=== PATIENT | female | born 1950 | race Caucasian/White ===

== ENCOUNTER 2016-11-18 21:07 | Emergency (ER) | payer MEDICARE, MEDICAID ==
[2016-11-18 22:11] LABS: #Basophils 0.1 thou/uL (0.0-0.2); #Eosinphils 0.1 thou/uL (0.0-0.7); #Lymphocytes 2.6 thou/uL (1.20-3.40); #Monocytes 0.8 thou/uL (0.11-0.59); #Neutrophils 9.8 thou/uL (1.40-6.50); %Basophils 0.9 % (0.0-1.0); %Eosinophils 0.5 % (0.0-10.0); %Lymphocytes 19.2 % (21.0-51.0); %Monocytes 6.1 % (0.0-10.0); Hematocrit 39.1 % (36.0-47.0); Mean Platelet Volume 7.2 fL (7.4-10.4); Red Blood Cell (RBC) Count 4.36 mill/uL (4.20-5.40); White Blood Cell (WBC) Count 13.3 thou/uL (4.8-10.8)
[2016-11-18 22:16] LABS: ALT (SGPT) 25 U/L (8-55); AST (SGOT) 28 U/L (5-34); Alkaline Phosphatase 108 U/L (40-150); Anion Gap 18 mmol/L (10-20); BUN (Urea Nitrogen) 15 mg/dL (9.8-20.1); Bilirubin, Total 0.4 mg/dL (0.2-1.2); Calc. Creatinine Clearance 0 mL/min (70-130); Calcium 10.5 mg/dL (7.8-10.44); Carbon Dioxide 21 mmol/L (23-31); Chloride 105 mmol/L (98-107); Estimated GFR-MDRD 52; Globulin 3.7 g/dL (2.4-3.5)
== END 2016-11-18 22:48 | disposition home or self-care (01) ==
LOC: SCSER 21:07
DX: R19.7 Diarrhea, unspecified (principal); E78.5 Hyperlipidemia, unspecified; E78.00 Pure hypercholesterolemia, unspecified; K21.9 Gastro-esophageal reflux disease without esophagitis; I10 Essential (primary) hypertension; J45.909 Unspecified asthma, uncomplicated; Z87.891 Personal history of nicotine dependence; Z79.899 Other long term (current) drug therapy
CPT/HCPCS: 80053; 85025; 96360

== ENCOUNTER 2017-02-22 12:01 | Emergency (ER) | payer MEDICARE, MEDICAID | END 2017-02-22 12:23 | disposition home or self-care (01) | LOC: SCSER 12:01 | DX: R04.0 Epistaxis (principal); E78.5 Hyperlipidemia, unspecified; K21.9 Gastro-esophageal reflux disease without esophagitis; I10 Essential (primary) hypertension; J44.9 Chronic obstructive pulmonary disease, unspecified; F41.9 Anxiety disorder, unspecified; Z87.891 Personal history of nicotine dependence; Z79.52 Long term (current) use of systemic steroids; Z79.899 Other long term (current) drug therapy | CPT/HCPCS: 99283 ==

== ENCOUNTER 2017-03-11 17:02 | Emergency (ER) | payer MEDICARE, MEDICAID | END 2017-03-11 17:30 | disposition home or self-care (01) | LOC: SCSER 17:02 | DX: R09.81 Nasal congestion (principal); E78.5 Hyperlipidemia, unspecified; K21.9 Gastro-esophageal reflux disease without esophagitis; I10 Essential (primary) hypertension; J44.9 Chronic obstructive pulmonary disease, unspecified; F41.9 Anxiety disorder, unspecified; Z87.891 Personal history of nicotine dependence; Z79.899 Other long term (current) drug therapy | CPT/HCPCS: 30901; 99203; 99283; G0463 ==

== ENCOUNTER 2017-03-12 14:44 | Emergency (ER) | payer MEDICARE, MEDICAID | END 2017-03-12 15:45 | disposition home or self-care (01) | LOC: ERS 14:44 | DX: R09.81 Nasal congestion (principal); E78.5 Hyperlipidemia, unspecified; F41.9 Anxiety disorder, unspecified; J44.9 Chronic obstructive pulmonary disease, unspecified; K21.9 Gastro-esophageal reflux disease without esophagitis; I10 Essential (primary) hypertension; Z87.891 Personal history of nicotine dependence; Z79.899 Other long term (current) drug therapy | CPT/HCPCS: 99283 ==

== ENCOUNTER 2017-03-13 15:16 | Emergency (ER) | payer MEDICARE, MEDICAID | END 2017-03-13 15:26 | disposition home or self-care (01) | LOC: ERS 15:16 | DX: R04.0 Epistaxis (principal); E78.5 Hyperlipidemia, unspecified; K21.9 Gastro-esophageal reflux disease without esophagitis; I10 Essential (primary) hypertension; J44.9 Chronic obstructive pulmonary disease, unspecified; F41.9 Anxiety disorder, unspecified; Z87.891 Personal history of nicotine dependence | CPT/HCPCS: 99283 ==

== ENCOUNTER 2017-03-14 11:59 | Emergency (ER) | payer MEDICARE, MEDICAID | END 2017-03-14 12:48 | disposition home or self-care (01) | LOC: ERS 11:59 | DX: R09.81 Nasal congestion (principal); E78.5 Hyperlipidemia, unspecified; K21.9 Gastro-esophageal reflux disease without esophagitis; I10 Essential (primary) hypertension; J45.909 Unspecified asthma, uncomplicated; Z87.891 Personal history of nicotine dependence | CPT/HCPCS: 99214; 99283; G0463 ==

== ENCOUNTER 2017-03-15 18:00 | Emergency (ER) | payer MEDICARE, MEDICAID | END 2017-03-15 19:02 | disposition home or self-care (01) | LOC: SCSER 18:00 | DX: R09.81 Nasal congestion (principal); E78.5 Hyperlipidemia, unspecified; K21.9 Gastro-esophageal reflux disease without esophagitis; I10 Essential (primary) hypertension; J45.909 Unspecified asthma, uncomplicated; J44.9 Chronic obstructive pulmonary disease, unspecified; F41.9 Anxiety disorder, unspecified; Z87.891 Personal history of nicotine dependence; Z79.899 Other long term (current) drug therapy | CPT/HCPCS: 99283 ==

== ENCOUNTER 2017-04-11 16:16 | Emergency (ER) | payer MEDICARE, MEDICAID | END 2017-04-11 16:35 | disposition home or self-care (01) | LOC: ERS 16:16 | DX: R04.0 Epistaxis (principal); E78.5 Hyperlipidemia, unspecified; K21.9 Gastro-esophageal reflux disease without esophagitis; I10 Essential (primary) hypertension; J44.9 Chronic obstructive pulmonary disease, unspecified; F41.9 Anxiety disorder, unspecified; Z87.891 Personal history of nicotine dependence | CPT/HCPCS: 99283 ==

== ENCOUNTER 2017-04-12 09:12 | Outpatient (CLI) | payer MEDICARE, MEDICAID ==
--- NOTE | 2017-04-12 09:41 | RAD ---
PA AND LATERAL VIEWS CHEST: HISTORY: Dyspnea. FINDINGS: Comparison is made with the exam of 09/16/16. The heart size is normal. The lungs are well expanded with confluent areas of consolidation, pneumot horaces, or pleural effusions. There are mild degenerative changes in the spine. IMPRESSION: No acute process. POS: [facility]
== END 2017-04-12 09:13 | disposition home or self-care (01) ==
LOC: RAD 09:12
PROVIDERS: ATTEND Internal Medicine Critical Care Medicine
DX: R06.00 Dyspnea, unspecified (principal)
CPT/HCPCS: 71046

== ENCOUNTER 2017-05-30 14:34 | Emergency (ER) | payer MEDICARE, OTHER ==
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
[2017-05-30] MEDS ORDERED: Adacel (T-DAP) 0.5 ML VIAL ONE (15:31)
== END 2017-05-30 15:52 | disposition home or self-care (01) ==
LOC: ERS 14:34
DX: S80.02XA Contusion of left knee, initial encounter (principal); E78.5 Hyperlipidemia, unspecified; K21.9 Gastro-esophageal reflux disease without esophagitis; I10 Essential (primary) hypertension; J44.9 Chronic obstructive pulmonary disease, unspecified; F41.9 Anxiety disorder, unspecified; Z87.891 Personal history of nicotine dependence; W22.8XXA Striking against or struck by other objects, initial encounter
CPT/HCPCS: 90471; 90715

== ENCOUNTER 2017-07-25 17:08 | Emergency (ER) | payer MEDICARE, OTHER | END 2017-07-25 17:46 | disposition home or self-care (01) | LOC: ERS 17:08 | DX: R04.0 Epistaxis (principal); E78.5 Hyperlipidemia, unspecified; K21.9 Gastro-esophageal reflux disease without esophagitis; I10 Essential (primary) hypertension; J44.9 Chronic obstructive pulmonary disease, unspecified; F41.9 Anxiety disorder, unspecified; Z87.891 Personal history of nicotine dependence | CPT/HCPCS: 99283 ==

== ENCOUNTER 2017-09-25 09:32 | Emergency (ER) | payer MEDICARE, MEDICAID | END 2017-09-25 11:46 | disposition home or self-care (01) | LOC: ERS 09:32 | DX: R04.0 Epistaxis (principal); J06.9 Acute upper respiratory infection, unspecified; E78.5 Hyperlipidemia, unspecified; K21.9 Gastro-esophageal reflux disease without esophagitis; I10 Essential (primary) hypertension; J44.9 Chronic obstructive pulmonary disease, unspecified; Z87.891 Personal history of nicotine dependence; F41.9 Anxiety disorder, unspecified; Z79.899 Other long term (current) drug therapy | CPT/HCPCS: 99283 ==

== ENCOUNTER 2017-11-06 14:01 | Emergency (ER) | payer MEDICARE, MEDICAID ==
[2017-11-06 15:23] LABS: Base Excess-Venous 3.3 mmol/L (0 (+/- 2.5)); CO2 Tension (PvCO2) 47.3 mmHg (41.0-51.0); Calcium, Ionized 1.18 mmol/L (1.12-1.32); Hemoglobin - Calc 13.8 g/dL (12.0-18.0); O2 Tension (PvO2) 35.9 mmHg (35.0-45.0); Potassium 4.2 mmol/L (3.4-4.7); T. Carbon Dioxide 30.4 mmol/L (1.0-85.0); pH (Venous) 7.395 (7.35-7.45); vO2 Saturation-calc 67.8 % (94-98)
== END 2017-11-06 16:07 | disposition home or self-care (01) ==
LOC: ERS 14:01
DX: R20.2 Paresthesia of skin (principal); E78.5 Hyperlipidemia, unspecified; K21.9 Gastro-esophageal reflux disease without esophagitis; I10 Essential (primary) hypertension; J44.9 Chronic obstructive pulmonary disease, unspecified; F41.9 Anxiety disorder, unspecified; Z87.891 Personal history of nicotine dependence; Z79.899 Other long term (current) drug therapy
CPT/HCPCS: 82330; 82435; 82803; 84132; 84295; 85014; 99283

== ENCOUNTER 2017-11-15 09:19 | Outpatient (CLI) | payer MEDICARE, MEDICAID | END 2017-11-15 09:20 | disposition home or self-care (01) | LOC: BICMAMMO 09:19 | PROVIDERS: ATTEND Family Medicine | DX: Z12.31 Encounter for screening mammogram for malignant neoplasm of breast (principal); M81.0 Age-related osteoporosis without current pathological fracture; J44.9 Chronic obstructive pulmonary disease, unspecified; R92.1 Mammographic calcification found on diagnostic imaging of breast; Z80.3 Family history of malignant neoplasm of breast | CPT/HCPCS: 77063; 77067; 77080 ==

== ENCOUNTER 2017-12-23 21:00 | Emergency (ER) | payer MEDICARE, MEDICAID ==
--- NOTE | 2017-12-23 21:57 | RAD ---
CHEST ONE VIEW: HISTORY: Pain. COMPARISON: 09/16/2016 and 04/12/2017 FINDINGS: Normal cardiac silhouette. Pulmonary vessels and hilum are normal. Costophrenic angles are clear. Emphysema with chronic changes. No consolidation or mass. No pneumothorax or osseous abnormalities. IMPRESSION: 1. Emphysematous changes. 2. No acute process. POS: [facility]
[2017-12-23 22:04] LABS: #Eosinphils 0.1 thou/uL (0.0-0.7); #Lymphocytes 2.5 thou/uL (1.20-3.40); #Monocytes 0.9 thou/uL (0.11-0.59); #Neutrophils 7.1 thou/uL (1.40-6.50); %Basophils 0.5 % (0.0-1.0); %Eosinophils 1.2 % (0.0-10.0); %Lymphocytes 23.5 % (21.0-51.0); %Monocytes 8.5 % (0.0-10.0); %Neutrophils 66.4 % (42.0-75.0); Hemoglobin 12.6 g/dL (12.0-16.0); Mean Corpuscular HGB CONC 32.5 g/dL (32.0-36.0); Mean Corpuscular Hemoglobin 30.3 pg (27.0-31.0); Mean Corpuscular Volume 93.1 fL (78.0-98.0); Mean Platelet Volume 7.1 fL (7.4-10.4); Platelet Count 259 thou/uL (130-400); RBC Distribution Width 14.2 % (11.5-14.5); Red Blood Cell (RBC) Count 4.16 mill/uL (4.20-5.40); White Blood Cell (WBC) Count 10.7 thou/uL (4.8-10.8)
[2017-12-23 22:21] LABS: ALT (SGPT) 19 U/L (8-55); AST (SGOT) 22 U/L (5-34); Albumin 4.2 g/dL (3.4-4.8); Alkaline Phosphatase 95 U/L (40-150); Anion Gap 14 mmol/L (10-20); BUN (Urea Nitrogen) 13 mg/dL (9.8-20.1); Bilirubin, Total 0.4 mg/dL (0.2-1.2); Calc. Creatinine Clearance 0 mL/min (70-130); Calcium 10.1 mg/dL (7.8-10.44); Carbon Dioxide 23 mmol/L (23-31); Chloride 105 mmol/L (98-107); Estimated GFR-MDRD 47; Globulin 3.1 g/dL (2.4-3.5); Glucose 96 mg/dL (80-115); Potassium 4.1 mmol/L (3.5-5.1); Protein, Total 7.3 g/dL (6.0-8.3); Sodium 138 mmol/L (136-145)
[2017-12-23 22:26] LABS: CKMB 3.2 ng/mL (0-6.6); Troponin I Less than 0.010 ng/mL (< 0.028)
[2017-12-23] MEDS ORDERED: predniSONE 20 MG TAB ONE ×2 (22:49→22:51)
== END 2017-12-23 22:56 | disposition home or self-care (01) ==
LOC: ERS 21:00
DX: J44.1 Chronic obstructive pulmonary disease with (acute) exacerbation (principal); E78.5 Hyperlipidemia, unspecified; K21.9 Gastro-esophageal reflux disease without esophagitis; F41.9 Anxiety disorder, unspecified; Z87.891 Personal history of nicotine dependence; Z79.899 Other long term (current) drug therapy; I10 Essential (primary) hypertension
CPT/HCPCS: 36415; 71045; 80053; 82553; 84484; 85025; 93005; 94760; J7506

== ENCOUNTER 2017-12-25 16:58 | Inpatient (IN) | payer MEDICARE, MEDICAID ==
[~2017-12-25 16:58] MED LIST: Iopamidol 370 76% 100 ML VIAL ONE
[2017-12-25] MEDS ORDERED: Albuterol Sulfate 2.5 mg/0.5 ml Neb ONE ×2 (17:17)
[2017-12-25] MEDS ORDERED: Dexamethasone 10 MG/ML VIAL ONE (17:22)
[2017-12-25] MEDS ORDERED: Magnesium 2 GM/50 ML BAG (IN WATER) ONE (17:22)
[2017-12-25 17:28] LABS: Actual Bicarbonate (HCO3a) 20.9 mEq/L (22-28); Analyzer IN Cardio ER; Base Excess (BEa) -4.4 mEq/L (-2.0 to +3.0); CO2 Tension 39.4 mmHg (35.0-45.0); Calcium, Ionized 1.23 mmol/L (1.12-1.30); Carboxyhemoglobin (COHb) 0.6 gm% (0.0-3.0); Hemoglobin (Hb) 14.1 g/dL (12.0-16.0); O2 Tension (PaO2) 203.2 mmHg (> 80.0); Potassium - ABG Lab 4.77 mmol/L (3.70-5.30); pH, Arterial 7.34 (7.35-7.45)
[2017-12-25 17:29] LABS: Puncture Site RRA
[2017-12-25 17:36] LABS: #Eosinphils 0.1 thou/uL (0.0-0.7); #Lymphocytes 1.6 thou/uL (1.20-3.40); #Monocytes 0.6 thou/uL (0.11-0.59); #Neutrophils 13.5 thou/uL (1.40-6.50); %Basophils 0.1 % (0.0-1.0); %Eosinophils 0.8 % (0.0-10.0); %Lymphocytes 10.2 % (21.0-51.0); %Monocytes 3.5 % (0.0-10.0); %Neutrophils 85.4 % (42.0-75.0); Hemoglobin 13.9 g/dL (12.0-16.0); Mean Corpuscular HGB CONC 32.4 g/dL (32.0-36.0); Mean Corpuscular Hemoglobin 30.5 pg (27.0-31.0); Mean Corpuscular Volume 94.1 fL (78.0-98.0); Mean Platelet Volume 8.5 fL (7.4-10.4); Platelet Count 296 thou/uL (130-400); Red Blood Cell (RBC) Count 4.55 mill/uL (4.20-5.40); White Blood Cell (WBC) Count 15.8 thou/uL (4.8-10.8)
[2017-12-25 17:57] LABS: CKMB 3.2 ng/mL (0-6.6); Troponin I Less than 0.010 ng/mL (< 0.028)
[2017-12-25] MEDS ORDERED: levETIRAcetam In NaCl (Iso-Os) 1,000 MG in Premix Bag 1 BAG IVPB SCH (18:15)
[2017-12-25] MEDS ORDERED: fentaNYL Citrate/PF 2,000 MCG in Sodium Chloride 0.9% 60 ML IV SCH ×3 (18:21→23:11)
--- NOTE | 2017-12-25 18:21 | RAD ---
CHEST ONE VIEW: 12/25/17 COMPARISON: 12/23/17 HISTORY: Dyspnea FINDINGS: Normal cardiac silhouette. Atherosclerosis of the aortic knob. Pulmonary vessels and hilum are normal . Costophrenic angles are clear. Costophrenic angles are clear. Lungs are hyperinflated with chronic changes. Stable emphysematous change involving the right upper lobe. No significant pleural effusion. No pneumothorax or osseous abnormalities. IMPRESSION: 1. COPD. Hyperinflation. 2. Emphysema. POS: [facility]
[2017-12-25 18:22] LABS: Actual Bicarbonate (HCO3a) 19.6 mEq/L (22-28); Analyzer IN Cardio ER; CO2 Tension 43.4 mmHg (35.0-45.0); Calcium, Ionized 1.19 mmol/L (1.12-1.30); Hemoglobin (Hb) 12.6 g/dL (12.0-16.0); O2 Tension (PaO2) 315.2 mmHg (> 80.0); Potassium - ABG Lab 3.87 mmol/L (3.70-5.30); pH, Arterial 7.27 (7.35-7.45)
--- NOTE | 2017-12-25 18:54 | RAD ---
RIGHT HIP TWO VIEWS: 12/25/17 HISTORY: Trauma. Pain. FINDINGS: There is a right femoral neck fracture with associated foreshortening and deformity. The visualized b sebastian pelvis is unremarkable. IMPRESSION: Right femoral neck fracture. POS: [facility]
--- NOTE | 2017-12-25 19:00 | CT ---
NONCONTRAST HEAD CT: HISTORY: Altered mental status. COMPARISON: None. FINDINGS: No parenchymal hemorrhage. No extra-axial hematoma. No midline shift. Basilar cisterns are patent. Br ain volume, age appropriate. There is malacic change involving the left frontal and parietal lobe joseluis r the vertex. Remainder of the cerebrum demonstrates preservation of cortical brice-white matter diff erentiation, with the exception of a small focus of the sulci of the right parietal lobe also near th e vertex. No evidence of hydrocephalus. Hypoattenuation in the inferior right lentiform nucleus likel y due to a perivascular space versus remote lacunar infarction. Small area of atrophy in the left cerebellar hemisphere. Calvarium is intact. Adequate aeration of the sinuses. Minimal opacification of the left mastoid air cells. Cavernous carotid atherosclerosis is noted. IMPRESSION: 1. No acute intracranial process. 2. Chronic changes of the brain parenchyma as described above. 3. If there is concern, further evaluation with brain MRI. POS: [facility]
--- NOTE | 2017-12-25 19:04 | RAD ---
CHEST ONE VIEW: 12/25/17 COMPARISON: 12/25/17 HISTORY: Dyspnea. Status post tube placement. FINDINGS: Nasogastric tube extends beyond the diaphragm. Distal tip is not seen. Endotracheal tube extends beyo nd the clavicles. Stable opacification and changes of the lung parenchyma. Stable hyperinflation. Stable atherosclerosi s of the aorta. IMPRESSION: Interval placement of endotracheal and nasogastric tube. POS: [facility]
[2017-12-25 19:06] LABS: Bilirubin Negative (Negative); Blood, Urine Trace (Negative); Clarity CLEAR (Clear); Glucose, Urine (Dipstick) Negative (Negative); Leukocyte Negative (Negative); Nitrite Negative (Negative); Protein, Urine (Dipstick) 30 mg/dL (Neg-Trace); Specific Gravity, Urine 1.035 (1.002-1.036); Urobilinogen 0.2 mg/dL (0.2-1.0); pH, Urine 5.5 (5.0-9.0)
[2017-12-25 19:08] LABS: Bacteria/HPF None Seen HPF (None Seen); WBC/HPF 0-3 HPF (0-3)
--- NOTE | 2017-12-25 19:09 | RAD ---
PELVIS ONE VIEW: 12/25/17 HISTORY: Pain and trauma. FINDINGS: There appears to be an acute fracture involving the left superior pubic ramus. An inferior pubic erika s fracture on the left is not appreciated. Sacral ala are preserved. Sacroiliac joints are patent and symmetric. There is a right femoral neck fracture with foreshortening and patient rotation. Based on this single projection, no evidence of a left hip fracture. IMPRESSION: 1. Left superior pubic ramus fracture. Inferior pubic ramus fracture is not appreciated. 2. Right femoral neck fracture. POS: [facility]
[2017-12-25 19:10] LABS: Puncture Site RRA
[2017-12-25] MEDS ORDERED: Aspirin 300 MG Suppository ONE (19:15)
[2017-12-25 19:29] LABS: Hyaline Casts/LPF 0-3 HYALINE CAST LPF (0-3 Hyaline); Other Casts/LPF 0-3 COARSE GRAN LPF (0-3 Hyaline); Renal Epithelial 0-3 HPF (0-3); Transitional Epithelial 0-3 HPF (0-3)
[2017-12-25 19:43] LABS: ALT (SGPT) 23 U/L (8-55); AST (SGOT) 26 U/L (5-34); Albumin 3.7 g/dL (3.4-4.8); Alkaline Phosphatase 92 U/L (40-150); Anion Gap 15 mmol/L (10-20); BUN (Urea Nitrogen) 18 mg/dL (9.8-20.1); Bilirubin, Total 0.4 mg/dL (0.2-1.2); CK (CPK) 147 U/L (29-168); Calc. Creatinine Clearance 0 mL/min (70-130); Calcium 8.9 mg/dL (7.8-10.44); Carbon Dioxide 20 mmol/L (23-31); Chloride 108 mmol/L (98-107); Estimated GFR-MDRD 42; Globulin 2.9 g/dL (2.4-3.5); Glucose 158 mg/dL (80-115); Lipase 13 U/L (8-78); Protein, Total 6.6 g/dL (6.0-8.3); Sodium 139 mmol/L (136-145)
--- NOTE | 2017-12-25 19:46 | CT ---
CT ANGIOGRAM OF THE CHEST 12/25/17 HISTORY: Evaluate for pulmonary artery embolism. Recent fall. Difficulty breathing. COMPARISON: None. TECHNIQUE: CT angiogram of the chest is performed in the axial plane. Three dimensional reformatted images are s ubmitted for interpretation. FINDINGS: No mediastinal mass, lymphadenopathy or hematoma. Heart size is within normal limits. No pericardial effusion. There are coronary artery calcifications. The visualized aorta has a normal caliber. No per iaortic fat stranding. Endotracheal tube and nasogastric tube are in noted. Central bronchi are paten t. Dependent atelectatic changes. There are patchy opacities involving both lower lobes with ground g lass opacification and more focal consolidation in both lower lobes which may also represent pneumoni a or atelectasis. Patchy ground glass opacities are noted to a lesser extent in the upper lobes. Dillan elate for areas of edema. There are no suspicious masses in the upper lobes. No pneumothorax. Emphys ematous changes are noted. No lytic or blastic lesions in the osseous structures. Adequate contrast opacification in the pulmona ry arterial system to the level of the segmental arteries. No filling defect to suggest thromboemboli sm. The visualized upper solid organs are grossly unremarkable. There does appear to be some mild mucosal enhancement of the gallbladder, incompletely evaluated. IMPRESSION: 1. No evidence of pulmonary artery embolism to the level of the segmental arteries. 2. Stable emphysematous changes with areas of probable lung parenchymal edema. There are small b ilateral effusions. 3. Consolidation in both lower lobes likely due to atelectasis or bibasilar pneumonia. 4. Incomplete evaluated gallbladder. There is mild mucosal enhancement of the gallbladder wall. Nonemergent gallbladder ultrasound can be performed. POS: [facility]
[2017-12-25] MEDS ORDERED: Sodium Chloride 0.9% 1,000 ML IV SCH (20:21)
[2017-12-25] MEDS ORDERED: Propofol BOLUS 1,000 MG/100 ML VIAL IV PRN ×2 (20:22→23:11)
[2017-12-25] MEDS ORDERED: Propofol 1,000 MG/100 ML VIAL IV PRN ×2 (20:22→23:11)
[2017-12-25] MEDS ORDERED: Fentanyl BOLUS 250 ML IVPB PRN ×2 (20:22→23:11)
[2017-12-25] MEDS ORDERED: DISCONTINUE PREVIOUS NARCOTIC PAIN MEDICATIONS AND BENZODIAZEPINES FS SCH ×2 (20:22→23:11)
[2017-12-25] MEDS ORDERED: Lorazepam 2 MG/ML VIAL SLOW IVP PRN (20:22)
[2017-12-25 21:25] LABS: Lactic Acid 2.5 mmol/L (0.5-2.2)
[2017-12-25 22:49] LABS: Actual Bicarbonate (HCO3a) 22.2 mEq/L (22-28); Base Excess (BEa) -6.8 mEq/L (-2.0 to +3.0); CO2 Tension 59.7 mmHg (35.0-45.0); Calcium, Ionized 1.21 mmol/L (1.12-1.30); Carboxyhemoglobin (COHb) 0.9 gm% (0.0-3.0); Hemoglobin (Hb) 13.8 g/dL (12.0-16.0); O2 Tension (PaO2) 65.3 mmHg (> 80.0); Potassium - ABG Lab 4.53 mmol/L (3.70-5.30)
[2017-12-25] MEDS ORDERED: Bisacodyl 5 MG TAB PO PRN (22:51)
[2017-12-25] MEDS ORDERED: Lacri-Lube Opth Oint 3.5 GM TUBE EA EYE PRN (22:51)
[2017-12-25] MEDS ORDERED: Acetaminophen 325 MG Suppository PR PRN (22:51)
[2017-12-25] MEDS ORDERED: Insulin Regular 300 UNITS/3 ML VIAL SC PRN ×2 (22:51)
[2017-12-25] MEDS ORDERED: Norepinephrine 8 MG/0.9% NS 250 ML IVPB PRN (22:51)
[2017-12-25] MEDS ORDERED: CCU Electrolyte Replacement 1 EACH IVPB ONE (22:51)
[2017-12-25] MEDS: Sodium Chloride 0.9% 500 ML IVPB PRN (23:00)
[2017-12-25] MEDS ORDERED: Ventilator Sedation Protocol 1 EACH FS SCH (23:00)
[2017-12-25 23:46] LABS: Actual Bicarbonate (HCO3a) 19.9 mEq/L (22-28); Base Excess (BEa) -8.3 mEq/L (-2.0 to +3.0); CO2 Tension 52.1 mmHg (35.0-45.0); Calcium, Ionized 1.17 mmol/L (1.12-1.30); Carboxyhemoglobin (COHb) 0.9 gm% (0.0-3.0); Hemoglobin (Hb) 12.8 g/dL (12.0-16.0); Potassium - ABG Lab 4.38 mmol/L (3.70-5.30)
[2017-12-25 23:55] LABS: Puncture Site RBA; pH, Arterial 7.19 (7.35-7.45)
[2017-12-25 23:56] LABS: ALV-art Gradient 216.575 (0-20)
[2017-12-25 23:59] LABS: ALV-art Gradient 285.675 (0-20); Puncture Site RBA
[2017-12-26] MEDS: Sodium Chloride 0.9% 500 ML IVPB PRN ×2 (00:15→01:31)
[2017-12-26] MEDS ORDERED: Sodium Bicarb 50 MEQ/50 ML Abboject 8.4% SYRINGE IVP SCH (00:15)
[2017-12-26] MEDS: Sodium Chloride 0.9% 1,000 ML IV SCH ×3 (00:15→19:18)
[2017-12-26] MEDS: Cefepime 1 GM in Sodium Chloride 0.9% 100 ML IVPB SCH ×3 (00:16→23:43)
[2017-12-26] MEDS ORDERED: Dextrose 50% Abboject 50 ML SYRINGE SLOW IVP PRN (01:19)
[2017-12-26] MEDS ORDERED: HumaLOG 300 UNITS/3 ML VIAL SC PRN (01:19)
[2017-12-26] MEDS ORDERED: Dextrose 5% in Water 1,000 ML IV PRN (01:19)
[2017-12-26] MEDS ORDERED: Sodium Chloride 0.9% 500 ML IV SCH (01:30)
[2017-12-26] MEDS: Lorazepam 2 MG/ML VIAL SLOW IVP PRN ×2 (01:31→02:39)
[2017-12-26] MEDS ORDERED: Sodium Chloride 0.9% 500 ML IVPB SCH (01:45)
[2017-12-26] MEDS ORDERED: Potassium Phosphate 9 MMOL in Sodium Chloride 0.9% 100 ML IVPB PRN (04:44)
[2017-12-26] MEDS ORDERED: Potassium Chloride 20 MEQ TAB PO PRN (04:44)
[2017-12-26] MEDS ORDERED: Potassium Chloride 40 MEQ in Sodium Chloride 0.9% 250 ML 250 ML IVPB PRN (04:44)
[2017-12-26] MEDS ORDERED: Potassium Phosphate 15 MMOL in Sodium Chloride 0.9% 250 ML 250 ML IV PRN (04:44)
[2017-12-26] MEDS ORDERED: Potassium Chloride 40 MEQ in Premix Bag 1 BAG IVPB PRN (04:44)
[2017-12-26] MEDS ORDERED: Potassium Phosphate 12 MMOL in Sodium Chloride 0.9% 250 ML 250 ML IV PRN (04:44)
[2017-12-26] MEDS ORDERED: Magnesium Oxide 400 MG TAB PO PRN ×2 (04:44)
[2017-12-26] MEDS ORDERED: Magnesium 2 GM/NS 0.9% 100 ML 2 GM in Premix Bag 1 BAG IVPB PRN (04:44)
[2017-12-26] MEDS ORDERED: CCU ELECTROLYTE REPLACEMENT PROTOCOL FS PRN (04:44)
[2017-12-26 04:57] LABS: ALT (SGPT) 22 U/L (8-55); AST (SGOT) 24 U/L (5-34); Albumin 3.4 g/dL (3.4-4.8); Alkaline Phosphatase 87 U/L (40-150); Anion Gap 18 mmol/L (10-20); BUN (Urea Nitrogen) 20 mg/dL (9.8-20.1); Bilirubin, Total 0.5 mg/dL (0.2-1.2); Calc. Creatinine Clearance 59 mL/min (70-130); Calcium 8.2 mg/dL (7.8-10.44); Carbon Dioxide 16 mmol/L (23-31); Chloride 112 mmol/L (98-107); Estimated GFR-MDRD 47; Globulin 2.6 g/dL (2.4-3.5); Glucose 193 mg/dL (80-115); Potassium 4.9 mmol/L (3.5-5.1); Sodium 141 mmol/L (136-145)
[2017-12-26] MEDS ORDERED: DOPamine 400 MG/D5W 250 ML 250 ML ONE (05:02)
[2017-12-26 05:07] LABS: Band 16 % (5-11); Hemoglobin 12.4 g/dL (12.0-16.0); Lymphocytes 3 % (21-51); MDiff Complete? YES; Mean Corpuscular Hemoglobin 30.4 pg (27.0-31.0); Mean Corpuscular Volume 94.9 fL (78.0-98.0); Mean Platelet Volume 7.7 fL (7.4-10.4); Monocytes 3 % (0-10); Neutrophil 78 % (42-75); PLT Morphology Comment Appears Adequate; Platelet Count 193 thou/uL (130-400); RBC Distribution Width 14.6 % (11.5-14.5); White Blood Cell (WBC) Count 29.3 thou/uL (4.8-10.8)
[2017-12-26] MEDS ORDERED: Norepinephrine 8 MG/250 ML BAG IVPB PRN (05:13)
[2017-12-26] MEDS ORDERED: DOPamine 400 MG/D5W 250 ML 250 ML IVPB PRN (05:14)
[2017-12-26] MEDS: HumaLOG 300 UNITS/3 ML VIAL SC PRN ×2 (05:43→13:00)
[2017-12-26] MEDS ORDERED: Dexamethasone 4 mg/ml Vial SLOW IVP SCH (06:00)
--- NOTE | 2017-12-26 06:40 | HP ---
CHIEF COMPLAINT: Evaluation for status post fall. HISTORY OF PRESENT ILLNESS: This is a 67-year-old female with past medical history of hyperlipidemia, GERD, hypertension, asthma, COPD, who is presenting with fall at home, mechanism of fall is unknown per electronic medical records and EMS. It was stated that the patient stumbled and fell while patient was sitting at home. Per the records, was noted that the patient stated that she was having difficulty with her breathing and during that time span the patient fell and patient was complaining of right hip pain and left and right hand injuries. The patient's pain severity was 8/10 and nothing seemed to relieve the pain. REVIEW OF SYSTEMS: Review of systems unable to be obtained since the patient is intubated. PAST MEDICAL HISTORY: Hyperlipidemia, GERD, hypertension, COPD, asthma. FAMILY HISTORY: Reviewed and noncontributory. PAST SURGICAL HISTORY: The patient had rods and screws to the left leg. The patient had tissue removed around her uterus in the past. PSYCHIATRIC HISTORY: The patient has history of anxiety. SOCIAL HISTORY: Former tobacco smoker. The patient used to smoke cigarettes. The patient quit less than 10 years ago. The patient is currently intubated and we are unable to ask if the patient use illicit drugs or alcohol, but per previous history, the patient does not appear to use illicit drugs or alcohol. ALLERGIES: The patient is allergic to CODEINE SULFATE, ESOMEPRAZOLE SODIUM, NEOSPORIN, NITROFURANTOIN, PENICILLIN and SULFONAMIDE. CURRENT MEDICATIONS: The patient is on cetirizine 10 mg, Crestor 10 mg, pantoprazole 40 mg, prednisone 5 mg orally, Singulair 10 mg, spironolactone 25 mg, Symbicort 2 puffs b.i.d., , Bystolic 10 mg, Daliresp 500 mcg, Ventolin 90 mcg per inhalation, Mucinex 1200 mg oral b.i.d. PHYSICAL EXAMINATION: VITAL SIGNS: Blood pressure is 156/81, pulse 150, respiratory rate of 32, O2 sat of 80. GENERAL: The patient is currently lying in bed, intubated and sedated. HEENT: Normocephalic, atraumatic. The patient pupils are reactive to light, patient has ET tube patient has an ET tube and OG tube going through her mouth. NECK: Supple. Trachea is midline. LUNGS: There are some wheezes present at the anterior lung nguyen and ventilated lung sounds. CARDIOVASCULAR: Positive S1, S2. The patient is tachycardic. ABDOMEN: Soft, nontender, nondistended, obese abdomen, positive bowel sounds in all quadrants. No peritoneal signs. EXTREMITIES: Upper extremities: A 5/5 upper extremity strength. Good pulses bilaterally at the radial pulse. Lower extremities: There is externally rotated right hip. No cyanosis noted. The patient has good pulses at the lower extremities bilaterally. NEUROLOGIC: The patient is currently intubated and sedated. SKIN: Warm, dry, and intact. There are some lacerations at the right and left hands. IMAGING: EKG shows sinus tachycardia, rate of about 115. CT of the head showed no acute intracranial process, chronic changes of the brain parenchyma. Pelvis x-ray showed left superior pubic ramus fracture, inferior pubic ramus fracture is not appreciated, right femoral neck fracture. Hip x-ray showed right femoral neck fracture. CTA of the thorax showed no evidence of pulmonary artery embolism to the level of the segmental arteries, stable emphysematous changes with areas of probable lung parenchymal edema. There are small bilateral effusions, consolidation in both lower lobes likely due to atelectasis or bibasilar pneumonia. Chest x-ray shows interval placement of endotracheal and nasogastric tube. LABORATORY DATA: WBC is 15.8, hemoglobin of 13.9, hematocrit is 42.8, platelet count is 296. D-dimer is greater than 20.00. ABGs: pH of 7.20, pCO2 was 52.1 , pO2 is 77.0. Electrolytes: Sodium is 139, potassium is 4.0, chloride is 108 , carbon dioxide of 20, anion gap of 15, BUN is 18, creatinine is 1.25, GFR of 42, glucose is 158. Lactic acid of 5.1, repeat is 2.5, AST 26, ALT 23, alkaline phosphatase is 92. Creatine kinase is 147, CK-MB is 3.2. Troponin is less than 0.010. Lipase is 13, prolactin is 43.69. ASSESSMENT AND PLAN: This is a 67-year-old female being admitted for: 1. Respiratory failure, likely due to combination of hypoxemic and hypercapnic respiratory failure. At this point, the patient has been intubated due to respiratory failure. We will continue patient on the vent and we will monitor the patient closely. We used Ativan and fentanyl to sedate the patient and we will hold off propofol since the patient's blood pressure is currently low. 2. Septic shock likely due to pneumonia. At this point, the patient's blood pressure has been in the 70s after boluses of fluids. We are going to start the patient on dopamine and we will get a central line and transition the patient to Levophed and we will titrate the Levophed to bring the patient's map above 60. Chest x-ray showed that there are some consolidations in the lungs. We will continue patient on antibiotics and we will continue current management. The patient has been admitted to the ICU. We will continue to monitor the patient closely. 3. Hypertension. We will continue to monitor the patient's blood pressure. We will continue to adjust patient's medications to treat patient if blood pressure becomes elevated. 4. History of chronic obstructive pulmonary disease. Currently, patient is in chronic obstructive pulmonary disease exacerbation. We will continue antibiotics. We will monitor the patient closely. 5. History of asthma. Currently, patient is intubated. We will continue patient on current management. 6. Hyperlipidemia. Continue patient on current management. 7. Deep venous thrombosis and gastrointestinal prophylaxis. We will do Lovenox and Pepcid. MTDD
[2017-12-26 07:22] LABS: Actual Bicarbonate (HCO3a) 19.8 mEq/L (22-28); Base Excess (BEa) -6.3 mEq/L (-2.0 to +3.0); CO2 Tension 41.7 mmHg (35.0-45.0); Calcium, Ionized 1.15 mmol/L (1.12-1.30); Carboxyhemoglobin (COHb) 0.9 gm% (0.0-3.0); Hemoglobin (Hb) 12.7 g/dL (12.0-16.0); O2 Tension (PaO2) 63.1 mmHg (> 80.0); Potassium - ABG Lab 4.38 mmol/L (3.70-5.30)
[2017-12-26 07:24] LABS: Puncture Site RRA
[2017-12-26 07:25] LABS: ALV-art Gradient 312.575 (0-20)
[2017-12-26] MEDS ORDERED: Sodium Chloride 0.9% 1,000 ML IV SCH (08:30)
--- NOTE | 2017-12-26 08:37 | CON ---
DATE OF CONSULTATION: 12/26/2017 CHIEF COMPLAINT: Hip injury. HISTORY OF PRESENT ILLNESS: Ms. Askew is a 67-year-old female who was found down yesterday after a fall at her home. She has been admitted to the CCU overnight. She was in respiratory distress. S he has been intubated and is currently intubated and sedated. The exact mechanism of her fall is unk nown, although it is thought she simply stumbled and lost her balance. The patient has severe COPD a nd struggles with this on a daily basis. She is also thought to have pneumonia, currently exacerbati ng her symptoms. She has been somewhat hypotensive overnight and is on pressors currently. Orthoped ics was consulted for the patient's right hip. X-rays were obtained, which demonstrated a right femo ral neck fracture. PAST MEDICAL HISTORY: Hyperlipidemia, GERD, hypertension, severe COPD and asthma. PAST SURGICAL HISTORY: Previous left leg surgery for femoral fracture, previous uterine surgery. PSYCHIATRIC: History of anxiety. REVIEW OF SYSTEMS: Cannot be obtained. FAMILY MEDICAL HISTORY: Cannot be obtained. SOCIAL HISTORY: The patient has a history of cigarette smoking for many years. She does not activel y smoke. There is no history of alcohol or drug use. ALLERGIES: CODEINE, OMEPRAZOLE, NEOSPORIN, NITROFURANTOIN, PENICILLIN, SULFONAMIDE. IMAGES: X-rays of the right hip and pelvis are reviewed. These demonstrate an acute displaced right femoral neck fracture. The patient also has left inferior and superior pubic ramus fractures. Thes e appear to be chronic in nature and in the stage of healing. PHYSICAL EXAMINATION: VITAL SIGNS: Temperature of 99.5, blood pressure is 95/57, pulse is 90. GENERAL: The patient is lying supine, sedated. HEENT: Normocephalic, atraumatic. RESPIRATORY: Intubated on a ventilator. CARDIOVASCULAR: Peripheral pulses are palpable. ABDOMEN: Soft and nondistended. MUSCULOSKELETAL: The patient's right leg is slightly shortened compared to the left. There is no ob vious ecchymosis or significant swelling. She is sitting in an externally rotated position. IMPRESSION: Elderly female status post mechanical fall with a right femoral neck fracture. The ashlee ent is suffering multiple medical problems, primarily with her lungs. She has likely pneumonia, poss ible sepsis and respiratory failure. She is in the Critical Care Unit for ventilatory support and pr essor support. PLAN: At this point, the patient is undergoing Critical Care for her pulmonary concerns and hypotens ion. These efforts will be ongoing. She does have a femoral neck fracture, which would best be eran nael with hemiarthroplasty. She is not a candidate for surgical intervention at this point, but we wi ll closely follow her. When she improves from a pulmonary standpoint and hypotension resolves, we co uld consider proceeding with hemiarthroplasty of the hip. We will need to discuss this further with her family. She will be at high risk for complications given her severe respiratory disease and poor physical condition. Alternative to surgery would be nonoperative treatment; however, this would lik e to leave the patient with very limited mobility and inability to ambulate. Goal of surgery would b e to allow early mobilization. We will continue to follow.
--- NOTE | 2017-12-26 08:45 | CON ---
DATE OF CONSULTATION: 12/26/2017 CONSULTING PHYSICIAN: Dr. Markham REASON FOR CONSULTATION: Acute respiratory failure. HISTORY OF PRESENT ILLNESS: The patient is a 67-year-old female who came into the emergency room las t night after falling at home. She broke her right femoral neck. She was in distress from a respira tory standpoint, had to be intubated. She has been on dopamine all night long. She has not had a ce ntral line in place. Pulmonary was not notified about this patient last night. PAST MEDICAL HISTORY: 1. Hypertension. 2. Hyperlipidemia. 3. Chronic obstructive pulmonary disease - previously seen by Dr. Rodrigues in the past. 4. Asthma. 5. Gastroesophageal reflux. PAST SURGICAL HISTORY: She has had operative repair of left leg fracture. She has had tissue r emoved from her uterus in the past. SOCIAL HISTORY: Former smoker, quit less than 10 years ago. Does not consume alcohol. ALLERGIES: CODEINE, NEXIUM, NEOSPORIN, NITROFURANTOIN, PENICILLIN, SULFONAMIDE. MEDICATIONS PRIOR TO ADMISSION: Cetirizine, Crestor, pantoprazole, prednisone, Singulair, spironolac tone, Symbicort, Bystolic, Daliresp, Ventolin and Mucinex. REVIEW OF SYSTEMS: Cannot be obtained. She is on mechanical ventilation. PHYSICAL EXAMINATION: VITAL SIGNS: Pulse 106, blood pressure 114/73, sat 91%, respiratory rate 22, temperature 99.5. Inta ke since admission 2053, output 125. GENERAL: She is sedated on mechanical ventilation on a fentanyl drip. HEENT: Unremarkable. NECK: No JVD. LUNGS: She has bilateral harsh expiratory wheezing. CARDIOVASCULAR: S1, S2, tachycardic without audible murmur. ABDOMEN: Soft and nontender. EXTREMITIES: No clubbing, cyanosis, or edema. LAB AND X-RAY FINDINGS: White blood cell count 29.3, hematocrit 38.9, platelet count 193. D-dimer g reater than 20. PH 7.30, pCO2 42, pO2 63, SIMV rate 22 with an inspiratory pressure of 25, FiO2 60%. Sodium 141, potassium 4.9, chloride 112, CO2 16, BUN 20, creatinine 1.2, glucose 193. ASSESSMENT: 1. Chronic obstructive pulmonary disease with exacerbation. 2. Fall with right femoral neck fracture. 3. Possible seizure - no evidence of head trauma on brain CT. 4. Sepsis syndrome with elevated white blood cell count, hypotension and atelectatic changes on CT o f the chest. PLAN: 1. She needs a central line so that we can more aggressively treat her hypotension. 2. Consider continuous cardiac output device. 3. Change dopamine to Levophed. 4. Orthopedic consultation. 5. Steroids, antibiotics, and aggressive nebulization treatments. 6. Once she is sedated she will probably require intermittent paralysis for her bronchospasm.
--- NOTE | 2017-12-26 08:48 | CON ---
DATE OF CONSULTATION: 12/25/2017 REASON FOR CONSULTATION: Fall. HISTORY OF PRESENT ILLNESS: Ms. Askew is a 67-year-old woman, who had a witnessed fall at home. Her friend who is with her states that she has been complaining of her hip hurting all day and it gav e out from underneath her and she fell to the ground. While she was on the ground, she became more s hort of breath. She has been having problems with shortness of breath for some time and had been int o the emergency room 2 days earlier for this problem. At this point, she was having enough trouble b reathing that she asked them to call 911. She was brought to the emergency room and was found to hav e room air sats in the 80s. She was still having respiratory issues on oxygen, so she was placed on BiPAP, but shortly thereafter she became increasingly confused and her O2 sats were dropping again, s o the ER physician elected to intubate her. She underwent workup in the emergency room including cristian st x-ray, CT of the head which did not show any bleeding or any acute changes, but did show evidence of previous stroke. She had an elevated D-dimer, so CT angio was also done, but this was negative fo r PE. Her friend states that the patient had been having problems forming words for the past few day s, but had not been confused before arriving in the emergency room and she just slowly became more co nfused as the evening wore on. PAST MEDICAL HISTORY AND REVIEW OF SYSTEMS: Obtained through conversation with the patient's friend who is at the bedside as well as through chart review since the patient is currently unable to give a ny history. By report, she has a past medical history of asthma and chronic obstructive pulmonary di sease with a past medical history of tobacco abuse. The friend does not know of any past history of stroke, nor is there any record of this in the chart. Hyperlipidemia, hypertension, GERD. PAST SURGICAL HISTORY: She has had an ORIF of the left knee, uterine procedure. SOCIAL HISTORY: The patient is a former smoker, but does not drink or use illicit drugs. FAMILY HISTORY: Not documented. ALLERGIES: She has multiple allergies according to the electronic medical record including ESOMEPRAZ OLE, BACITRACIN, CODEINE, NEOSPORIN, NITROFURANTOIN, PENICILLIN and SULFONAMIDE. MEDICATIONS: Outpatient medications according to the chart include cetirizine, Crestor, pantoprazole , prednisone, Singulair, spironolactone, Symbicort, azelastine, Bystolic, Daliresp, Ventolin and Muci nex. PHYSICAL EXAMINATION: VITAL SIGNS: The patient is afebrile, heart rate in the 80s to 90s, blood pressure has been down int o the 90 systolic but came back up to the 120s, saturating 91%-94% on 50% FiO2 on the ventilator, clark athing 16-18 times a minute and urine output has been 35-75 mL per hour over the past few hours. GENERAL: Reveals an elderly woman who appears older than her stated age. She opens her eyes to voic e, does not follow commands. She mostly withdrawals to painful stimuli, although the nurse states th at she did localize once. She does , but does not respond to any questions. HEENT: Pupils are equal and reactive. Midface is stable. No skull injury to palpable. NECK: Supple. She does not exhibit any pain with palpation. HEART: Regular in its rate and rhythm without murmurs, rubs or gallops. LUNGS: Clear to auscultation, although breath sounds are distant. ABDOMEN: Soft and nondistended. Does not exhibit any pain, tenderness to palpation. EXTREMITIES: Cool and she has mild edema of both ankles, I do not appreciate pedal or popliteal puls es. She has skin tears of both upper extremities which by report were present on arrival and occurr ed during the fall. Her right leg is slightly externally rotated. LABORATORY DATA: White count of 15.8 on admission, hematocrit 42.8 and platelets 296. D-dimer was g reater than 20. Blood gas showed a pH of 7.27 with a CO2 of 43 and a pO2 of 215 and a base deficit w as 7. Her initial lactate was elevated at 5.1, but came down to 2.5 on recheck in the emergency room . Creatinine was elevated at 1.25, but electrolytes were otherwise unremarkable. UA showed trace pr otein and blood. CT images are reviewed and I agree with the written report. On post-intubation, est x-ray of the endotracheal tube looks to be in good position. There is a possible left superior r amus fracture on pelvic film and a definite right intertrochanteric fracture. ASSESSMENT: Ground level fall attributed to the right hip going out on her and there is possibility of a preexisting weakness that led to her fall. Orthopedics has been consulted and for right n ow the patient is still having some respiratory issues. In addition, her blood pressure has been rosalinda ewhat labile, urine output , although with additional IV fluids for the patient, actually had no further issues with her blood pressure or urine output. On her last ABG, her her pH was 7.27 , ABG, her pH was 7.18, . Neurology has been consulted and she may require an MRI to evaluate fo r possible new stroke. Her current history of difficulty forming words are certainly suggestive of a n underlying neurologic event preceding her fall.
--- NOTE | 2017-12-26 09:22 | RAD ---
AP VIEW CHEST: HISTORY: Ventilator-dependent patient. FINDINGS: AP view chest was obtained on 12/26/2017. Comparison is made to previous exam from 12/25/2017. AP view chest demonstrates nasogastric and endotracheal tubes to be in place. Both tubes in good pos ition. EKG leads are seen over the chest. Mild to moderate pulmonary vascular congestion is seen. Some prominent interstitial markings are seen throughout the lungs. No significant evidence of acute intrathoracic abnormality is seen. IMPRESSION: Pulmonary vascular congestion and prominent interstitial markings; otherwise unremarkable AP view [facility]. POS: [facility]
[2017-12-26] MEDS: Enoxaparin Sodium 40 MG/0.4 ML SYRINGE SC SCH (09:58)
[2017-12-26] MEDS: Famotidine/PF 20 mg/2ml Vial SLOW IVP SCH ×2 (09:58→21:47)
--- NOTE | 2017-12-26 10:27 | OP ---
DATE OF PROCEDURE: 12/26/2017 PROCEDURE: Right IJ central line placement. PREOPERATIVE DIAGNOSIS: Hypotension with poor IV access. POSTOPERATIVE DIAGNOSIS: Hypotension with poor IV access. ANESTHESIA: A 1% lidocaine without epinephrine. DESCRIPTION OF PROCEDURE: Informed consent was obtained from the patient's daughter. The patient wa s placed in a Trendelenburg position. Her right neck area was cleansed with chlorhexidine and draped sterilely. Ultrasound was used to identify the right IJ vessel. Using modified Seldinger technique , a triple-lumen catheter was placed in the right IJ vessel. Three ports flushed venous blood. Post operative x-ray is pending.
--- NOTE | 2017-12-26 11:30 | CON ---
DATE OF CONSULTATION: 12/26/2017 CONSULTING PHYSICIAN: Hospitalist Service. IMPRESSION: 1. 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 2. Chronic obstructive pulmonary disease. 3. Right femoral neck fracture. 4. No evidence of seizure activity on EEG or by the description of witnesses. 5. Questionable signs of a new stroke on the right. PLAN: 1. Repeat a CT scan of the brain tomorrow and see if there is any evidence of an acute ischemic inju ry. 2. Routine antiplatelet and statin therapy for stroke prevention. 3. Monitor for any seizure activity. HISTORY OF PRESENT ILLNESS: Ms. Askew is a 67-year-old female, who has a history of COPD. She wa s at home walking down the hallway when her friend noticed that she fell. She landed on her right hi p and cried out for help. She asked that the family call 911 right away. No witnessed seizure activ ity was noted by the family members. She was brought into the emergency room and had some degree of respiratory distress and was subsequently intubated. Her CT of the brain shows some encephalomalacia in the left MCA territory and frontal lobe. No acute changes were noted. She is on pressors during the night. No seizure activity has been seen by nursing staff. PAST MEDICAL HISTORY: Hypertension, COPD, stroke. FAMILY HISTORY: Not obtainable. ALLERGIES: BACITRACIN, CODEINE, ESOMEPRAZOLE among others. SOCIAL HISTORY: No alcohol use. REVIEW OF SYSTEMS: Not obtainable. PHYSICAL EXAMINATION: GENERAL: She is a somewhat overweight, elderly lady, on ventilatory support. VITAL SIGNS: Blood pressure 94/58, pulse 100, respirations 20, saturations 95%. HEENT: Pupils were equal. Conjunctivae were clear. Eyes were in midposition. Doll's head maneuver produced appropriate deviation. She is restrained. She withdrew from painful stimulation distally. Her plantar responses were upgoing bilaterally. No abnormal movements were seen. LABORATORY STUDIES: White blood cell count of 15.8, hemoglobin 13.9, platelet count 296. Chemistry panel showed unremarkable findings other than elevated blood glucoses in the mid 100s to 200s range. Prolactin was 43. SUMMARY: This is an elderly lady, who fell and broke her hip. There is some questionable evidence o f a seizure, but it was not witnessed by the family members. I have reviewed her EEG, which shows so me left-sided suppression and slowing consistent with the old stroke, damage, but no evidence of epil eptiform features. I would not start anticonvulsants unless there are some documented recurrences. I would recheck a CT scan for completeness to make sure she did not suffer any new ischemic event.
--- NOTE | 2017-12-26 11:46 | RAD ---
CHEST ONE VIEW: INDICATIONS: History of line placement. COMPARISON: Prior study, dated 12/26/2017. FINDINGS: There is an ET tube and a gastric catheter that remain unchanged. There is a new right IJ central ve nous catheter projecting in the region of the SVC. Chronic lung changes are similar. No pneumothora x is evident. Heart size is normal. IMPRESSION: New right internal jugular central venous catheter without evidence of pneumothorax. The remainder o f the examination appears stable to the comparison study performed earlier, on 12/26/2017. POS: [facility]
--- NOTE | 2017-12-26 16:54 | PDOC.PN ---
- Subjective Encounter Start Date: 12/26/17 Encounter Start Time: 09:40 Pt seen for followup re: acute respiratory failure. denies chest pain, - Objective Resuscitation Status: Resuscitation Status FULL:Full Resuscitation Vital Signs & Weight: Vital Signs (12 hours) Temp Pulse Resp Pulse Ox 12/26/17 15:36 97 12/26/17 14:00 22 H 12/26/17 13:23 97 12/26/17 12:00 99.5 F 34 H 12/26/17 11:01 101 H 12/26/17 10:00 29 H 12/26/17 08:16 103 H 12/26/17 08:00 99.5 F 22 H 94 L 12/26/17 07:25 100 12/26/17 05:50 22 H Weight Admit Weight 179 lb 14.355 oz Weight 183 lb 10.24 oz Most Recent Monitor Data Heart Rate from ECG 101 NIBP 105/63 NIBP BP-Mean 77 Respiration from ECG 24 SpO2 100 I&O: 12/25/17 12/26/17 12/27/17 06:59 06:59 06:59 Intake Total 2854.2 1229 Output Total 810 250 Balance 2044.2 979 Result Diagrams: 12/28/17 04:41 12/28/17 04:41 Additional Labs: Accuchecks 12/26/17 12/26/17 12/25/17 11:08 05:38 23:44 POC Glucose 197 H 211 H 185 H Dx/Plan - Plan * . Review of Systems - Medications/Allergies Allergies/Adverse Reactions: Allergies Allergy/AdvReac Type Severity Reaction Status Date / Time esomeprazole magnesium Allergy Mild Verified 09/05/12 07:16 [From Nexium] bacitracin Allergy Verified 11/02/12 01:41 [From Neosporin ([id number])] bacitracin zinc Allergy Verified 11/02/12 01:41 [From Neosporin ([id number])] codeine Allergy Verified 09/05/12 06:35 metronidazole [From Flagyl] Allergy Verified 12/11/12 09:58 Metronidazole HCl Allergy Verified 12/11/12 09:58 [From Flagyl] neomycin sulfate Allergy Verified 11/02/12 01:41 [From Neosporin ([id number])] nitrofurantoin Allergy Verified 12/11/12 09:58 [Nitrofurantoin] Penicillins Allergy Verified 09/05/12 06:35 polymyxin B Allergy Verified 11/02/12 01:41 [From Neosporin ([id number]-qho-pctby)] sulfacetamide sodium Allergy Verified 12/11/12 09:58 [From Sulfamide] Medications: Current Medications Acetaminophen (Tylenol) 650 mg ID Q6H PRN PRN Reason: Fever > 101 or Mild Pain Albuterol/Ipratropium (Duoneb) 3 ml NEB [id number] [facility] Last Admin: 12/28/17 09:07 Dose: 3 ml Bisacodyl (Dulcolax) 10 mg PO DAILYPRN PRN PRN Reason: Constipation Dextrose/Water (Dextrose 50%) 25 gm SLOW IVP PRN PRN PRN Reason: Hypoglycemia Enoxaparin Sodium (Lovenox) 40 mg SC 0900 [facility] Last Admin: 12/28/17 08:24 Dose: Not Given Famotidine (Pepcid) 20 mg SLOW IVP Q12HR [facility] Last Admin: 12/28/17 08:25 Dose: Not Given Glucagon (Glucagon) 1 mg IM PRN PRN PRN Reason: Hypoglycemia Sodium Chloride (Normal Saline 0.9%) 1,000 mls @ 75 mls/hr IV .[id number] [facility] Last Admin: 12/28/17 04:31 Dose: 1,000 mls Fentanyl Citrate 2,000 mcg/ (Sodium Chloride) 100 mls @ 0 mls/hr IV INF [facility]; Protocol Stop: 01/24/18 23:11 Last Admin: 12/27/17 18:38 Dose: 100 mls Fentanyl Citrate (Fentanyl Bolus) 250 mls @ 0 mls/hr IVPB PRN PRN PRN Reason: Breakthrough pain/agitation Stop: 01/24/18 23:11 Cefepime HCl 1 gm/ Sodium (Chloride) 100 mls @ 200 mls/hr IVPB 1200,2359 [facility] Last Admin: 12/27/17 22:54 Dose: 100 mls Dextrose/Water (D5w) 1,000 mls @ 0 mls/hr IV .Q0M PRN PRN Reason: Hypoglycemia Potassium Chloride 40 meq/ (Sodium Chloride) 270 mls @ 135 mls/hr IVPB ASDIR PRN PRN Reason: FOR SERUM K+ 2.5 - 3.5 Potassium Chloride 40 meq/ (Device) 100 mls @ 50 mls/hr IVPB ASDIR PRN PRN Reason: FOR SERUM K+ 2.5 - 3.5 Magnesium Sulfate 1 gm/ Sodium (Chloride) 102 mls @ 102 mls/hr IV PRN PRN PRN Reason: MAG LEVEL 1.4 - 2.0 Magnesium Sulfate 2 gm/ Device 100 mls @ 100 mls/hr IVPB ASDIR PRN PRN Reason: MAGNESIUM < 1.4 Potassium Phosphate 9 mmol/ (Sodium Chloride) 103 mls @ 25.75 mls/hr IVPB ASDIR PRN PRN Reason: Phosphate 1.0-1.8 Potassium Phosphate 12 mmol/ (Sodium Chloride) 254 mls @ 63.5 mls/hr IV ASDIR PRN PRN Reason: Serum phosphate 0.5-0.9 Potassium Phosphate 15 mmol/ (Sodium Chloride) 255 mls @ 63.75 mls/hr IV ASDIR PRN PRN Reason: Serum Phos < 0.5 Norepinephrine Bitartrate (Levophed) 250 mls @ 0 mls/hr IVPB INF PRN; Protocol PRN Reason: KEEP MAP > 65 Last Admin: 12/27/17 05:34 Dose: 250 mls Levofloxacin 500 mg/ Device 100 mls @ 100 mls/hr IVPB 1200 [facility] Last Admin: 12/27/17 12:00 Dose: 100 mls Fentanyl Citrate (Fentanyl Bolus) 250 mls @ 0 mls/hr IVPB PRN PRN PRN Reason: Breakthrough pain/agitation Stop: 01/25/18 17:15 Insulin Human Lispro (Humalog) 0 units SC .MILD SLIDING SCALE PRN PRN Reason: Mild Correctional Scale Last Admin: 12/27/17 05:57 Dose: 2 unit Insulin Human Lispro (Humalog) 0 units SC .BEDTIME SLIDING SC PRN PRN Reason: Bedtime Correctional Scale Lorazepam (Ativan) 2 mg SLOW IVP Q1H PRN PRN Reason: Breakthrough agitation Stop: 01/24/18 23:11 Last Admin: 12/28/17 02:44 Dose: 2 mg Lorazepam (Ativan) 2 mg SLOW IVP Q1H PRN PRN Reason: Breakthrough agitation Stop: 01/25/18 17:15 Magnesium Oxide (Magnesium Oxide) 400 mg PO BIDPRN PRN PRN Reason: FOR SERUM MAG 1.4 - 2.0 Magnesium Oxide (Magnesium Oxide) 800 mg PO PRN PRN PRN Reason: FOR SERUM MAG < 1.4 Methylprednisolone Sodium Succinate (Solu-Medrol) 40 mg IVP Q6HR [facility] Last Admin: 12/28/17 04:31 Dose: 40 mg Mineral Oil/White Petrolatum (Lacri-Lube Ointment) 0 gm EA EYE PRN PRN PRN Reason: Dry Eyes Miscellaneous Medication (Phos-Nak) 1 pkt PO TIDPRN PRN PRN Reason: FOR PHOS LEVEL 1.0 - 1.8 Miscellaneous Medication (Phos-Nak) 2 pkt PO TIDPRN PRN PRN Reason: FOR PHOS LEVEL 0.5 - 1.0 Morphine Sulfate (Morphine) 2 mg SLOW IVP Q1H PRN PRN Reason: BREAKTHROUGH PAIN/AGITATION Stop: 01/24/18 23:13 Morphine Sulfate (Morphine) 2 mg SLOW IVP Q1H PRN PRN Reason: Breakthrough Pain Discontinue Previous Narcotic Pain Medications And Benzodiazepines 1 each FS .ONE [facility] Stop: 01/24/18 23:11 Ccu Electrolyte (Replacement Protocol) 0 each FS PRN PRN PRN Reason: FOR ELECTROLYTE REPLACEMENT Discontinue Previous Narcotic Pain Medications And Benzodiazepines 1 each FS .ONE [facility] Stop: 01/25/18 17:15 Potassium Chloride (K-Dur) 40 meq PO ASDIR PRN PRN Reason: FOR SERUM K+ 2.5 - 3.5 Potassium Chloride (Klor-Con) 40 meq PER TUBE ASDIR PRN PRN Reason: FOR SERUM K+ 2.5-3.5 Propofol (Diprivan) 1,000 mg IV INF PRN; Protocol PRN Reason: TO ACHIEVE GOAL RASS Stop: 01/25/18 17:15 Last Admin: 12/27/17 09:16 Dose: 1,000 mg Propofol (Diprivan Bolus) 20 mg IV Q5MIN PRN PRN Reason: BREAKTHROUGH AGITATION Stop: 01/25/18 17:15 Sodium Chloride (Flush - Normal Saline) 10 ml IVF Q12HR [facility] Last Admin: 12/28/17 08:25 Dose: Not Given Sodium Chloride (Flush - Normal Saline) 10 ml IVF PRN PRN PRN Reason: Saline Flush
--- NOTE | 2017-12-26 17:02 | PDOC.PN ---
- Subjective Encounter Start Date: 12/26/17 Encounter Start Time: 10:00 Pt seen for followup re: acute hypercapnic respiratory failure. Intubated, unable to obtain ROS. - Objective Resuscitation Status: Resuscitation Status FULL:Full Resuscitation MAR Reviewed: Yes Vital Signs & Weight: Vital Signs (12 hours) Temp Pulse Resp Pulse Ox 12/26/17 15:36 97 12/26/17 14:00 22 H 12/26/17 13:23 97 12/26/17 12:00 99.5 F 34 H 12/26/17 11:01 101 H 12/26/17 10:00 29 H 12/26/17 08:16 103 H 12/26/17 08:00 99.5 F 22 H 94 L 12/26/17 07:25 100 12/26/17 05:50 22 H Weight Admit Weight 179 lb 14.355 oz Weight 183 lb 10.24 oz Most Recent Monitor Data Heart Rate from ECG 101 NIBP 105/63 NIBP BP-Mean 77 Respiration from ECG 24 SpO2 100 I&O: 12/25/17 12/26/17 12/27/17 06:59 06:59 06:59 Intake Total 2854.2 1229 Output Total 810 250 Balance 2044.2 979 Result Diagrams: 12/28/17 04:41 12/28/17 04:41 Additional Labs: Accuchecks 12/26/17 12/26/17 12/25/17 11:08 05:38 23:44 POC Glucose 197 H 211 H 185 H EKG Reviewed by me: Yes (Tele: NSR) Phys Exam - Physical Examination Obese, intubated HEENT: moist MMs, sclera anicteric ETT Respiratory: clear to auscultation bilateral Cardiovascular: RRR, no rub Gastrointestinal: soft No spontaneous limb movements Deviation from normal: Unable to assess Dx/Plan (1) Acute on chronic respiratory failure with hypercapnia Code(s): J96.22 - ACUTE AND CHRONIC RESPIRATORY FAILURE WITH HYPERCAPNIA Status: Acute Comment: Pt is intubated, in CCU (2) Shock Code(s): R57.9 - SHOCK, UNSPECIFIED Status: Acute Comment: Likely septic, from pneumonia. Continue IV dopamine (3) Pneumonia Code(s): J18.9 - PNEUMONIA, UNSPECIFIED ORGANISM Status: Acute Comment: continue IV antibiotics as below (4) Fall Code(s): W19.XXXA - UNSPECIFIED FALL, INITIAL ENCOUNTER Status: Acute Comment: resultant femoral neck fracture (5) Fracture of femoral neck, right Code(s): S72.001A - FRACTURE OF UNSP PART OF NECK OF RIGHT FEMUR, INIT Status : Acute Comment: appreciate orthopedics input. Not a surgical candidate until stable. (6) Gastro-esophageal reflux Code(s): K21.9 - GASTRO-ESOPHAGEAL REFLUX DISEASE WITHOUT ESOPHAGITIS Status: Chronic Comment: stable (7) Hypertension Code(s): I10 - ESSENTIAL (PRIMARY) HYPERTENSION Status: Chronic Comment: pt currently in shock - Plan * . Review of Systems - Medications/Allergies Allergies/Adverse Reactions: Allergies Allergy/AdvReac Type Severity Reaction Status Date / Time esomeprazole magnesium Allergy Mild Verified 09/05/12 07:16 [From Nexium] bacitracin Allergy Verified 11/02/12 01:41 [From Neosporin ([id number]-hkv-[id number])] bacitracin zinc Allergy Verified 11/02/12 01:41 [From Neosporin (zvs-xsr-gimlq)] codeine Allergy Verified 09/05/12 06:35 metronidazole [From Flagyl] Allergy Verified 12/11/12 09:58 Metronidazole HCl Allergy Verified 12/11/12 09:58 [From Flagyl] neomycin sulfate Allergy Verified 11/02/12 01:41 [From Neosporin (htc-jpi-hvprx)] nitrofurantoin Allergy Verified 12/11/12 09:58 [Nitrofurantoin] Penicillins Allergy Verified 09/05/12 06:35 polymyxin B Allergy Verified 11/02/12 01:41 [From Neosporin ([id number]-pvt-[id number])] sulfacetamide sodium Allergy Verified 12/11/12 09:58 [From Sulfamide] Medications: Current Medications Acetaminophen (Tylenol) 650 mg [place] Q6H PRN PRN Reason: Fever > 101 or Mild Pain Albuterol/Ipratropium (Duoneb) 3 ml NEB [id number] [facility] Last Admin: 12/26/17 15:35 Dose: 3 ml Bisacodyl (Dulcolax) 10 mg PO DAILYPRN PRN PRN Reason: Constipation Dextrose/Water (Dextrose 50%) 25 gm SLOW IVP PRN PRN PRN Reason: Hypoglycemia Enoxaparin Sodium (Lovenox) 40 mg SC 0900 [facility] Last Admin: 12/26/17 09:58 Dose: 40 mg Famotidine (Pepcid) 20 mg SLOW IVP Q12HR [facility] Last Admin: 12/26/17 09:58 Dose: 20 mg Glucagon (Glucagon) 1 mg IM PRN PRN PRN Reason: Hypoglycemia Sodium Chloride (Normal Saline 0.9%) 1,000 mls @ 75 mls/hr IV .[id number] [facility] Last Admin: 12/26/17 00:15 Dose: 1,000 mls Fentanyl Citrate 2,000 mcg/ (Sodium Chloride) 100 mls @ 0 mls/hr IV INF [facility]; Protocol Stop: 01/24/18 23:11 Fentanyl Citrate (Fentanyl Bolus) 250 mls @ 0 mls/hr IVPB PRN PRN PRN Reason: Breakthrough pain/agitation Stop: 01/24/18 23:11 Cefepime HCl 1 gm/ Sodium (Chloride) 100 mls @ 200 mls/hr IVPB 1200,2359 [facility] Last Admin: 12/26/17 11:50 Dose: 100 mls Dextrose/Water (D5w) 1,000 mls @ 0 mls/hr IV .Q0M PRN PRN Reason: Hypoglycemia Potassium Chloride 40 meq/ (Sodium Chloride) 270 mls @ 135 mls/hr IVPB ASDIR PRN PRN Reason: FOR SERUM K+ 2.5 - 3.5 Potassium Chloride 40 meq/ (Device) 100 mls @ 50 mls/hr IVPB ASDIR PRN PRN Reason: FOR SERUM K+ 2.5 - 3.5 Magnesium Sulfate 1 gm/ Sodium (Chloride) 102 mls @ 102 mls/hr IV PRN PRN PRN Reason: MAG LEVEL 1.4 - 2.0 Magnesium Sulfate 2 gm/ Device 100 mls @ 100 mls/hr IVPB ASDIR PRN PRN Reason: MAGNESIUM < 1.4 Potassium Phosphate 9 mmol/ (Sodium Chloride) 103 mls @ 25.75 mls/hr IVPB ASDIR PRN PRN Reason: Phosphate 1.0-1.8 Potassium Phosphate 12 mmol/ (Sodium Chloride) 254 mls @ 63.5 mls/hr IV ASDIR PRN PRN Reason: Serum phosphate 0.5-0.9 Potassium Phosphate 15 mmol/ (Sodium Chloride) 255 mls @ 63.75 mls/hr IV ASDIR PRN PRN Reason: Serum Phos < 0.5 Norepinephrine Bitartrate (Levophed) 250 mls @ 0 mls/hr IVPB INF PRN; Protocol PRN Reason: KEEP MAP > 65 Levofloxacin 500 mg/ Device 100 mls @ 100 mls/hr IVPB 1200 [facility] Last Admin: 12/26/17 12:16 Dose: 100 mls Insulin Human Lispro (Humalog) 0 units SC .MILD SLIDING SCALE PRN PRN Reason: Mild Correctional Scale Last Admin: 12/26/17 13:00 Dose: 2 unit Insulin Human Lispro (Humalog) 0 units SC .BEDTIME SLIDING SC PRN PRN Reason: Bedtime Correctional Scale Lorazepam (Ativan) 2 mg SLOW IVP Q1H PRN PRN Reason: Breakthrough agitation Stop: 01/24/18 23:11 Last Admin: 12/26/17 02:39 Dose: 2 mg Magnesium Oxide (Magnesium Oxide) 400 mg PO BIDPRN PRN PRN Reason: FOR SERUM MAG 1.4 - 2.0 Magnesium Oxide (Magnesium Oxide) 800 mg PO PRN PRN PRN Reason: FOR SERUM MAG < 1.4 Methylprednisolone Sodium Succinate (Solu-Medrol) 40 mg IVP Q6HR [facility] Last Admin: 12/26/17 11:50 Dose: 40 mg Mineral Oil/White Petrolatum (Lacri-Lube Ointment) 0 gm EA EYE PRN PRN PRN Reason: Dry Eyes Miscellaneous Medication (Phos-Nak) 1 pkt PO TIDPRN PRN PRN Reason: FOR PHOS LEVEL 1.0 - 1.8 Miscellaneous Medication (Phos-Nak) 2 pkt PO TIDPRN PRN PRN Reason: FOR PHOS LEVEL 0.5 - 1.0 Morphine Sulfate (Morphine) 2 mg SLOW IVP Q1H PRN PRN Reason: BREAKTHROUGH PAIN/AGITATION Stop: 01/24/18 23:13 Discontinue Previous Narcotic Pain Medications And Benzodiazepines 1 each FS .ONE [facility] Stop: 01/24/18 23:11 Ccu Electrolyte (Replacement Protocol) 0 each FS PRN PRN PRN Reason: FOR ELECTROLYTE REPLACEMENT Potassium Chloride (K-Dur) 40 meq PO ASDIR PRN PRN Reason: FOR SERUM K+ 2.5 - 3.5 Potassium Chloride (Klor-Con) 40 meq PER TUBE ASDIR PRN PRN Reason: FOR SERUM K+ 2.5-3.5 Sodium Chloride (Flush - Normal Saline) 10 ml IVF Q12HR [facility] Last Admin: 12/26/17 09:58 Dose: 10 ml Sodium Chloride (Flush - Normal Saline) 10 ml IVF PRN PRN PRN Reason: Saline Flush
[2017-12-26] MEDS ORDERED: DISCONTINUE PREVIOUS NARCOTIC PAIN MEDICATIONS AND BENZODIAZEPINES FS SCH (17:15)
[2017-12-26] MEDS ORDERED: Propofol BOLUS 1,000 MG/100 ML VIAL IV PRN (17:15)
[2017-12-26] MEDS ORDERED: Lorazepam 2 MG/ML VIAL SLOW IVP PRN (17:15)
[2017-12-26] MEDS ORDERED: Fentanyl BOLUS 250 ML IVPB PRN (17:15)
[2017-12-26] MEDS: Propofol 1,000 MG/100 ML VIAL IV PRN (20:02)
[2017-12-27 05:23] LABS: ALT (SGPT) 16 U/L (8-55); AST (SGOT) 23 U/L (5-34); Albumin 2.9 g/dL (3.4-4.8); Alkaline Phosphatase 70 U/L (40-150); Anion Gap 9 mmol/L (10-20); BUN (Urea Nitrogen) 29 mg/dL (9.8-20.1); Bilirubin, Total 0.3 mg/dL (0.2-1.2); Calc. Creatinine Clearance 0 mL/min (70-130); Calcium 8.3 mg/dL (7.8-10.44); Carbon Dioxide 21 mmol/L (23-31); Chloride 113 mmol/L (98-107); Estimated GFR-MDRD 45; Globulin 2.4 g/dL (2.4-3.5); Glucose 169 mg/dL (80-115); Potassium 4.2 mmol/L (3.5-5.1); Protein, Total 5.3 g/dL (6.0-8.3); Sodium 139 mmol/L (136-145)
[2017-12-27 05:24] LABS: Band 5 % (5-11); Hemoglobin 10.8 g/dL (12.0-16.0); Hypochromia SLIGHT = 6-15 cells (100X) (0-5/hpf); Lymphocytes 1 % (21-51); MDiff Complete? YES; Mean Corpuscular HGB CONC 32.7 g/dL (32.0-36.0); Mean Corpuscular Hemoglobin 30.7 pg (27.0-31.0); Mean Corpuscular Volume 93.9 fL (78.0-98.0); Mean Platelet Volume 7.4 fL (7.4-10.4); Monocytes 1 % (0-10); Neutrophil 93 % (42-75); PLT Morphology Comment Appears Adequate; Platelet Count 190 thou/uL (130-400); RBC Distribution Width 14.3 % (11.5-14.5); White Blood Cell (WBC) Count 21.4 thou/uL (4.8-10.8)
[2017-12-27] MEDS: HumaLOG 300 UNITS/3 ML VIAL SC PRN (05:57)
[2017-12-27 06:19] LABS: Actual Bicarbonate (HCO3a) 18.5 mEq/L (22-28); CO2 Tension 32.1 mmHg (35.0-45.0); O2 Tension (PaO2) 89.4 mmHg (> 80.0); pH, Arterial 7.38 (7.35-7.45)
[2017-12-27 06:20] LABS: Base Excess (BEa) -5.8 mEq/L (-2.0 to +3.0); Calcium, Ionized 1.23 mmol/L (1.12-1.30); Carboxyhemoglobin (COHb) 0.6 gm% (0.0-3.0); Hemoglobin (Hb) 11.4 g/dL (12.0-16.0); Potassium - ABG Lab 4.24 mmol/L (3.70-5.30); Puncture Site RR
[2017-12-27 06:26] LABS: ALV-art Gradient 226.975 (0-20)
--- NOTE | 2017-12-27 08:15 | RAD ---
PORTABLE SEMIUPRIGHT FRONTAL CHEST RADIOGRAPH: 12/27/2017 HISTORY: CCU patient. COMPARISON: 12/26/2017 FINDINGS: Detailed assessment is technically limited secondary to positioning of the patient and rotation. Sta ble nasogastric tube, endotracheal tube, and right-sided vascular catheter. Hazy increased density o verlies the left hemithorax, suggesting a layering left-sided pleural effusion. There is increased l inear interstitial density noted, suggesting a combination of interstitial edema and chronic change. Increased density in the medial left lung base suggests partial consolidation/collapse. Persistent nonspecific streaky opacity in the medial right base is noted. IMPRESSION: No significant interval change. POS: [facility]
[2017-12-27] MEDS: Famotidine/PF 20 mg/2ml Vial SLOW IVP SCH ×2 (09:15→22:53)
[2017-12-27] MEDS: Enoxaparin Sodium 40 MG/0.4 ML SYRINGE SC SCH (09:15)
[2017-12-27] MEDS: Propofol 1,000 MG/100 ML VIAL IV PRN (09:16)
[2017-12-27] MEDS: Cefepime 1 GM in Sodium Chloride 0.9% 100 ML IVPB SCH ×2 (13:00→22:54)
--- NOTE | 2017-12-27 15:51 | PDOC.PN ---
- Subjective Encounter Start Date: 12/27/17 Encounter Start Time: 09:35 Intubated, sedated. - Objective Resuscitation Status: Resuscitation Status FULL:Full Resuscitation Vital Signs & Weight: Vital Signs (12 hours) Temp Pulse Resp BP Pulse Ox 12/27/17 12:32 94 12/27/17 12:00 99.3 F 96 12/27/17 10:03 104 H 131/54 L 12/27/17 10:00 22 H 12/27/17 09:00 100.0 F H 12/27/17 08:00 22 H 99 12/27/17 07:00 99.9 F H 12/27/17 06:27 102 H 111/74 12/27/17 06:00 29 H 12/27/17 04:00 25 H Weight Admit Weight 179 lb 14.355 oz Weight 2.945 oz Most Recent Monitor Data Heart Rate from ECG 95 NIBP 99/62 NIBP BP-Mean 74 Respiration from ECG 15 SpO2 97 I&O: 12/26/17 12/27/17 12/28/17 06:59 06:59 06:59 Intake Total 2854.2 2545.1 Output Total 810 620 190 Balance 2044.2 1925.1 -190 Result Diagrams: 12/27/17 04:53 12/27/17 04:53 Additional Labs: Accuchecks 12/27/17 12/27/17 12/26/17 12:10 00:50 18:17 POC Glucose 140 H 153 H 142 H Phys Exam - Physical Examination Constitutional: NAD Respiratory: no wheezing, no rales, no rhonchi Cardiovascular: RRR, no significant murmur, no rub Gastrointestinal: soft, non-tender, no distention, positive bowel sounds Musculoskeletal: no edema Dx/Plan (1) Acute on chronic respiratory failure with hypercapnia Code(s): J96.22 - ACUTE AND CHRONIC RESPIRATORY FAILURE WITH HYPERCAPNIA Status: Acute Comment: Pt is intubated, in CCU (2) Fall Code(s): W19.XXXA - UNSPECIFIED FALL, INITIAL ENCOUNTER Status: Acute Comment: resultant femoral neck fracture (3) Fracture of femoral neck, right Code(s): S72.001A - FRACTURE OF UNSP PART OF NECK OF RIGHT FEMUR, INIT Status : Acute Comment: appreciate orthopedics input. Not a surgical candidate until stable. (4) Pneumonia Code(s): J18.9 - PNEUMONIA, UNSPECIFIED ORGANISM Status: Acute Comment: continue IV antibiotics as below (5) Shock Code(s): R57.9 - SHOCK, UNSPECIFIED Status: Acute Comment: Likely septic, from pneumonia. Continue IV dopamine (6) COPD with exacerbation Code(s): J44.1 - CHRONIC OBSTRUCTIVE PULMONARY DISEASE W (ACUTE) EXACERBATION Status: Acute (7) Hypertension Code(s): I10 - ESSENTIAL (PRIMARY) HYPERTENSION Status: Chronic Comment: pt currently in shock - Plan * Continue supportive management with vent, pressors. Continue IV abx and follow up cultures. * Patient's just and is today. Will not pursue family discussions until later time.
--- NOTE | 2017-12-27 15:55 | PDOC.GSPN ---
Surgery Progress Note: Subj - Subjective Narrative: Respiratory status still too poor to hold sedation. Not answering questions or following commands. Abdomen soft and nondistended. Bowel sounds present. Breath sounds improved. Urine output marginal but 4 L positive over the past few days. Still on some Levophed for pressure. Foot with normal capillary refill. Assessment/plan: Status post ground-level fall with right intertrochanteric femur fracture and possible superior ramus fracture. No other injuries identified. Primary problem is respiratory failure and possible stroke. Neurology had recommended repeat head CT, which the hospitalist told me they were going to order. Signing off for now. Surgery Progress Note: Obj - Vital signs Vital signs: Vital Signs - Most Recent Temp Pulse Resp BP Pulse Ox 99.3 F 94 22 H 131/54 L 96 12/27/17 12:00 12/27/17 12:32 12/27/17 10:00 12/27/17 10:03 12/27/17 12:00 Surgery Progress Note: Results - Labs Result Diagrams: 12/27/17 04:53 12/27/17 04:53 Lab results: Laboratory Results - last 24 hr 12/27/17 12/27/17 12/27/17 04:53 04:53 06:10 WBC 21.4 H RBC 3.50 L Hgb 10.8 L Hct 32.9 L MCV 93.9 MCH 30.7 MCHC 32.7 RDW 14.3 Plt Count 190 MPV 7.4 Neutrophils % (Manual) 93 H Band Neuts % (Manual) 5 Lymphocytes % (Manual) 1 L Monocytes % (Manual) 1 Hypochromia SLIGHT = 6-15 cells Plt Morphology Comment Appears Adequate Specimen Type ARTERIAL Puncture Site RR Bicarbonate Actual 18.5 L ABG pH 7.38 ABG pCO2 32.1 L ABG pO2 89.4 H ABG O2 Sat Calc/Joseph 96.8 ABG O2 Content 15.5 L ABG Base Excess -5.8 L ABG Hematocrit 34.0 L ABG Hemoglobin 11.4 L ABG Oxyhemoglobin 95.9 ABG Carboxyhemoglobin 0.6 ABG Methemoglobin 0.30 Chris Test POSITIVE A-a O2 Gradient 226.975 H Ionized Calcium 1.23 Mode of Support SIMV % Minute Volume 10.6 Mechanical Rate 22 Inspired O2 50 Tidal Volume 400 Pressure Support 10 PEEP or CPAP 5.0 Sodium 139 139 Potassium 4.2 4.24 Chloride 113 H 112 H Carbon Dioxide 21 L Anion Gap 9 L BUN 29 H Creatinine 1.18 H Estimated GFR (MDRD) 45 Glucose 169 H POC Glucose Calcium 8.3 Total Bilirubin 0.3 AST 23 ALT 16 Alkaline Phosphatase 70 Serum Total Protein 5.3 L Albumin 2.9 L Globulin 2.4 Albumin/Globulin Ratio 1.2 12/27/17 12:10 WBC RBC Hgb Hct MCV MCH MCHC RDW Plt Count MPV Neutrophils % (Manual) Band Neuts % (Manual) Lymphocytes % (Manual) Monocytes % (Manual) Hypochromia Plt Morphology Comment Specimen Type Puncture Site Bicarbonate Actual ABG pH ABG pCO2 ABG pO2 ABG O2 Sat Calc/Joseph ABG O2 Content ABG Base Excess ABG Hematocrit ABG Hemoglobin ABG Oxyhemoglobin ABG Carboxyhemoglobin ABG Methemoglobin Chris Test A-a O2 Gradient Ionized Calcium Mode of Support % Minute Volume Mechanical Rate Inspired O2 Tidal Volume Pressure Support PEEP or CPAP Sodium Potassium Chloride Carbon Dioxide Anion Gap BUN Creatinine Estimated GFR (MDRD) Glucose POC Glucose 140 H Calcium Total Bilirubin AST ALT Alkaline Phosphatase Serum Total Protein Albumin Globulin Albumin/Globulin Ratio
[2017-12-27] MEDS: Sodium Chloride 0.9% 1,000 ML IV SCH (16:13)
--- NOTE | 2017-12-27 17:29 | PRG ---
DATE OF SERVICE: 12/27/2017 SUBJECTIVE: Evelyn Askew's events have been reviewed. I took the history again from her family . Apparently, she was trying to exercise in the house by ambulating up and down the stuart. Her family says that she panicked after she fell. She fractured her hip at that time. She started b reathing rapidly and called EMS. She subsequently was intubated in the emergency department. She actually is one of my COPD patients that is very meticulous about taking medications as ordered a nd very compliant. There is some history of a possible seizure, but I cannot get any history out of family suggestive of a seizure. PAST MEDICAL HISTORY: Remarkable for COPD and hypertension. FAMILY HISTORY: Negative for lung disease in early age. SOCIAL HISTORY: She is not smoking. She is not a daily drinker. ALLERGIES: She reports allergies to NEXIUM, BACITRACIN, FLAGYL, MACRODANTIN, NEOSPORIN, PENICILLIN, SULFA. REVIEW OF SYSTEMS: Not obtainable since she is intubated. We held sedation this morning. She was a wakened and moving all of her extremities to command, would nod appropriately to questions. Her expi ratory phase is not overly prolonged. OBJECTIVE: VITAL SIGNS: Blood pressure 99/62, heart rate 95, respiratory rates in the teens, oximetry 97. HEENT: Pupils react. Sclerae is anicteric. NECK: Supple. LUNGS: Clear. HEART: Regular rhythm. ABDOMEN: Soft and nontender. EXTREMITIES: No clubbing, cyanosis, or edema. LABORATORY DATA: White count 21.4, hemoglobin 10.8, platelets 190. Sodium 139, potassium is 4.2, ch loride 113, bicarbonate 21, BUN 29, creatinine 1.18, pH 7.38, CO2 32, pO2 89. Chest radiograph today showed nothing to suggest pneumonia. She may have an increase in interstitial markings. IMPRESSION: 1. Hip fracture 2. Chronic obstructive pulmonary disease exacerbation, ? panic attack which led to intubation. 3. ? seizures. PLAN: Repair her hip fracture prior to weaning from mechanical ventilation. I have discussed with [facility] rthopedic Surgery and she is on schedule.
[2017-12-28] MEDS: Lorazepam 2 MG/ML VIAL SLOW IVP PRN (02:44)
[2017-12-28] MEDS: Sodium Chloride 0.9% 1,000 ML IV SCH ×3 (04:31→22:19)
[2017-12-28 05:22] LABS: ALT (SGPT) 14 U/L (8-55); AST (SGOT) 20 U/L (5-34); Alkaline Phosphatase 59 U/L (40-150); Anion Gap 13 mmol/L (10-20); BUN (Urea Nitrogen) 38 mg/dL (9.8-20.1); Bilirubin, Total 0.2 mg/dL (0.2-1.2); Calc. Creatinine Clearance 0 mL/min (70-130); Calcium 8.4 mg/dL (7.8-10.44); Carbon Dioxide 18 mmol/L (23-31); Chloride 114 mmol/L (98-107); Estimated GFR-MDRD 43; Globulin 2.3 g/dL (2.4-3.5); Glucose 162 mg/dL (80-115); Potassium 4.4 mmol/L (3.5-5.1); Protein, Total 5.3 g/dL (6.0-8.3); Sodium 141 mmol/L (136-145)
[2017-12-28 05:30] LABS: Band 7 % (5-11); Hemoglobin 9.7 g/dL (12.0-16.0); Lymphocytes 9 % (21-51); MDiff Complete? YES; Mean Corpuscular HGB CONC 31.5 g/dL (32.0-36.0); Mean Corpuscular Hemoglobin 30.2 pg (27.0-31.0); Mean Corpuscular Volume 95.8 fL (78.0-98.0); Mean Platelet Volume 8.1 fL (7.4-10.4); Monocytes 6 % (0-10); Neutrophil 78 % (42-75); PLT Morphology Comment Appears Adequate; Platelet Count 153 thou/uL (130-400); RBC Distribution Width 14.6 % (11.5-14.5); RBC Morphology Normal; Red Blood Cell (RBC) Count 3.22 mill/uL (4.20-5.40); White Blood Cell (WBC) Count 15.7 thou/uL (4.8-10.8)
[2017-12-28 06:24] LABS: Actual Bicarbonate (HCO3a) 19.3 mEq/L (22-28); Base Excess (BEa) -6.6 mEq/L (-2.0 to +3.0); Calcium, Ionized 1.26 mmol/L (1.12-1.30); Carboxyhemoglobin (COHb) 0.5 gm% (0.0-3.0); Hemoglobin (Hb) 10.2 g/dL (12.0-16.0); O2 Tension (PaO2) 130.5 mmHg (> 80.0); Potassium - ABG Lab 4.54 mmol/L (3.70-5.30)
[2017-12-28 06:27] LABS: Puncture Site RRA
[2017-12-28] MEDS: Enoxaparin Sodium 40 MG/0.4 ML SYRINGE SC SCH (08:24)
[2017-12-28] MEDS: Famotidine/PF 20 mg/2ml Vial SLOW IVP SCH ×2 (08:25→21:01)
[2017-12-28] MEDS ORDERED: Fentanyl 100 MCG/2 ML VIAL ONE (10:11)
--- NOTE | 2017-12-28 11:46 | RAD ---
PORTABLE CHEST: HISTORY: Respiratory distress. COMPARISON: Prior day's exam. FINDINGS: Endotracheal tube is in satisfactory position. Right jugular line is unchanged in position. Severe chronic lung changes are seen. Parenchymal density in the left base is stable. IMPRESSION: Stable exam. POS: [facility]
[2017-12-28] MEDS: Cefepime 1 GM in Sodium Chloride 0.9% 100 ML IVPB SCH (11:52)
[2017-12-28 12:28] LABS: Actual Bicarbonate (HCO3a) 18.9 mEq/L (22-28); Base Excess (BEa) -7.7 mEq/L (-2.0 to +3.0); Calcium, Ionized 1.25 mmol/L (1.12-1.30); Carboxyhemoglobin (COHb) 1.7 gm% (0.0-3.0); Hemoglobin (Hb) 9.7 g/dL (12.0-16.0); Potassium - ABG Lab 4.42 mmol/L (3.70-5.30); pH, Arterial 7.26 (7.35-7.45)
[2017-12-28 12:42] LABS: Puncture Site RRA
--- NOTE | 2017-12-28 12:49 | PDOC.PN ---
- Subjective Encounter Start Date: 12/28/17 Encounter Start Time: 09:30 -: non-verbal - Objective Resuscitation Status: Resuscitation Status FULL:Full Resuscitation Vital Signs & Weight: Vital Signs (12 hours) Pulse Resp BP Pulse Ox 12/28/17 11:15 96 156/70 H 12/28/17 09:07 94 29 H 95 12/28/17 08:00 22 H 97 12/28/17 06:12 96 106/51 L 12/28/17 06:08 96 22 H 99 12/28/17 02:58 100 Weight Admit Weight 179 lb 14.355 oz Weight 185 lb 3.013 oz Most Recent Monitor Data Heart Rate from ECG 99 NIBP 111/61 NIBP BP-Mean 77 Respiration from ECG 22 SpO2 97 I&O: 12/27/17 12/28/17 12/29/17 06:59 06:59 05:59 Intake Total 2545.1 1913.9 0 Output Total 620 435 110 Balance 1925.1 1478.9 -110 Result Diagrams: 12/28/17 04:41 12/28/17 04:41 Additional Labs: Accuchecks 12/28/17 12/28/17 12/27/17 11:59 04:40 18:46 POC Glucose 152 H 153 H 124 H Phys Exam - Physical Examination Constitutional: NAD Intubated Prolonged exp phase with tight airway and wheezes. Cardiovascular: RRR, no significant murmur Gastrointestinal: soft, no distention, positive bowel sounds Musculoskeletal: no edema Dx/Plan (1) Septic shock Code(s): A41.9 - SEPSIS, UNSPECIFIED ORGANISM; R65.21 - SEVERE SEPSIS WITH SEPTIC SHOCK Status: Acute Comment: Jailey pneumonia source. On pressors, broad abx. (2) Acute on chronic respiratory failure with hypercapnia Code(s): J96.22 - ACUTE AND CHRONIC RESPIRATORY FAILURE WITH HYPERCAPNIA Status: Acute Comment: Pt is intubated, in CCU. Hx of COPD with extensive chronic changes and LLL infiltrate on x-ray. Dr. Rodrigues believes there was a component of panic attack leading to the intubation. (3) Pneumonia Code(s): J18.9 - PNEUMONIA, UNSPECIFIED ORGANISM Status: Acute Comment: Cefepime, Levaquin (4) Fall Code(s): W19.XXXA - UNSPECIFIED FALL, INITIAL ENCOUNTER Status: Acute Comment: resultant femoral neck fracture (5) Fracture of femoral neck, right Code(s): S72.001A - FRACTURE OF UNSP PART OF NECK OF RIGHT FEMUR, INIT Status : Acute Comment: appreciate orthopedics input. Went to surg this morning. Pulm recommended surg prior to attempts at weaning. (6) Shock Code(s): R57.9 - SHOCK, UNSPECIFIED Status: Acute Comment: Likely septic, from pneumonia. Continue IV dopamine (7) COPD with exacerbation Code(s): J44.1 - CHRONIC OBSTRUCTIVE PULMONARY DISEASE W (ACUTE) EXACERBATION Status: Acute Comment: Steroids, nebs. (8) Hypertension Code(s): I10 - ESSENTIAL (PRIMARY) HYPERTENSION Status: Chronic Comment: Meds held. On pressors. - Plan * ORIF hip fx. * Continue abx. * Continue supportive vent, pressor care. Wean a possible per Pulm.
--- NOTE | 2017-12-28 16:34 | RAD ---
TWO VIEWS RIGHT HIP: 12/28/17 HISTORY: Status post surgery. AP and lateral views right hip obtained. Comparison made to previous exam from 12/25/17. Two views right hip demonstrates a right hip arthroplasty. This is a porous type unipolar arthroplast y. Femoral and acetabular components are in good position. No evidence of fractures or loosening seen . IMPRESSION: Status post right hip arthroplasty. POS: [facility]
--- NOTE | 2017-12-28 16:36 | RAD ---
AP VIEW PELVIS: 12/28/17 HISTORY: Trauma. Hip fracture. AP view pelvis is obtained on 12/28/17. Comparison made to previous exam from 12/25/17. AP view pelvis again demonstrates a right hip arthroplasty. There is a radiopaque catheter seen over the pelvis. The pelvis is unremarkable. No evidence of pelvic fractures or bony lesions seen. IMPRESSION: Right hip arthroplasty changes. No acute pelvic pathology seen. POS: [facility]
--- NOTE | 2017-12-28 19:21 | PRG ---
DATE OF SERVICE: 12/28/2017 SUBJECTIVE: Evelyn Askew had her hip repaired this morning. She was transferred back up to the ICU. PHYSICAL EXAMINATION: VITAL SIGNS: Blood pressure this afternoon is 108/52, heart rate 71, respiratory rate is 15. She transiently required pressors overnight, but this morning was hydrated and is off pressors. LUNGS: Clear. HEART: Regular rhythm. ABDOMEN: Soft. LABORATORY DATA: White count 15.7, hemoglobin 9.7, platelets 153. Sodium 141, potassium 4.4, chloride 114, bicarbonate 18, BUN 38, creatinine 1.24. PH of 7.36, CO2 of 43, pO2 59. Ventilator has been adjusted. IMPRESSION: 1. Status post surgical repair of hip fracture. 2. Chronic obstructive pulmonary disease exacerbation combined with a panic attack. I do not believe that she has pneumonia at this time, so we will simplify antibioticsand discontinue cefepime. We will decrease her steroid dosing. Hopefully, we can gradually let her wake up and wean her in 24-48 hours. Critical care time was 30 minutes. MTDD
--- NOTE | 2017-12-28 19:30 | OP ---
DATE OF PROCEDURE: 12/28/2017 PREOPERATIVE DIAGNOSIS: Right femoral neck fracture. POSTOPERATIVE DIAGNOSIS: Right femoral neck fracture. SURGICAL PROCEDURE: Right hip hemiarthroplasty. ANESTHESIA: General. SURGEON: Isaak Castellanos M.D. WAITER/WAITRESS BAR: Shady Berry PA-C. IMPLANTS: DePuy [place] size 4 stem with a 28 mm x 47 mm bipolar cup and a 28 plus 5 Articul/Lalit femo ral head. BLOOD LOSS: 200 mL COMPLICATIONS: None. DRAINS: None. SPECIMEN: Femoral head discarded. OUTCOME: Stable hip hemiarthroplasty. INDICATIONS: The patient is a 67-year-old lady who has a past medical history of hypertension, asthm a and COPD. She sustained a fall at home on 12/25/2017 with an unknown mechanism. The patient by re port was having some difficulty breathing prior to her fall. She was complaining of some right hip p ain by report. Upon presentation to the emergency room, she was found to be in respiratory failure a nd was subsequently intubated and has been cared for in the Intensive Care Unit. Workup did show a r ight femoral neck fracture. The patient has now stabilized and is no longer requiring pressors and enrique ramos would like to begin weaning from the ventilator. As such, we are now going to proceed with right hip hemiarthroplasty in hopes of getting her off the ventilator and not having to reintubate for jayce gical procedure. Informed consent has been obtained from her daughter. PROCEDURE IN DETAIL: The patient was brought to the operating room and a timeout performed followed by induction of general anesthesia. The patient was placed in a left lateral decubitus position and then a sterile prep and drape was performed of the right lower extremity. Next, a curvilinear incisi on was made centered over the greater trochanter. After skin was sharply incised, dissection was car ried down to the underlying tensor fascia and fascia carlyn. This structure was incised in line with t he skin incision, reflected anteriorly and posteriorly and held in place with a Charnley retractor. The trochanteric bursa was swept off the short external rotators and then an elevator was passed unde r the abductors. At this point, the tendon of the piriformis, superior and inferior gemelli and obtu rator internus could clearly be visualized. These were released from the posterior aspect of the fem ur and reflected posteriorly to protect the sciatic nerve. Next, a T capsulotomy was performed and t he fracture clearly visualized. A T handle corkscrew device was used to remove the femoral head and then an oscillating saw was used to make a femoral neck cut. This cut was quite distal given a dista l fracture extension. Once performed, the proximal femur was further prepared first using a box chis el and then a T handle awl to gain access to the intramedullary canal. A lateralizing reamer was the n used followed by sinus sequential T handle awls up to a size 4 to 5 giving excellent cortical fit. Broaching was started at size 2 and continued up to size 4 that gave good proximal fit. The size 4 broach was left in place and an open reduction was performed with a trial bipolar head with a +5 neck component. This resulted in a very stable hemiarthroplasty with what appeared to be muslim of normal leg lengths. As such, the trial components were all removed from the hip and then the hip irr igated with 3 liters of normal saline using Pulsavac. Next, the femoral stem was inserted in standar d fashion followed by application of a bipolar head to the stem. The hip again reduced and again fou nd to have excellent stability. Further irrigation was performed and then wound closure performed. Number 2 Vicryl was used to close the joint capsule followed by number 2 Vicryl to reattach the short external rotators to the posterior femur. Number 2 Vicryl was also used for the tensor fascia and f ascia carlyn closure, 0 Vicryl was used for Diego's fascia followed by 2-0 Vicryl and then chuck for the skin. A Xeroform gauze and tape dressing was applied to the thigh and then the patient was brou ght back to the Intensive Care Unit still ventilated. There were no complications. She tolerated th e procedure well.
[2017-12-28] MEDS: HumaLOG 300 UNITS/3 ML VIAL SC PRN (22:26)
[2017-12-29 05:06] LABS: Hemoglobin 7.7 g/dL (12.0-16.0); Hypochromia SLIGHT = 6-15 cells (100X) (0-5/hpf); Lymphocytes 2 % (21-51); MDiff Complete? YES; Mean Corpuscular HGB CONC 32.4 g/dL (32.0-36.0); Mean Corpuscular Hemoglobin 30.9 pg (27.0-31.0); Mean Corpuscular Volume 95.1 fL (78.0-98.0); Mean Platelet Volume 8.6 fL (7.4-10.4); Monocytes 1 % (0-10); Neutrophil 97 % (42-75); PLT Morphology Comment Appears Decreased; Platelet Count 111 thou/uL (130-400); RBC Distribution Width 14.6 % (11.5-14.5); Red Blood Cell (RBC) Count 2.49 mill/uL (4.20-5.40); White Blood Cell (WBC) Count 9.5 thou/uL (4.8-10.8)
[2017-12-29 05:12] LABS: ALT (SGPT) 17 U/L (8-55); AST (SGOT) 26 U/L (5-34); Albumin 2.6 g/dL (3.4-4.8); Alkaline Phosphatase 58 U/L (40-150); Anion Gap 10 mmol/L (10-20); BUN (Urea Nitrogen) 39 mg/dL (9.8-20.1); Bilirubin, Total Less than 0.2 mg/dL (0.2-1.2); Calc. Creatinine Clearance 82 mL/min (70-130); Calcium 8.2 mg/dL (7.8-10.44); Carbon Dioxide 20 mmol/L (23-31); Chloride 119 mmol/L (98-107); Estimated GFR-MDRD 65; Globulin 2.1 g/dL (2.4-3.5); Glucose 148 mg/dL (80-115); Potassium 4.5 mmol/L (3.5-5.1); Protein, Total 4.7 g/dL (6.0-8.3); Sodium 144 mmol/L (136-145)
[2017-12-29 09:10] LABS: Actual Bicarbonate (HCO3a) 20.5 mEq/L (22-28); Base Excess (BEa) -4.6 mEq/L (-2.0 to +3.0); CO2 Tension 37.9 mmHg (35.0-45.0); Calcium, Ionized 1.24 mmol/L (1.12-1.30); Carboxyhemoglobin (COHb) 1.5 gm% (0.0-3.0); Hemoglobin (Hb) 8.5 g/dL (12.0-16.0); O2 Tension (PaO2) 101.7 mmHg (> 80.0); Potassium - ABG Lab 4.51 mmol/L (3.70-5.30); pH, Arterial 7.35 (7.35-7.45)
[2017-12-29] MEDS: Morphine 4 MG/ML VIAL SLOW IVP PRN (09:22)
[2017-12-29] MEDS: Lorazepam 2 MG/ML VIAL SLOW IVP PRN (09:23)
[2017-12-29] MEDS: Famotidine/PF 20 mg/2ml Vial SLOW IVP SCH ×2 (09:23→19:28)
[2017-12-29] MEDS: Enoxaparin Sodium 40 MG/0.4 ML SYRINGE SC SCH (09:28)
[2017-12-29] MEDS: Propofol 1,000 MG/100 ML VIAL IV PRN (09:31)
[2017-12-29 09:41] LABS: ALV-art Gradient 207.425 (0-20); Puncture Site RRA
--- NOTE | 2017-12-29 10:35 | RAD ---
PORTABLE CHEST: HISTORY: Respiratory distress. COMPARISON: Prior day's exam. FINDINGS: Endotracheal tube and right-sided central line are unchanged in position. Chronic-appearing lung juan nges are again noted. NG tube is seen below the hemidiaphragm. No definite interval change since th e previous study. IMPRESSION: Essentially stable exam. POS: [facility]
--- NOTE | 2017-12-29 12:50 | PDOC.PN ---
- Subjective Encounter Start Date: 12/29/17 Encounter Start Time: 11:25 -: non-verbal - Objective Resuscitation Status: Resuscitation Status FULL:Full Resuscitation Vital Signs & Weight: Vital Signs (12 hours) Temp Pulse Pulse Pulse Pulse Resp BP 12/29/17 12:00 26 H 12/29/17 11:11 101 H 111/50 L 12/29/17 11:10 103 H 26 H 12/29/17 10:00 26 H 12/29/17 09:17 99.7 F H 105 H 26 H 12/29/17 09:03 104 H 105 H 12/29/17 07:53 12/29/17 07:52 26 H 12/29/17 07:40 95 124/58 L 12/29/17 07:38 94 26 H 12/29/17 06:00 26 H 12/29/17 04:00 26 H 12/29/17 02:50 102 H 12/29/17 02:49 102 H 24 H 12/29/17 02:00 28 H BP BP BP Pulse Ox Pulse Ox Pulse Ox 12/29/17 12:00 12/29/17 11:11 12/29/17 11:10 95 12/29/17 10:00 12/29/17 09:17 135/62 99 12/29/17 09:03 135/62 117/50 L 96 95 12/29/17 07:53 100 12/29/17 07:52 12/29/17 07:40 12/29/17 07:38 100 12/29/17 06:00 12/29/17 04:00 12/29/17 02:50 12/29/17 02:49 97 12/29/17 02:00 Weight Admit Weight 179 lb 14.355 oz Weight 192 lb 0.362 oz Most Recent Monitor Data Heart Rate from ECG 100 NIBP 108/56 NIBP BP-Mean 73 Respiration from ECG 30 SpO2 99 I&O: 12/28/17 12/29/17 12/30/17 07:59 06:59 06:59 Intake Total 600 Output Total 390 Balance 210 Result Diagrams: 12/29/17 04:15 12/29/17 04:15 Additional Labs: Accuchecks 12/29/17 12/28/17 12/28/17 11:41 22:25 18:13 POC Glucose 146 H 161 H 130 H Radiology Reviewed by me: Yes Phys Exam - Physical Examination Constitutional: NAD Intubated Respiratory: no rales, no rhonchi Still has some prolonged exp phase and sounds tight. Cardiovascular: RRR, no significant murmur Gastrointestinal: soft, non-tender, no distention, positive bowel sounds Bilateral UE Edema and some ecchymosis. Dx/Plan (1) Septic shock Code(s): A41.9 - SEPSIS, UNSPECIFIED ORGANISM; R65.21 - SEVERE SEPSIS WITH SEPTIC SHOCK Status: Acute Comment: Likley pneumonia source. BP improved. (2) Acute on chronic respiratory failure with hypercapnia Code(s): J96.22 - ACUTE AND CHRONIC RESPIRATORY FAILURE WITH HYPERCAPNIA Status: Acute Comment: Pt is intubated, in CCU. Hx of COPD with extensive chronic changes and LLL infiltrate on x-ray. Continue vent support, bronchodilators and wean as possible. (3) Pneumonia Code(s): J18.9 - PNEUMONIA, UNSPECIFIED ORGANISM Status: Acute Comment: Miloaquin (4) Fall Code(s): W19.XXXA - UNSPECIFIED FALL, INITIAL ENCOUNTER Status: Acute Comment: resultant femoral neck fracture (5) Fracture of femoral neck, right Code(s): S72.001A - FRACTURE OF UNSP PART OF NECK OF RIGHT FEMUR, INIT Status : Acute Comment: Post-op hemiarthoplasty. (6) COPD with exacerbation Code(s): J44.1 - CHRONIC OBSTRUCTIVE PULMONARY DISEASE W (ACUTE) EXACERBATION Status: Acute Comment: Steroids, nebs. (7) Hypertension Code(s): I10 - ESSENTIAL (PRIMARY) HYPERTENSION Status: Chronic Comment: Meds held. - Plan * Blood today. * Wean vent as possible. * Continue Abx for pneumonia.
[2017-12-29] MEDS: HumaLOG 300 UNITS/3 ML VIAL SC PRN (17:57)
--- NOTE | 2017-12-29 18:04 | PRG ---
DATE OF SERVICE: 12/29/2017 SUBJECTIVE: Evelyn Askew's ventilator mechanics are not as good today. She has a longer expiratory phase. OBJECTIVE: VITAL SIGNS: Heart rate is 90, respiratory rate is in the mid 20s, oximetry is 100%, blood pressure 107/54. Intake and output was positive 3. LUNGS: Remarkable for faint wheezes. HEART: Regular rhythm. ABDOMEN: Soft. LABORATORY DATA: White count 9.5, hemoglobin 7.7, platelets 111,000. She will receive a unit of packed cells today. Sodium 144, potassium 4.5, chloride 119, bicarb 20, BUN 39, creatinine 0.86. Chest radiograph is essentially unchanged. IMPRESSION: Chronic obstructive pulmonary disease with bronchospasm postoperatively after repair of a hip fracture. PLAN: Continue mechanical ventilation, nebulizer treatments. Added steroids today. Hopefully, we will see gradual improvement and we can get her extubated in 24 to 48 hours. Critical care time, 30 minutes. MTDD
[2017-12-29] MEDS: Sodium Chloride 0.9% 1,000 ML IV SCH (21:22)
[2017-12-30] MEDS: Propofol 1,000 MG/100 ML VIAL IV PRN ×3 (00:33→22:20)
[2017-12-30] MEDS: Sodium Chloride 0.9% 1,000 ML IV SCH (00:33)
[2017-12-30 04:42] LABS: Band 8 % (5-11); Hemoglobin 9.6 g/dL (12.0-16.0); Lymphocytes 6 % (21-51); MDiff Complete? YES; Mean Corpuscular HGB CONC 32.5 g/dL (32.0-36.0); Mean Corpuscular Hemoglobin 30.9 pg (27.0-31.0); Mean Corpuscular Volume 95.3 fL (78.0-98.0); Mean Platelet Volume 8.6 fL (7.4-10.4); Monocytes 7 % (0-10); Neutrophil 79 % (42-75); PLT Morphology Comment Appears Decreased; Platelet Count 121 thou/uL (130-400); RBC Distribution Width 14.3 % (11.5-14.5); Red Blood Cell (RBC) Count 3.09 mill/uL (4.20-5.40); White Blood Cell (WBC) Count 12.4 thou/uL (4.8-10.8)
[2017-12-30 05:27] LABS: ALT (SGPT) 20 U/L (8-55); AST (SGOT) 26 U/L (5-34); Albumin 2.8 g/dL (3.4-4.8); Alkaline Phosphatase 66 U/L (40-150); Anion Gap 9 mmol/L (10-20); BUN (Urea Nitrogen) 38 mg/dL (9.8-20.1); Bilirubin, Total 0.4 mg/dL (0.2-1.2); Calc. Creatinine Clearance 92 mL/min (70-130); Calcium 8.4 mg/dL (7.8-10.44); Carbon Dioxide 23 mmol/L (23-31); Chloride 118 mmol/L (98-107); Estimated GFR-MDRD 72; Globulin 2.4 g/dL (2.4-3.5); Glucose 193 mg/dL (80-115); Potassium 4.7 mmol/L (3.5-5.1); Protein, Total 5.2 g/dL (6.0-8.3); Sodium 145 mmol/L (136-145)
[2017-12-30 06:35] LABS: Actual Bicarbonate (HCO3a) 21.6 mEq/L (22-28); Base Excess (BEa) -3.2 mEq/L (-2.0 to +3.0); CO2 Tension 37.6 mmHg (35.0-45.0); Calcium, Ionized 1.24 mmol/L (1.12-1.30); Carboxyhemoglobin (COHb) 0.2 gm% (0.0-3.0); Hemoglobin (Hb) 9.4 g/dL (12.0-16.0); O2 Tension (PaO2) 82.1 mmHg (> 80.0); Potassium - ABG Lab 4.61 mmol/L (3.70-5.30); pH, Arterial 7.38 (7.35-7.45)
[2017-12-30 06:39] LABS: Puncture Site RR
--- NOTE | 2017-12-30 07:39 | PRG ---
DATE OF SERVICE: 12/30/2017 OBJECTIVE: VITAL SIGNS: Ms. Patiños heart rate is 111, blood pressure 132/56, respiratory rate was per mecha nical ventilation which was set at 26. LUNGS: This morning, her lungs were distant and clear. Expiratory phase is shorter today. HEART: Regular rhythm. ABDOMEN: Soft. LABORATORY DATA: White count 12.4, hemoglobin 9.6, platelets 121. Sodium 145, potassium is 4.7, chloride 118, bicarb 23, BUN 38, creatinine 0.79. IMAGING: Chest radiograph shows no infiltrates. IMPRESSION: 1. Chronic obstructive pulmonary disease. 2. Panic attack with COPD leading to intubation. 3. Status post repair of a hip fracture. 4. Hyperchloremia. PLAN: We will adjust her fluids. We will decrease her ventilatory rate. I do not think she is a ca ndidate for extubation, but we will continue to try to progress fairly aggressively every day towards a spontaneous breathing trial within the next 24-48 hours. Critical care time was 30 minutes.
[2017-12-30] MEDS: Famotidine/PF 20 mg/2ml Vial SLOW IVP SCH ×2 (08:08→21:31)
--- NOTE | 2017-12-30 09:25 | RAD ---
CHEST ONE VIEW: History: Dyspnea. Intubated. Follow up. Comparison: 12-29-17 FINDINGS: Cardiac silhouette is magnified by projection. Pulmonary vasculature remains slightly engorged. Media stinum is midline. Lines and tubes appear unchanged in position. Bibasilar infiltrates appear stable. No evidence of pneumothorax. IMPRESSION: Mild bibasilar infiltrates and other findings are stable. POS: [facility]
[2017-12-30] MEDS: HumaLOG 300 UNITS/3 ML VIAL SC PRN ×2 (12:20→16:14)
[2017-12-30] MEDS: Lorazepam 2 MG/ML VIAL SLOW IVP PRN (14:07)
[2017-12-30] MEDS: Enoxaparin Sodium 40 MG/0.4 ML SYRINGE SC SCH (14:08)
[2017-12-30] MEDS: Morphine 4 MG/ML VIAL SLOW IVP PRN ×2 (16:10→22:28)
[2017-12-30] MEDS: Sodium Chloride 0.45% 1,000 ML IV SCH (18:28)
--- NOTE | 2017-12-30 18:57 | RAD ---
RIGHT HAND TWO VIEWS: INDICATIONS: History of fall with edema. COMPARISON: None. FINDINGS: There is prominently soft tissue swelling of the dorsal aspect of the hand, as well as the wrist. Th ere is chondrocalcinosis present within the radial carpal joint. No definite displaced fracture is e vident. There is scattered osteoarthrosis of the right hand. IMPRESSION: 1. No definite acute osseous abnormality. 2. Extensive soft tissue edema of the right wrist and hand. POS: [facility]
--- NOTE | 2017-12-30 21:23 | PDOC.PN ---
- Subjective Encounter Start Date: 12/30/17 Encounter Start Time: 10:15 Intubated. - Objective Resuscitation Status: Resuscitation Status FULL:Full Resuscitation Vital Signs & Weight: Vital Signs (12 hours) Temp Pulse Pulse Pulse Resp BP BP 12/30/17 20:00 98.6 F 12/30/17 18:49 90 99/64 12/30/17 18:47 90 30 H 12/30/17 18:00 28 H 12/30/17 16:00 30 H 12/30/17 14:38 115 H 104 H 162/70 H 12/30/17 14:30 106 H 12/30/17 14:00 27 H 12/30/17 12:48 110 H 124/59 L 12/30/17 12:00 27 H 12/30/17 10:52 109 H 111 H 155/73 H 12/30/17 10:41 103 H 137/64 12/30/17 10:39 103 H 28 H 12/30/17 10:00 29 H BP Pulse Ox Pulse Ox Pulse Ox 12/30/17 20:00 12/30/17 18:49 12/30/17 18:47 97 12/30/17 18:00 12/30/17 16:00 12/30/17 14:38 103/58 L 94 L 95 12/30/17 14:30 12/30/17 14:00 12/30/17 12:48 12/30/17 12:00 12/30/17 10:52 181/80 H 93 L 93 L 12/30/17 10:41 12/30/17 10:39 98 12/30/17 10:00 Weight Admit Weight 179 lb 14.355 oz Weight 196 lb 7.615 oz Most Recent Monitor Data Heart Rate from ECG 87 NIBP 89/44 NIBP BP-Mean 59 Respiration from ECG 26 SpO2 97 I&O: 12/29/17 12/30/17 12/31/17 06:59 06:59 06:59 Intake Total 2728.3 1318.5 Output Total 1600 1200 Balance 1128.3 118.5 Result Diagrams: 12/30/17 04:20 12/30/17 04:20 Additional Labs: Accuchecks 12/30/17 12/30/17 12/30/17 16:14 12:20 06:22 POC Glucose 161 H 189 H 147 H 12/30/17 00:11 POC Glucose 130 H Phys Exam - Physical Examination Constitutional: NAD Intubated, sedated. Still has some bronchospastic breath sounds. Cardiovascular: RRR, no significant murmur Gastrointestinal: soft, non-tender, no distention Edema of UE's. Ecchymosis and skin tear of right forearm. Neurological: non-focal Dx/Plan (1) Septic shock Code(s): A41.9 - SEPSIS, UNSPECIFIED ORGANISM; R65.21 - SEVERE SEPSIS WITH SEPTIC SHOCK Status: Resolved (2) Acute on chronic respiratory failure with hypercapnia Code(s): J96.22 - ACUTE AND CHRONIC RESPIRATORY FAILURE WITH HYPERCAPNIA Status: Acute Comment: Pt is intubated, in CCU. Hx of COPD with extensive chronic changes. Continue vent support, bronchodilators, steroids and wean as possible. (3) Pneumonia Code(s): J18.9 - PNEUMONIA, UNSPECIFIED ORGANISM Status: Resolved Comment: Hemantuin (4) Fall Code(s): W19.XXXA - UNSPECIFIED FALL, INITIAL ENCOUNTER Status: Acute Comment: resultant femoral neck fracture (5) Fracture of femoral neck, right Code(s): S72.001A - FRACTURE OF UNSP PART OF NECK OF RIGHT FEMUR, INIT Status : Acute Comment: Post-op hemiarthoplasty. (6) COPD with exacerbation Code(s): J44.1 - CHRONIC OBSTRUCTIVE PULMONARY DISEASE W (ACUTE) EXACERBATION Status: Acute Comment: Steroids, nebs. (7) Hypertension Code(s): I10 - ESSENTIAL (PRIMARY) HYPERTENSION Status: Chronic Comment: Meds held. - Plan * Pulmonary following. Weaning as tolerated. * Long conversation with patient daughter Lucy. She is very concerned about the edema of the UE's. Worried that they will rupture. I explained that the fluid is from trauma related to the fall she had, fluid resuscitation, immobility and possibly the steroids. It doesn't look good, but it is not dangerous. She did have a number of x-rays when she presented, but the RUE was not imaged. I will get that done now. * She is also concerned because she was told that her mother had a seizure causing the fall. She is convinced that is not the case. I explained that we don't know what happened a the time of the fall, but we have not been in the mindset that she had a seizure. * She is concerned that the hip surgery wound be checked for "infection that we can't see." I explained that she is still on antibiotics and the wound is being routinely checked. * I also reviewed all of the medications that we have on. * All of her questions were answered.
[2017-12-31 04:51] LABS: ALT (SGPT) 23 U/L (8-55); AST (SGOT) 23 U/L (5-34); Albumin 2.6 g/dL (3.4-4.8); Alkaline Phosphatase 64 U/L (40-150); Anion Gap 5 mmol/L (10-20); BUN (Urea Nitrogen) 38 mg/dL (9.8-20.1); Bilirubin, Total 0.3 mg/dL (0.2-1.2); Calc. Creatinine Clearance 115 mL/min (70-130); Calcium 8.5 mg/dL (7.8-10.44); Carbon Dioxide 27 mmol/L (23-31); Chloride 115 mmol/L (98-107); Estimated GFR-MDRD 90; Globulin 2.2 g/dL (2.4-3.5); Glucose 171 mg/dL (80-115); Potassium 4.4 mmol/L (3.5-5.1); Protein, Total 4.8 g/dL (6.0-8.3); Sodium 143 mmol/L (136-145)
[2017-12-31 05:02] LABS: Band 1 % (5-11); Hemoglobin 8.5 g/dL (12.0-16.0); Hypochromia SLIGHT = 6-15 cells (100X) (0-5/hpf); Lymphocytes 6 % (21-51); MDiff Complete? YES; Mean Corpuscular HGB CONC 31.9 g/dL (32.0-36.0); Mean Corpuscular Hemoglobin 30.5 pg (27.0-31.0); Mean Corpuscular Volume 95.6 fL (78.0-98.0); Mean Platelet Volume 8.5 fL (7.4-10.4); Monocytes 7 % (0-10); Neutrophil 86 % (42-75); PLT Morphology Comment Appears Decreased; Platelet Count 108 thou/uL (130-400); RBC Distribution Width 14.1 % (11.5-14.5); Red Blood Cell (RBC) Count 2.77 mill/uL (4.20-5.40); White Blood Cell (WBC) Count 10.1 thou/uL (4.8-10.8)
[2017-12-31 07:09] LABS: Actual Bicarbonate (HCO3a) 24.2 mEq/L (22-28); Base Excess (BEa) -0.4 mEq/L (-2.0 to +3.0); CO2 Tension 38.9 mmHg (35.0-45.0); Calcium, Ionized 1.24 mmol/L (1.12-1.30); Carboxyhemoglobin (COHb) 1.7 gm% (0.0-3.0); Hemoglobin (Hb) 8.6 g/dL (12.0-16.0); O2 Tension (PaO2) 80.5 mmHg (> 80.0); Potassium - ABG Lab 4.42 mmol/L (3.70-5.30); pH, Arterial 7.41 (7.35-7.45)
[2017-12-31 07:14] LABS: ALV-art Gradient 156.075 (0-20); Puncture Site LR
[2017-12-31] MEDS: Propofol 1,000 MG/100 ML VIAL IV PRN ×2 (07:43→16:41)
[2017-12-31] MEDS: Famotidine/PF 20 mg/2ml Vial SLOW IVP SCH ×2 (07:45→21:19)
[2017-12-31] MEDS: Enoxaparin Sodium 40 MG/0.4 ML SYRINGE SC SCH (07:46)
[2017-12-31] MEDS: Sodium Chloride 0.45% 1,000 ML IV SCH ×3 (07:46→13:30)
--- NOTE | 2017-12-31 09:07 | RAD ---
RIGHT WRIST 2 VIEWS: Date: 12/31/17 PROVIDED CLINICAL HISTORY: Right wrist pain status post injury. FINDINGS: There is no evidence for fracture or other acute osseous abnormality. If there is persistent clinical concern, conservative management and follow-up imaging are advised. IMPRESSION: As above. POS: OFF
--- NOTE | 2017-12-31 09:25 | RAD ---
RIGHT HAND 3 VIEWS: Date: 12/31/17 PROVIDED CLINICAL HISTORY: Fall with edema. FINDINGS: Comparison made with the study dated 12/30/17. There is conspicuity of the soft tissues of the dorsum of the hand, similar to the prior study. There is no evidence for fracture or other acute osseous abnormality. Alignment appears anatomic. Joint sp aces appear preserved. IMPRESSION: Prominent dorsal soft tissue swelling without evidence for fracture. If there is persistent clinical concern, conservative management and follow-up imaging are advised. POS: OFF
--- NOTE | 2017-12-31 09:44 | RAD ---
CHEST 1 VIEW: Date: 12/31/17 HISTORY: Dyspnea. Follow-up. COMPARISON: 12/30/17. FINDINGS: Cardiac silhouette is magnified by projection. Pulmonary vasculature remains slightly engorged. Patie nt is slightly rotated rightward. Lines and tubes appear unchanged in position. Bibasilar infiltrates and left pleural fluid appear stable. Right lateral costophrenic angle is excluded from the image. N o evidence of pneumothorax. IMPRESSION: Bibasilar infiltrates and other findings are stable. POS: C
[2017-12-31] MEDS: Morphine 4 MG/ML VIAL SLOW IVP PRN ×2 (14:38→21:19)
[2017-12-31] MEDS ORDERED: Furosemide 40 MG/4 ML VIAL IVP SCH (15:28)
--- NOTE | 2017-12-31 16:20 | PDOC.PN ---
- Subjective Encounter Start Date: 12/31/17 Encounter Start Time: 13:20 Intubated. - Objective Resuscitation Status: Resuscitation Status FULL:Full Resuscitation Vital Signs & Weight: Vital Signs (12 hours) Pulse Resp BP Pulse Ox 12/31/17 16:00 20 12/31/17 15:06 93 124/58 L 12/31/17 14:00 20 12/31/17 12:37 95 127/65 12/31/17 12:00 22 H 12/31/17 10:00 94 22 H 113/58 L 12/31/17 08:00 23 H 98 12/31/17 07:37 94 115/50 L 12/31/17 06:00 26 H Weight Admit Weight 179 lb 14.355 oz Weight 196 lb 3.382 oz Most Recent Monitor Data Heart Rate from ECG 98 NIBP 148/68 NIBP BP-Mean 94 Respiration from ECG 21 SpO2 98 I&O: 12/30/17 12/31/17 01/01/18 06:59 06:59 06:59 Intake Total 2728.3 2594.5 Output Total 1600 1705 540 Balance 1128.3 889.5 -540 Result Diagrams: 12/31/17 04:20 12/31/17 04:20 Additional Labs: Accuchecks 12/31/17 12/31/17 12/31/17 12:40 04:21 00:09 POC Glucose 181 H 162 H 144 H 12/30/17 16:14 POC Glucose 161 H Phys Exam - Physical Examination Constitutional: NAD Intubated. Respiratory: no wheezing, no rales, no rhonchi, clear to auscultation bilateral Cardiovascular: RRR, no significant murmur Occ. ectopy. Gastrointestinal: soft, no distention, positive bowel sounds Edema of UE's appears to be slightly better today. Dx/Plan (1) Septic shock Code(s): A41.9 - SEPSIS, UNSPECIFIED ORGANISM; R65.21 - SEVERE SEPSIS WITH SEPTIC SHOCK Status: Resolved (2) Acute on chronic respiratory failure with hypercapnia Code(s): J96.22 - ACUTE AND CHRONIC RESPIRATORY FAILURE WITH HYPERCAPNIA Status: Acute Comment: Pt is intubated, in CCU. Hx of COPD with extensive chronic changes. Continue vent support, bronchodilators, steroids and wean as possible. Discussed with Dr. Rodrigues. She chronically debilitated from her lung disease. (3) Pneumonia Code(s): J18.9 - PNEUMONIA, UNSPECIFIED ORGANISM Status: Resolved Comment: Gerson (4) Fall Code(s): W19.XXXA - UNSPECIFIED FALL, INITIAL ENCOUNTER Status: Acute Comment: resultant femoral neck fracture (5) Fracture of femoral neck, right Code(s): S72.001A - FRACTURE OF UNSP PART OF NECK OF RIGHT FEMUR, INIT Status : Acute Comment: Post-op hemiarthoplasty. (6) COPD with exacerbation Code(s): J44.1 - CHRONIC OBSTRUCTIVE PULMONARY DISEASE W (ACUTE) EXACERBATION Status: Acute Comment: Steroids, nebs. (7) Hypertension Code(s): I10 - ESSENTIAL (PRIMARY) HYPERTENSION Status: Chronic Comment: Meds held. - Plan cont current plan of care, plan discussed w/ family, diana catheter, continue antibiotics, PT/OT, respiratory therapy, DVT proph w/lovenox .
[2017-12-31] MEDS: HumaLOG 300 UNITS/3 ML VIAL SC PRN (17:43)
--- NOTE | 2017-12-31 17:54 | PRG ---
DATE OF SERVICE: 12/31/2017 SUBJECTIVE: Ms. Askew was stable overnight. OBJECTIVE: VITAL SIGNS: Blood pressure 124/58 this afternoon, respiratory rate 15, heart rate is 93. Intake an d output is positive 889. LUNGS: Remarkable for slightly prolonged expiratory phase, but she is probably near her baseline. HEART: Regular rhythm. S1 and S2 are normal. ABDOMEN: Soft and nontender. IMAGING: Chest radiograph is hazy at both lung bases. Reviewed intake and output, she is positive over 7 liters of fluid. LABORATORY DATA: White count 12.4, hemoglobin 9.6, platelets 121,000. Sodium 143, potassium 4.4, ch loride 115, bicarbonate 27, BUN 38, creatinine 0.65. PH 7.41, CO2 38, pO2 80. I met with family and answered questions. With decreased ventilatory support, it would not be unreasonable to try to diurese some volume off he r at this point. Hopefully, this will not make her secretions thicker, which would lead to increasin g bronchospasm. We will continue with her nebulizer treatments and mechanical ventilation. Her ventilatory rate has been decreased today. She will continue with IV sedation. She is still on IV Levaquin. She is on 40 mg a day of Medrol, which should be enough I would think given her clinical improvement. I would hope that we could get her weaned and extubated before the weekend. I have explained to neo queen family that this is not surprising given the severity of her obstructive lung disease prior to this admission. Apparently, the daughter was talking to one of the hospitalist last night and appeared t o be upset because her mother was not off the ventilator. [facility]. There is a friend who is like family to Ms. Askew who is always in the room wi neo her.
[2018-01-01 05:12] LABS: Hemoglobin 8.9 g/dL (12.0-16.0); Mean Corpuscular HGB CONC 31.8 g/dL (32.0-36.0); Mean Corpuscular Hemoglobin 30.3 pg (27.0-31.0); Mean Corpuscular Volume 95.2 fL (78.0-98.0); Mean Platelet Volume 8.8 fL (7.4-10.4); Platelet Count 158 thou/uL (130-400); RBC Distribution Width 14.4 % (11.5-14.5); Red Blood Cell (RBC) Count 2.94 mill/uL (4.20-5.40); White Blood Cell (WBC) Count 14.7 thou/uL (4.8-10.8)
[2018-01-01 05:13] LABS: Band 8 % (5-11); Lymphocytes 5 % (21-51); MDiff Complete? YES; Monocytes 10 % (0-10); Neutrophil 77 % (42-75); PLT Morphology Comment Appears Adequate
[2018-01-01 05:19] LABS: ALT (SGPT) 25 U/L (8-55); AST (SGOT) 30 U/L (5-34); Albumin 2.8 g/dL (3.4-4.8); Alkaline Phosphatase 72 U/L (40-150); Anion Gap 10 mmol/L (10-20); BUN (Urea Nitrogen) 39 mg/dL (9.8-20.1); Bilirubin, Total 0.6 mg/dL (0.2-1.2); Calc. Creatinine Clearance 104 mL/min (70-130); Calcium 8.9 mg/dL (7.8-10.44); Carbon Dioxide 28 mmol/L (23-31); Chloride 107 mmol/L (98-107); Estimated GFR-MDRD 80; Globulin 2.4 g/dL (2.4-3.5); Glucose 158 mg/dL (80-115); Potassium 4.4 mmol/L (3.5-5.1); Protein, Total 5.2 g/dL (6.0-8.3); Sodium 141 mmol/L (136-145)
[2018-01-01] MEDS: Morphine 4 MG/ML VIAL SLOW IVP PRN ×2 (05:34→21:22)
[2018-01-01] MEDS: Propofol 1,000 MG/100 ML VIAL IV PRN (06:17)
[2018-01-01 07:10] LABS: Actual Bicarbonate (HCO3a) 27.9 mEq/L (22-28); Base Excess (BEa) 3.9 mEq/L (-2.0 to +3.0); CO2 Tension 39.9 mmHg (35.0-45.0); Calcium, Ionized 1.21 mmol/L (1.12-1.30); Carboxyhemoglobin (COHb) 1.5 gm% (0.0-3.0); Hemoglobin (Hb) 9.1 g/dL (12.0-16.0); O2 Tension (PaO2) 81.2 mmHg (> 80.0); Potassium - ABG Lab 4.23 mmol/L (3.70-5.30); pH, Arterial 7.46 (7.35-7.45)
[2018-01-01 07:34] LABS: ALV-art Gradient 154.125 (0-20); Puncture Site RR
--- NOTE | 2018-01-01 09:05 | RAD ---
PORTABLE AP CHEST X-RAY: 01/01/2018 HISTORY: On ventilator. Follow-up evaluation. COMPARISON: 12/31/2017 FINDINGS: Endotracheal tube, nasogastric tube, and right internal jugular vein central venous catheter remain i n place and unchanged in position. The pulmonary vasculature is at the upper limits of normal. There is mild bibasilar atelectasis. Th e lungs otherwise appear clear. The hazy density at the left lung base on the prior study is less pr ominent and may have been related to overlying soft tissue density and patient rotation on prior stud y. IMPRESSION: Overall stable chest with lines and tubes unchanged in position. POS: [facility]
[2018-01-01] MEDS: Enoxaparin Sodium 40 MG/0.4 ML SYRINGE SC SCH (09:30)
[2018-01-01] MEDS: Famotidine/PF 20 mg/2ml Vial SLOW IVP SCH ×2 (09:30→21:22)
[2018-01-01] MEDS: HumaLOG 300 UNITS/3 ML VIAL SC PRN ×2 (12:51→17:28)
[2018-01-01] MEDS: Sodium Chloride 0.45% 1,000 ML IV SCH (14:38)
--- NOTE | 2018-01-01 17:25 | PRG ---
DATE OF SERVICE: 01/01/2018 SUBJECTIVE: She was slow to awaken when sedation was turned off this morning, we will switch her to a Precedex drip. OBJECTIVE: VITAL SIGNS: Blood pressure 104/49, heart rate 102, respiratory rates in the 20s. Intake and output was negative 1303. LUNGS: Remarkable for distant breath sounds, but her expiratory phase is crab backer to her baseline. HEART: Regular rhythm. S1 and S2 are normal. ABDOMEN: Soft and nontender. EXTREMITIES: Without clubbing, cyanosis, or edema. LABORATORY DATA: White count 14.7, hemoglobin 8.9, platelets 158,000. Sodium 141, potassium 4.4, chloride 107, bicarbonate 28, BUN 39, creatinine 0.72, glucose 158. Blood gas 7.46, CO2 of 39, pO2 of 81. Mechanical rate was turned down more this morning. Hopefully, we are going to continue to progress towards weaning and extubation. Her COPD appears to be stable. Status post repair of her hip fracture. Critical care time was 30 minutes. [facility]
--- NOTE | 2018-01-01 22:19 | PDOC.PN ---
- Subjective Encounter Start Date: 01/01/18 Encounter Start Time: 14:40 Non-verbal. - Objective Resuscitation Status: Resuscitation Status FULL:Full Resuscitation Vital Signs & Weight: Vital Signs (12 hours) Pulse Resp BP Pulse Ox 01/01/18 22:00 31 H 01/01/18 20:00 29 H 01/01/18 19:39 91 L 01/01/18 18:45 105 H 139/62 01/01/18 18:00 32 H 01/01/18 16:00 25 H 01/01/18 15:15 102 H 104/49 L 01/01/18 14:00 26 H 01/01/18 13:01 102 H 149/68 H 01/01/18 12:00 25 H 01/01/18 11:55 95 Weight Admit Weight 179 lb 14.355 oz Weight 192 lb 0.362 oz Most Recent Monitor Data Heart Rate from ECG 90 NIBP 104/49 NIBP BP-Mean 67 Respiration from ECG 32 SpO2 96 I&O: 12/31/17 01/01/18 01/02/18 06:59 06:59 06:59 Intake Total 2594.5 2251.1 1470 Output Total 1705 3555 1260 Balance 889.5 -1303.9 210 Result Diagrams: 01/01/18 04:40 01/01/18 04:40 Additional Labs: Accuchecks 01/01/18 01/01/18 01/01/18 17:28 12:51 06:13 POC Glucose 196 H 192 H 145 H 01/01/18 00:58 POC Glucose 147 H Phys Exam - Physical Examination Constitutional: NAD Intubated Respiratory: no wheezing, no rales, no rhonchi, clear to auscultation bilateral Cardiovascular: RRR, no significant murmur Gastrointestinal: soft, non-tender, no distention, positive bowel sounds Musculoskeletal: no edema Dx/Plan (1) Septic shock Code(s): A41.9 - SEPSIS, UNSPECIFIED ORGANISM; R65.21 - SEVERE SEPSIS WITH SEPTIC SHOCK Status: Resolved (2) Acute on chronic respiratory failure with hypercapnia Code(s): J96.22 - ACUTE AND CHRONIC RESPIRATORY FAILURE WITH HYPERCAPNIA Status: Acute Comment: Pt is intubated, in CCU. Hx of COPD with extensive chronic changes. Continue vent support, bronchodilators, steroids and wean as possible. Discussed with Dr. Rodrigues. She chronically debilitated from her lung disease. (3) Pneumonia Code(s): J18.9 - PNEUMONIA, UNSPECIFIED ORGANISM Status: Resolved Comment: Gerson (4) Fall Code(s): W19.XXXA - UNSPECIFIED FALL, INITIAL ENCOUNTER Status: Acute Comment: resultant femoral neck fracture (5) Fracture of femoral neck, right Code(s): S72.001A - FRACTURE OF UNSP PART OF NECK OF RIGHT FEMUR, INIT Status : Acute Comment: Post-op hemiarthoplasty. (6) COPD with exacerbation Code(s): J44.1 - CHRONIC OBSTRUCTIVE PULMONARY DISEASE W (ACUTE) EXACERBATION Status: Acute Comment: Steroids, nebs. (7) Hypertension Code(s): I10 - ESSENTIAL (PRIMARY) HYPERTENSION Status: Chronic Comment: Meds held. - Plan * The sedation was changed to Precedex. Still does not appear to be waking up much. * Continue to try to wean as possible.
[2018-01-02] MEDS: HumaLOG 300 UNITS/3 ML VIAL SC PRN ×4 (00:30→17:53)
[2018-01-02 04:41] LABS: Hemoglobin 8.5 g/dL (12.0-16.0); Mean Corpuscular HGB CONC 31.8 g/dL (32.0-36.0); Mean Corpuscular Hemoglobin 30.4 pg (27.0-31.0); Mean Corpuscular Volume 95.7 fL (78.0-98.0); Mean Platelet Volume 8.5 fL (7.4-10.4); Platelet Count 152 thou/uL (130-400); RBC Distribution Width 14.2 % (11.5-14.5); Red Blood Cell (RBC) Count 2.79 mill/uL (4.20-5.40); White Blood Cell (WBC) Count 11.9 thou/uL (4.8-10.8)
[2018-01-02 04:56] LABS: ALT (SGPT) 28 U/L (8-55); AST (SGOT) 41 U/L (5-34); Albumin 2.7 g/dL (3.4-4.8); Alkaline Phosphatase 72 U/L (40-150); Anion Gap 10 mmol/L (10-20); BUN (Urea Nitrogen) 41 mg/dL (9.8-20.1); Bilirubin, Total 0.7 mg/dL (0.2-1.2); Calc. Creatinine Clearance 109 mL/min (70-130); Calcium 8.7 mg/dL (7.8-10.44); Carbon Dioxide 29 mmol/L (23-31); Chloride 105 mmol/L (98-107); Estimated GFR-MDRD 83; Globulin 2.4 g/dL (2.4-3.5); Glucose 134 mg/dL (80-115); Potassium 4.5 mmol/L (3.5-5.1); Protein, Total 5.1 g/dL (6.0-8.3); Sodium 139 mmol/L (136-145)
[2018-01-02 05:02] LABS: Band 3 % (5-11); Lymphocytes 14 % (21-51); MDiff Complete? YES; Monocytes 3 % (0-10); Neutrophil 80 % (42-75)
[2018-01-02] MEDS: Enoxaparin Sodium 40 MG/0.4 ML SYRINGE SC SCH (08:12)
[2018-01-02] MEDS: Famotidine/PF 20 mg/2ml Vial SLOW IVP SCH ×2 (08:12→20:22)
--- NOTE | 2018-01-02 10:00 | PDOC.PN ---
- Subjective Encounter Start Date: 01/02/18 Encounter Start Time: 09:58 -: non-verbal Subjective: nsg notes rev, rene ovn, pt is intubated, sedated - Objective Resuscitation Status: Resuscitation Status FULL:Full Resuscitation Vital Signs & Weight: Vital Signs (12 hours) Pulse Resp BP 01/02/18 08:00 24 H 01/02/18 07:50 85 01/02/18 06:00 21 H 01/02/18 04:07 81 128/56 L 01/02/18 04:00 25 H 01/02/18 02:00 28 H 01/02/18 00:46 90 101/50 L 01/02/18 00:00 21 H 01/01/18 22:16 79 104/49 L 01/01/18 22:00 30 H Weight Admit Weight 179 lb 14.355 oz Weight 200 lb 13.458 oz Most Recent Monitor Data Heart Rate from ECG 92 NIBP 101/44 NIBP BP-Mean 63 Respiration from ECG 23 SpO2 97 I&O: 01/01/18 01/02/18 01/03/18 06:59 06:59 06:59 Intake Total 2251.1 2855 60 Output Total 3555 1735 310 Balance -1303.9 1120 -250 Result Diagrams: 01/02/18 04:00 01/02/18 04:00 Additional Labs: Accuchecks 01/02/18 01/02/18 01/02/18 08:10 06:00 00:29 POC Glucose 129 H 160 H 180 H 01/01/18 01/01/18 17:28 12:51 POC Glucose 196 H 192 H Dx/Plan - Plan Constitutional: NAD Intubated Respiratory: no wheezing, no rales, no rhonchi, clear to auscultation bilateral , corase ventilator sounds b/l, limited anterior exam, ETT in place Cardiovascular: RRR, no significant murmur b/l UE edema Gastrointestinal: soft, non-tender, no distention, positive bowel sounds, Rosales draining clear yellow urine Dx/Plan (1) Septic shock Code(s): A41.9 - SEPSIS, UNSPECIFIED ORGANISM; R65.21 - SEVERE SEPSIS WITH SEPTIC SHOCK Status: Resolved (2) Acute on chronic respiratory failure with hypercapnia Code(s): J96.22 - ACUTE AND CHRONIC RESPIRATORY FAILURE WITH HYPERCAPNIA Status: Acute Comment: Pt is intubated, in CCU. Hx of COPD with extensive chronic changes. Continue vent support, bronchodilators, steroids and wean as possible. Discussed with Dr. Rodrigues. She chronically debilitated from her lung disease. Weaning as tolerated (3) Pneumonia Code(s): J18.9 - PNEUMONIA, UNSPECIFIED ORGANISM Status: Resolved Comment: Levaquin See discussion above (4) Fall Code(s): W19.XXXA - UNSPECIFIED FALL, INITIAL ENCOUNTER Status: Acute Comment: resultant femoral neck fracture (5) Fracture of femoral neck, right Code(s): S72.001A - FRACTURE OF UNSP PART OF NECK OF RIGHT FEMUR, INIT Status : Acute Comment: Post-op hemiarthoplasty. (6) COPD with exacerbation Code(s): J44.1 - CHRONIC OBSTRUCTIVE PULMONARY DISEASE W (ACUTE) EXACERBATION Status: Acute Comment: Steroids, nebs. (7) Hypertension Code(s): I10 - ESSENTIAL (PRIMARY) HYPERTENSION Status: Chronic Comment: Meds held. - Plan Overall limited prognosis. Complicated family dynamics. C/S Palliative care to help provide family support. D/W bedside nsg Review of Systems - Medications/Allergies Allergies/Adverse Reactions: Allergies Allergy/AdvReac Type Severity Reaction Status Date / Time esomeprazole magnesium Allergy Mild Verified 09/05/12 07:16 [From Nexium] bacitracin Allergy Verified 11/02/12 01:41 [From Neosporin ([id number])] bacitracin zinc Allergy Verified 11/02/12 01:41 [From Neosporin ([id number])] codeine Allergy Verified 09/05/12 06:35 metronidazole [From Flagyl] Allergy Verified 12/11/12 09:58 Metronidazole HCl Allergy Verified 12/11/12 09:58 [From Flagyl] neomycin sulfate Allergy Verified 11/02/12 01:41 [From Neosporin ([id number])] nitrofurantoin Allergy Verified 12/11/12 09:58 [Nitrofurantoin] Penicillins Allergy Verified 09/05/12 06:35 polymyxin B Allergy Verified 11/02/12 01:41 [From Neosporin ([id number])] sulfacetamide sodium Allergy Verified 12/11/12 09:58 [From Sulfamide] Medications: Current Medications Acetaminophen (Tylenol) 650 mg AR Q6H PRN PRN Reason: Fever > 101 or Mild Pain Albuterol/Ipratropium (Duoneb) 3 ml NEB [id number] [facility] Last Admin: 01/02/18 07:49 Dose: 3 ml Bisacodyl (Dulcolax) 10 mg PO DAILYPRN PRN PRN Reason: Constipation Dextrose/Water (Dextrose 50%) 25 gm SLOW IVP PRN PRN PRN Reason: Hypoglycemia Enoxaparin Sodium (Lovenox) 40 mg SC 0900 [facility] Last Admin: 01/02/18 08:12 Dose: 40 mg Famotidine (Pepcid) 20 mg SLOW IVP Q12HR [facility] Last Admin: 01/02/18 08:12 Dose: 20 mg Glucagon (Glucagon) 1 mg IM PRN PRN PRN Reason: Hypoglycemia Fentanyl Citrate 2,000 mcg/ (Sodium Chloride) 100 mls @ 0 mls/hr IV INF [facility]; Protocol Stop: 01/24/18 23:11 Last Admin: 12/27/17 18:38 Dose: 100 mls Dextrose/Water (D5w) 1,000 mls @ 0 mls/hr IV .Q0M PRN PRN Reason: Hypoglycemia Potassium Chloride 40 meq/ (Sodium Chloride) 270 mls @ 135 mls/hr IVPB ASDIR PRN PRN Reason: FOR SERUM K+ 2.5 - 3.5 Potassium Chloride 40 meq/ (Device) 100 mls @ 50 mls/hr IVPB ASDIR PRN PRN Reason: FOR SERUM K+ 2.5 - 3.5 Magnesium Sulfate 1 gm/ Sodium (Chloride) 102 mls @ 102 mls/hr IV PRN PRN PRN Reason: MAG LEVEL 1.4 - 2.0 Magnesium Sulfate 2 gm/ Device 100 mls @ 100 mls/hr IVPB ASDIR PRN PRN Reason: MAGNESIUM < 1.4 Potassium Phosphate 9 mmol/ (Sodium Chloride) 103 mls @ 25.75 mls/hr IVPB ASDIR PRN PRN Reason: Phosphate 1.0-1.8 Potassium Phosphate 12 mmol/ (Sodium Chloride) 254 mls @ 63.5 mls/hr IV ASDIR PRN PRN Reason: Serum phosphate 0.5-0.9 Potassium Phosphate 15 mmol/ (Sodium Chloride) 255 mls @ 63.75 mls/hr IV ASDIR PRN PRN Reason: Serum Phos < 0.5 Levofloxacin 500 mg/ Device 100 mls @ 100 mls/hr IVPB 1200 [facility] Last Admin: 01/01/18 12:30 Dose: 100 mls Fentanyl Citrate (Fentanyl Bolus) 250 mls @ 0 mls/hr IVPB PRN PRN PRN Reason: Breakthrough pain/agitation Stop: 01/25/18 17:15 Sodium Chloride (1/2 Normal Saline) 1,000 mls @ 50 mls/hr IV .Q20H [facility] Last Admin: 01/01/18 14:38 Dose: 1,000 mls Dexmedetomidine HCl 200 mcg/ (Sodium Chloride) 50 mls @ 0 mls/hr IVPB INF [facility]; Protocol Last Admin: 01/02/18 06:46 Dose: 50 mls Insulin Human Lispro (Humalog) 0 units SC .MILD SLIDING SCALE PRN PRN Reason: Mild Correctional Scale Last Admin: 01/02/18 06:03 Dose: 2 unit Insulin Human Lispro (Humalog) 0 units SC .BEDTIME SLIDING SC PRN PRN Reason: Bedtime Correctional Scale Magnesium Oxide (Magnesium Oxide) 400 mg PO BIDPRN PRN PRN Reason: FOR SERUM MAG 1.4 - 2.0 Magnesium Oxide (Magnesium Oxide) 800 mg PO PRN PRN PRN Reason: FOR SERUM MAG < 1.4 Methylprednisolone Sodium Succinate (Solu-Medrol) 40 mg IVP DAILY [facility] Last Admin: 01/02/18 08:12 Dose: 40 mg Mineral Oil/White Petrolatum (Lacri-Lube Ointment) 0 gm EA EYE PRN PRN PRN Reason: Dry Eyes Miscellaneous Medication (Phos-Nak) 1 pkt PO TIDPRN PRN PRN Reason: FOR PHOS LEVEL 1.0 - 1.8 Miscellaneous Medication (Phos-Nak) 2 pkt PO TIDPRN PRN PRN Reason: FOR PHOS LEVEL 0.5 - 1.0 Morphine Sulfate (Morphine) 2 mg SLOW IVP Q1H PRN PRN Reason: BREAKTHROUGH PAIN/AGITATION Stop: 01/24/18 23:13 Last Admin: 01/01/18 21:22 Dose: 2 mg Potassium Chloride (K-Dur) 40 meq PO ASDIR PRN PRN Reason: FOR SERUM K+ 2.5 - 3.5 Potassium Chloride (Klor-Con) 40 meq PER TUBE ASDIR PRN PRN Reason: FOR SERUM K+ 2.5-3.5 Sodium Chloride (Flush - Normal Saline) 10 ml IVF Q12HR [facility] Last Admin: 01/02/18 08:12 Dose: 10 ml Sodium Chloride (Flush - Normal Saline) 10 ml IVF PRN PRN PRN Reason: Saline Flush
[2018-01-02] MEDS: Sodium Chloride 0.45% 1,000 ML IV SCH (11:40)
--- NOTE | 2018-01-02 17:03 | PRG ---
DATE OF SERVICE: 01/02/2018 SUBJECTIVE: Ms. Askew awakened after sedation has been held. She is not awake enough to extubate. She is on basically pressure of 12 and PEEP of 5 ventilation. Her minute volume was 8-9 liters a minute. OBJECTIVE: VITAL SIGNS: Heart rate is 106, blood pressure 120/63, respiratory rate is in the 20s. LUNGS: Clear. HEART: Regular rhythm. ABDOMEN: Soft. EXTREMITIES: Without asymmetry. LABORATORY DATA: White count 11.9, hemoglobin 8.5, platelets 152,000. Sodium 139, potassium 4.5, ch loride 105, bicarb 29, BUN 41, creatinine 0.7. Stopped doing daily blood gases. IMPRESSION: 1. Respiratory failure after surgical repair of a hip fracture. 2. Underlying severe chronic obstructive pulmonary disease. PLAN: Weaning and extubation once she is more alert. All sedation has been held.
[2018-01-03] MEDS: HumaLOG 300 UNITS/3 ML VIAL SC PRN ×3 (00:07→17:22)
[2018-01-03] MEDS: Morphine 4 MG/ML VIAL SLOW IVP PRN (00:28)
[2018-01-03 04:53] LABS: ALT (SGPT) 39 U/L (8-55); AST (SGOT) 60 U/L (5-34); Albumin 2.5 g/dL (3.4-4.8); Alkaline Phosphatase 74 U/L (40-150); Anion Gap 11 mmol/L (10-20); BUN (Urea Nitrogen) 37 mg/dL (9.8-20.1); Bilirubin, Total 0.6 mg/dL (0.2-1.2); Calc. Creatinine Clearance 116 mL/min (70-130); Calcium 8.7 mg/dL (7.8-10.44); Carbon Dioxide 29 mmol/L (23-31); Chloride 105 mmol/L (98-107); Estimated GFR-MDRD 89; Globulin 2.4 g/dL (2.4-3.5); Glucose 125 mg/dL (80-115); Potassium 4.3 mmol/L (3.5-5.1); Protein, Total 4.9 g/dL (6.0-8.3); Sodium 141 mmol/L (136-145)
[2018-01-03 04:59] LABS: Band 18 % (5-11); Hemoglobin 8.1 g/dL (12.0-16.0); Lymphocytes 4 % (21-51); MDiff Complete? YES; Mean Corpuscular HGB CONC 31.5 g/dL (32.0-36.0); Mean Corpuscular Volume 95.3 fL (78.0-98.0); Mean Platelet Volume 8.6 fL (7.4-10.4); Monocytes 3 % (0-10); Myelocyte 1 % (0-0); Neutrophil 74 % (42-75); Platelet Count 186 thou/uL (130-400); RBC Distribution Width 14.2 % (11.5-14.5); Red Blood Cell (RBC) Count 2.71 mill/uL (4.20-5.40); White Blood Cell (WBC) Count 14.3 thou/uL (4.8-10.8)
[2018-01-03] MEDS: Sodium Chloride 0.45% 1,000 ML IV SCH ×2 (05:55→21:30)
--- NOTE | 2018-01-03 10:03 | PRG ---
DATE OF SERVICE: 01/03/2018 Evelyn Askew is still slow to awaken. I do not feel comfortable extubating her. She was placed back on volume ventilation last night because she became tachypneic. PHYSICAL EXAMINATION: VITAL SIGNS: Blood pressures have been in the 120s. It is recorded as 89, but her arm was elevated. The cuff had slipped down when this was taken. Heart is 94, respiratory rates 22. LUNGS: Lungs are distant. She still has a slightly prolonged expiratory phase, which is probably cl ose to her baseline. HEART: Regular rhythm. ABDOMEN: Soft. LABORATORY DATA: White count 14.3, hemoglobin 8.1, platelets 186. Sodium 141, potassium 4.3, chloride 105, bicarbonate 29, BUN 37, creatinine 0.66. IMPRESSION: 1. Respiratory failure associated with severe underlying chronic obstructive pulmonary disease and d econditioning 2. Status post fall with a hip fracture. After the hip fracture and fall she was subsequently intub ated. Some of this was a panic attack, but some of it may have been her chronic obstructive pulmonar y disease. It is unclear how hypoxic she was at home. There is no evidence of cardiac or respirator y arrest from what I can tell. We will just continue with withholding sedation and wait for an improvement in her neurological statu s. It is unlikely she has had a central nervous system event around her surgery, but if she fails to improve, we will consider imaging of her brain. She will not be weanable until she is more alert.
[2018-01-03] MEDS: Enoxaparin Sodium 40 MG/0.4 ML SYRINGE SC SCH (10:40)
[2018-01-03] MEDS: Famotidine/PF 20 mg/2ml Vial SLOW IVP SCH ×2 (10:40→21:23)
[2018-01-03] MEDS ORDERED: Sodium Chloride 0.9% 1,000 ML IV SCH (11:00)
--- NOTE | 2018-01-03 14:13 | PDOC.PN ---
- Subjective Encounter Start Date: 01/03/18 Encounter Start Time: 14:11 -: non-verbal Subjective: nsg notes rev, rene ovn, still intub - Objective Resuscitation Status: Resuscitation Status FULL:Full Resuscitation Vital Signs & Weight: Vital Signs (12 hours) Temp Pulse Pulse Pulse Resp BP BP 01/03/18 13:29 93 114/55 L 01/03/18 10:16 72 71 92/63 01/03/18 09:53 101 H 81/36 L 01/03/18 06:54 96 89/49 L 01/03/18 06:42 95 89/49 L 01/03/18 06:00 20 01/03/18 04:00 98.8 F 20 01/03/18 03:26 97 01/03/18 03:25 99 22 H BP Pulse Ox Pulse Ox 01/03/18 13:29 01/03/18 10:16 113/51 L 95 01/03/18 09:53 01/03/18 06:54 01/03/18 06:42 01/03/18 06:00 01/03/18 04:00 01/03/18 03:26 01/03/18 03:25 96 Weight Admit Weight 179 lb 14.355 oz Weight 199 lb 4.766 oz Most Recent Monitor Data Heart Rate from ECG 103 NIBP 96/40 NIBP BP-Mean 58 Respiration from ECG 25 SpO2 100 I&O: 01/02/18 01/03/18 01/04/18 06:59 06:59 06:59 Intake Total 2855 2538 Output Total 1735 2995 Balance 1120 -457 Result Diagrams: 01/03/18 03:55 01/03/18 03:55 Additional Labs: Accuchecks 01/03/18 01/03/18 01/03/18 13:27 05:59 00:07 POC Glucose 197 H 119 H 166 H 01/02/18 01/02/18 17:51 12:02 POC Glucose 176 H 193 H Dx/Plan - Plan Constitutional: NAD Intubated Respiratory: no wheezing, no rales, no rhonchi, clear to auscultation bilateral , corase ventilator sounds b/l, limited anterior exam, ETT in place Cardiovascular: RRR, no significant murmur b/l UE edema Gastrointestinal: soft, non-tender, no distention, positive bowel sounds, Rosalse draining clear yellow urine Dx/Plan (1) Septic shock Code(s): A41.9 - SEPSIS, UNSPECIFIED ORGANISM; R65.21 - SEVERE SEPSIS WITH SEPTIC SHOCK Status: Resolved likely 2/2 pneumonia - currently on levaquin (2) Acute on chronic respiratory failure with hypercapnia Code(s): J96.22 - ACUTE AND CHRONIC RESPIRATORY FAILURE WITH HYPERCAPNIA Status: Acute Comment: Pt is intubated, in CCU. Hx of COPD with extensive chronic changes. Continue vent support, bronchodilators, steroids and wean as possible. She chronically debilitated from her lung disease. Weaning as tolerated (3) Pneumonia Code(s): J18.9 - PNEUMONIA, UNSPECIFIED ORGANISM Status: Resolved Comment: Levaquin See discussion above (4) Fall Code(s): W19.XXXA - UNSPECIFIED FALL, INITIAL ENCOUNTER Status: Acute Comment: resultant femoral neck fracture (5) Fracture of femoral neck, right Code(s): S72.001A - FRACTURE OF UNSP PART OF NECK OF RIGHT FEMUR, INIT Status : Acute Comment: Post-op hemiarthoplasty. (6) COPD with exacerbation Code(s): J44.1 - CHRONIC OBSTRUCTIVE PULMONARY DISEASE W (ACUTE) EXACERBATION Status: Acute Comment: Steroids, nebs. Extensive underlying emphesematous disease (7) Hypertension Code(s): I10 - ESSENTIAL (PRIMARY) HYPERTENSION Status: Chronic Comment: Meds held - re-start as needed/ tolerated d/w pt's family and palliative care in family meeting - please see separate event note Review of Systems - Medications/Allergies Allergies/Adverse Reactions: Allergies Allergy/AdvReac Type Severity Reaction Status Date / Time esomeprazole magnesium Allergy Mild Verified 09/05/12 07:16 [From Nexium] bacitracin Allergy Verified 11/02/12 01:41 [From Neosporin ([id number])] bacitracin zinc Allergy Verified 11/02/12 01:41 [From Neosporin ([id number])] codeine Allergy Verified 09/05/12 06:35 metronidazole [From Flagyl] Allergy Verified 12/11/12 09:58 Metronidazole HCl Allergy Verified 12/11/12 09:58 [From Flagyl] neomycin sulfate Allergy Verified 11/02/12 01:41 [From Neosporin ([id number])] nitrofurantoin Allergy Verified 12/11/12 09:58 [Nitrofurantoin] Penicillins Allergy Verified 09/05/12 06:35 polymyxin B Allergy Verified 11/02/12 01:41 [From Neosporin ([id number])] sulfacetamide sodium Allergy Verified 12/11/12 09:58 [From Sulfamide] Medications: Current Medications Acetaminophen (Tylenol) 650 mg MT Q6H PRN PRN Reason: Fever > 101 or Mild Pain Albuterol/Ipratropium (Duoneb) 3 ml NEB [id number] [facility] Last Admin: 01/03/18 13:27 Dose: 3 ml Bisacodyl (Dulcolax) 10 mg PO DAILYPRN PRN PRN Reason: Constipation Dextrose/Water (Dextrose 50%) 25 gm SLOW IVP PRN PRN PRN Reason: Hypoglycemia Enoxaparin Sodium (Lovenox) 40 mg SC 0900 [facility] Last Admin: 01/03/18 10:40 Dose: 40 mg Famotidine (Pepcid) 20 mg SLOW IVP Q12HR [facility] Last Admin: 01/03/18 10:40 Dose: 20 mg Glucagon (Glucagon) 1 mg IM PRN PRN PRN Reason: Hypoglycemia Dextrose/Water (D5w) 1,000 mls @ 0 mls/hr IV .Q0M PRN PRN Reason: Hypoglycemia Potassium Chloride 40 meq/ (Sodium Chloride) 270 mls @ 135 mls/hr IVPB ASDIR PRN PRN Reason: FOR SERUM K+ 2.5 - 3.5 Potassium Chloride 40 meq/ (Device) 100 mls @ 50 mls/hr IVPB ASDIR PRN PRN Reason: FOR SERUM K+ 2.5 - 3.5 Magnesium Sulfate 1 gm/ Sodium (Chloride) 102 mls @ 102 mls/hr IV PRN PRN PRN Reason: MAG LEVEL 1.4 - 2.0 Magnesium Sulfate 2 gm/ Device 100 mls @ 100 mls/hr IVPB ASDIR PRN PRN Reason: MAGNESIUM < 1.4 Potassium Phosphate 9 mmol/ (Sodium Chloride) 103 mls @ 25.75 mls/hr IVPB ASDIR PRN PRN Reason: Phosphate 1.0-1.8 Potassium Phosphate 12 mmol/ (Sodium Chloride) 254 mls @ 63.5 mls/hr IV ASDIR PRN PRN Reason: Serum phosphate 0.5-0.9 Potassium Phosphate 15 mmol/ (Sodium Chloride) 255 mls @ 63.75 mls/hr IV ASDIR PRN PRN Reason: Serum Phos < 0.5 Levofloxacin 500 mg/ Device 100 mls @ 100 mls/hr IVPB 1200 [facility] Last Admin: 01/03/18 12:05 Dose: 100 mls Sodium Chloride (1/2 Normal Saline) 1,000 mls @ 50 mls/hr IV .Q20H [facility] Last Admin: 01/03/18 05:55 Dose: 1,000 mls Insulin Human Lispro (Humalog) 0 units SC .MILD SLIDING SCALE PRN PRN Reason: Mild Correctional Scale Last Admin: 01/03/18 13:27 Dose: 2 unit Insulin Human Lispro (Humalog) 0 units SC .BEDTIME SLIDING SC PRN PRN Reason: Bedtime Correctional Scale Magnesium Oxide (Magnesium Oxide) 400 mg PO BIDPRN PRN PRN Reason: FOR SERUM MAG 1.4 - 2.0 Magnesium Oxide (Magnesium Oxide) 800 mg PO PRN PRN PRN Reason: FOR SERUM MAG < 1.4 Methylprednisolone Sodium Succinate (Solu-Medrol) 40 mg IVP DAILY [facility] Last Admin: 01/03/18 10:40 Dose: 40 mg Mineral Oil/White Petrolatum (Lacri-Lube Ointment) 0 gm EA EYE PRN PRN PRN Reason: Dry Eyes Miscellaneous Medication (Phos-Nak) 1 pkt PO TIDPRN PRN PRN Reason: FOR PHOS LEVEL 1.0 - 1.8 Miscellaneous Medication (Phos-Nak) 2 pkt PO TIDPRN PRN PRN Reason: FOR PHOS LEVEL 0.5 - 1.0 Morphine Sulfate (Morphine) 2 mg SLOW IVP Q1H PRN PRN Reason: BREAKTHROUGH PAIN/AGITATION Stop: 01/24/18 23:13 Last Admin: 01/03/18 00:28 Dose: 2 mg Potassium Chloride (K-Dur) 40 meq PO ASDIR PRN PRN Reason: FOR SERUM K+ 2.5 - 3.5 Potassium Chloride (Klor-Con) 40 meq PER TUBE ASDIR PRN PRN Reason: FOR SERUM K+ 2.5-3.5 Sodium Chloride (Flush - Normal Saline) 10 ml IVF Q12HR ZOYA Last Admin: 01/03/18 10:40 Dose: 10 ml Sodium Chloride (Flush - Normal Saline) 10 ml IVF PRN PRN PRN Reason: Saline Flush
--- NOTE | 2018-01-03 14:16 | PDOC.EVN ---
Event Note - Event Note Event Note: Advanced Care Planning present: myself, pt's dtr, pts granddtr, pt's close friend, Palliative Care Nsg dx: COPD exac with acute hypoxic resp failure pna sepsis Discussion: Updated family in family meeting regarding the patient's acute issues including significant respiratory disease both chronic underlying and acute exacerbation overlying. Discussed use of respiratory support in the form of mechanical ventilation and the accompanying medications and protocol for her care. Discussed treatment of pneumonia for the patient. Patient's family wanted to know the sequence of events leading her hospitalization - discussed that it is difficult to say for sure, but she certainly had multiple co-morbid underlying AND active issues at the time of admission that all play into her current prognosis. Relayed the family that the patient is acutely and critically ill and we will keep them involved with the patient's progress. Greater than 16 min spent discussing current care plan. Pt remains full code.
[2018-01-04 04:36] LABS: Band 4 % (5-11); Hemoglobin 8.6 g/dL (12.0-16.0); Lymphocytes 4 % (21-51); MDiff Complete? YES; Mean Corpuscular HGB CONC 32.3 g/dL (32.0-36.0); Mean Corpuscular Hemoglobin 30.5 pg (27.0-31.0); Mean Corpuscular Volume 94.4 fL (78.0-98.0); Metamyelocyte 1 % (0-0); Monocytes 3 % (0-10); Neutrophil 88 % (42-75); Platelet Count 225 thou/uL (130-400); RBC Distribution Width 14.4 % (11.5-14.5); Red Blood Cell (RBC) Count 2.82 mill/uL (4.20-5.40); Toxic Granulation SLIGHT; White Blood Cell (WBC) Count 16.3 thou/uL (4.8-10.8)
[2018-01-04 04:42] LABS: ALT (SGPT) 50 U/L (8-55); AST (SGOT) 59 U/L (5-34); Albumin 2.8 g/dL (3.4-4.8); Alkaline Phosphatase 89 U/L (40-150); Anion Gap 9 mmol/L (10-20); BUN (Urea Nitrogen) 32 mg/dL (9.8-20.1); Bilirubin, Total 0.6 mg/dL (0.2-1.2); Calc. Creatinine Clearance 118 mL/min (70-130); Calcium 9.1 mg/dL (7.8-10.44); Carbon Dioxide 30 mmol/L (23-31); Chloride 104 mmol/L (98-107); Estimated GFR-MDRD Greater than 90; Globulin 2.5 g/dL (2.4-3.5); Glucose 146 mg/dL (80-115); Potassium 4.4 mmol/L (3.5-5.1); Protein, Total 5.3 g/dL (6.0-8.3); Sodium 139 mmol/L (136-145)
[2018-01-04] MEDS: Enoxaparin Sodium 40 MG/0.4 ML SYRINGE SC SCH (09:50)
[2018-01-04] MEDS: Famotidine/PF 20 mg/2ml Vial SLOW IVP SCH ×2 (09:50→21:07)
--- NOTE | 2018-01-04 11:15 | PRG ---
DATE OF SERVICE: 01/04/2018 SERVICE: Pulmonary Medicine. INTERVAL HISTORY: The patient is doing okay from a respiratory standpoint. Neurologically, however, she is not doing well. She has been off sedation for over 24 hours. She continues to not follow any commands. PHYSICAL EXAMINATION: VITAL SIGNS: Afebrile, pulse 99, blood pressure is 93/42, respirations 24, saturation 98% on 37% FiO2 and a PEEP of 5. GENERAL: Patient is intubated. She is under the influence of no sedation. HEENT: Normocephalic, atraumatic. Sclerae are white, conjunctivae pink. Oral and nasal mucosa is moist without lesions. LUNGS: Decent air entry. Extensive rhonchi are present. There is a prolonged expiratory phase. Dependent crackles are noted. HEART: Normal rate, regular. ABDOMEN: Soft, nontender, nondistended. Bowel sounds are positive. MUSCULOSKELETAL: No cyanosis or clubbing. There is diffuse edema throughout. NEUROLOGIC: She is overbreathing the ventilator and demonstrates a good cough and gag. Her left pupil is nonreactive to light. Her right pupil is sluggishly reactive. Both of them are dilated. With noxious stimuli to all four extremities, she does nothing more than posturing. She does demonstrate a crossed extensor reflex in the bilateral lower extremities, however. LABORATORY DATA: WBC 16.3, hemoglobin 8.6, platelets 225,000 with a neutrophil predominance. BUN 32, creatinine 0.64. Basic metabolic profile is otherwise unremarkable/stable. Urinalysis is unremarkable. Blood culture x2 is negative , influenza is unremarkable. ASSESSMENT: 1. Acute hypoxic respiratory failure. 2. Chronic obstructive pulmonary disease with acute exacerbation. 3. Hip fracture, status post repair. 4. Abnormal neurologic exam focalizing to the brainstem. DISCUSSION AND PLAN: We will continue our supportive care and keep her off of sedation. IV fluids will be minimized. I will provide her with a single dose of Lasix today. In 24-48 hours, if she does not have significant improvement in neurologic function, repeat imaging of the brain will be considered. I have made some adjustments to the ventilator to minimize dyssynchrony. Critical care time: 30 minutes. MTDD
[2018-01-04] MEDS: HumaLOG 300 UNITS/3 ML VIAL SC PRN ×2 (13:31→18:23)
--- NOTE | 2018-01-04 16:02 | PDOC.PN ---
- Subjective Encounter Start Date: 01/04/18 Encounter Start Time: 14:15 Subjective: on vent, off of sedation, not responding - Objective Resuscitation Status: Resuscitation Status FULL:Full Resuscitation MAR Reviewed: Yes Vital Signs & Weight: Vital Signs (12 hours) Temp Pulse Resp BP Pulse Ox 01/04/18 14:00 26 H 01/04/18 13:49 95 124/58 L 01/04/18 13:48 95 24 H 93 L 01/04/18 12:00 98.6 F 26 H 01/04/18 10:39 99 93/42 L 01/04/18 10:38 100 24 H 94 L 01/04/18 10:00 24 H 01/04/18 08:00 98.0 F 24 H 95 01/04/18 07:41 103 H 87/36 L 01/04/18 07:39 103 H 28 H 93 L 01/04/18 06:00 22 H 01/04/18 05:00 99.4 F Weight Admit Weight 179 lb 14.355 oz Weight 191 lb 2.252 oz Most Recent Monitor Data Heart Rate from ECG 96 NIBP 125/53 NIBP BP-Mean 77 Respiration from ECG 26 SpO2 94 I&O: 01/03/18 01/04/18 01/05/18 06:59 06:59 06:59 Intake Total 2538 3728 60 Output Total 2994 3230 980 Balance -457 422 -145 Result Diagrams: 01/05/18 03:51 01/05/18 03:51 Additional Labs: Accuchecks 01/04/18 01/04/18 01/03/18 13:13 00:44 17:21 POC Glucose 185 H 169 H 214 H Phys Exam - Physical Examination on ventilator Cardiovascular: RRR, no significant murmur, no rub, gallop, irregular Gastrointestinal: soft, non-tender, no distention, positive bowel sounds Musculoskeletal: edema present no response Dx/Plan (1) Acute hypercapnic respiratory failure Code(s): J96.02 - ACUTE RESPIRATORY FAILURE WITH HYPERCAPNIA Status: Acute (2) Acute on chronic respiratory failure with hypercapnia Code(s): J96.22 - ACUTE AND CHRONIC RESPIRATORY FAILURE WITH HYPERCAPNIA Status: Acute Comment: Pt is intubated, in CCU. Hx of COPD with extensive chronic changes. Continue vent support, bronchodilators, steroids and wean as possible. Discussed with Dr. Rodrigues. She chronically debilitated from her lung disease. (3) Fracture of femoral neck, right Code(s): S72.001A - FRACTURE OF UNSP PART OF NECK OF RIGHT FEMUR, INIT Status : Acute Comment: Post-op hemiarthoplasty. (4) Shock Code(s): R57.9 - SHOCK, UNSPECIFIED Status: Acute Comment: Likely septic, from pneumonia. Continue IV dopamine (5) Pneumonia Code(s): J18.9 - PNEUMONIA, UNSPECIFIED ORGANISM Status: Resolved Comment: Gerson (6) Septic shock Code(s): A41.9 - SEPSIS, UNSPECIFIED ORGANISM; R65.21 - SEVERE SEPSIS WITH SEPTIC SHOCK Status: Resolved Comment: Likley pneumonia source. BP improved. (7) Acute and chronic respiratory failure Code(s): J96.20 - ACUTE AND CHR RESP FAILURE, UNSP W HYPOXIA OR HYPERCAPNIA Status: Acute - Plan cont current plan of care, diana catheter, continue antibiotics, DVT proph w/ SCDs * .
[2018-01-05 04:33] LABS: ALT (SGPT) 59 U/L (8-55); AST (SGOT) 50 U/L (5-34); Albumin 2.9 g/dL (3.4-4.8); Alkaline Phosphatase 91 U/L (40-150); Anion Gap 9 mmol/L (10-20); BUN (Urea Nitrogen) 32 mg/dL (9.8-20.1); Bilirubin, Total 0.6 mg/dL (0.2-1.2); Calc. Creatinine Clearance 119 mL/min (70-130); Calcium 9.2 mg/dL (7.8-10.44); Carbon Dioxide 31 mmol/L (23-31); Chloride 102 mmol/L (98-107); Estimated GFR-MDRD Greater than 90; Globulin 2.6 g/dL (2.4-3.5); Glucose 151 mg/dL (80-115); Potassium 4.3 mmol/L (3.5-5.1); Protein, Total 5.5 g/dL (6.0-8.3); Sodium 138 mmol/L (136-145)
[2018-01-05 05:56] LABS: Band 12 % (5-11); Hemoglobin 8.9 g/dL (12.0-16.0); Lymphocytes 6 % (21-51); MDiff Complete? YES; Mean Corpuscular HGB CONC 32.4 g/dL (32.0-36.0); Mean Corpuscular Hemoglobin 30.9 pg (27.0-31.0); Mean Corpuscular Volume 95.1 fL (78.0-98.0); Mean Platelet Volume 8.1 fL (7.4-10.4); Monocytes 4 % (0-10); Neutrophil 78 % (42-75); Platelet Count 273 thou/uL (130-400); RBC Distribution Width 14.6 % (11.5-14.5); Red Blood Cell (RBC) Count 2.89 mill/uL (4.20-5.40); White Blood Cell (WBC) Count 16.9 thou/uL (4.8-10.8)
[2018-01-05] MEDS: Enoxaparin Sodium 40 MG/0.4 ML SYRINGE SC SCH (08:35)
[2018-01-05] MEDS: Famotidine/PF 20 mg/2ml Vial SLOW IVP SCH ×2 (08:35→20:17)
[2018-01-05] MEDS: HumaLOG 300 UNITS/3 ML VIAL SC PRN ×2 (11:50→17:02)
[2018-01-05] MEDS ORDERED: Furosemide 20 MG/2 ML VIAL SLOW IVP SCH (12:15)
--- NOTE | 2018-01-05 12:21 | PRG ---
DATE OF SERVICE: 01/05/2018 SERVICE: Pulmonary Medicine. INTERVAL HISTORY: The patient is doing poorly from a mentation standpoint. Respiratory sweeney, things are fine. She remains on pressure support ventilation. She has not been on sedation in over 3 days. Otherwise, there has been no interval change to her condition. PHYSICAL EXAMINATION: VITAL SIGNS: Afebrile with a T-max 100.0, pulse 92, blood pressure 119/46, respirations 26, saturation 96% on 31% FiO2. GENERAL: The patient is intubated. She is on no influence of sedation. HEENT: Normocephalic, atraumatic. Sclerae are white, conjunctivae pink. Oral and nasal mucosa is moist without lesions. LUNGS: Decent air entry. Rhonchi and crackles are present. No prolonged expiratory phase or wheezing is appreciated. HEART: Normal rate and regular. ABDOMEN: Soft, nontender, nondistended. Bowel sounds are positive. MUSCULOSKELETAL: No cyanosis or clubbing. There is diffuse pitting in the bilateral lower extremities, which is a little better. NEUROLOGIC: Upper extremities posture with noxious stimuli. Lower extremities demonstrate a crossed extensor reflex. Right pupil is very sluggish. Left pupil is not reactive. Dolls-eyes are abnormal. She is comfortably driving the ventilator. LABORATORY DATA: WBC 16.9, hemoglobin 8.9, platelets 273,000. Basic metabolic profile and liver function studies are essentially unremarkable/stable. Blood sugar is 144. Blood culture x2 and influenza are negative. ASSESSMENT: 1. Acute hypoxic respiratory failure. 2. Chronic obstructive pulmonary disease with acute exacerbation. 3. Hip fracture, status post repair. 4. Abnormal neurologic exam focalizing to the brainstem. DISCUSSION AND PLAN: The patient's neurologic exam is exact same as it was yesterday. As such, we are going to proceed with an MRI of the brain. Pulmonary Critical Care will continue to follow along while she remains in this location. Small adjustments have been made to the mechanical ventilator today to maximize comfort. CRITICAL CARE TIME: 30 minutes. [facility]
--- NOTE | 2018-01-05 15:32 | PDOC.PN ---
- Subjective Encounter Start Date: 01/05/18 Encounter Start Time: 15:00 Subjective: ON VENT, NOT SEDATED, NOT RESPONDING - Objective Resuscitation Status: Resuscitation Status FULL:Full Resuscitation MAR Reviewed: Yes Vital Signs & Weight: Vital Signs (12 hours) Temp Pulse Pulse Pulse Resp BP BP 01/05/18 14:26 84 23 H 01/05/18 14:00 20 01/05/18 12:27 92 165/67 H 01/05/18 12:00 99.0 F 22 H 01/05/18 11:40 100 100 165/67 H 01/05/18 10:00 28 H 01/05/18 08:00 100.0 F H 25 H 01/05/18 06:44 85 119/49 L 01/05/18 06:43 88 24 H 01/05/18 06:00 26 H 01/05/18 04:00 99.2 F 19 BP Pulse Ox Pulse Ox Pulse Ox 01/05/18 14:26 95 01/05/18 14:00 01/05/18 12:27 01/05/18 12:00 01/05/18 11:40 134/67 92 L 91 L 01/05/18 10:00 01/05/18 08:00 98 01/05/18 06:44 01/05/18 06:43 98 01/05/18 06:00 01/05/18 04:00 Weight Admit Weight 179 lb 14.355 oz Weight 188 lb 7.924 oz Most Recent Monitor Data Heart Rate from ECG 90 NIBP 110/75 NIBP BP-Mean 86 Respiration from ECG 22 SpO2 93 I&O: 01/04/18 01/05/18 01/06/18 06:59 06:59 06:59 Intake Total 3728 2172 100 Output Total 3170 3580 655 Balance 865 -1629 -066 Result Diagrams: 01/05/18 03:51 01/05/18 03:51 Additional Labs: Accuchecks 01/05/18 01/05/18 01/04/18 11:49 06:40 18:14 POC Glucose 193 H 144 H 225 H Phys Exam - Physical Examination HEENT: PERRLA, moist MMs, sclera anicteric, TM's clear, oral pharynx no lesions , 2+ tonsils Neck: no nodes, no JVD, supple Respiratory: wheezing present On vent Cardiovascular: RRR, no significant murmur, no rub, gallop Gastrointestinal: soft, non-tender, no distention, positive bowel sounds Musculoskeletal: edema present no response Dx/Plan (1) Acute hypercapnic respiratory failure Code(s): J96.02 - ACUTE RESPIRATORY FAILURE WITH HYPERCAPNIA Status: Acute (2) Acute on chronic respiratory failure with hypercapnia Code(s): J96.22 - ACUTE AND CHRONIC RESPIRATORY FAILURE WITH HYPERCAPNIA Status: Acute Comment: Pt is intubated, in CCU. Hx of COPD with extensive chronic changes. Continue vent support, bronchodilators, steroids and wean as possible. Discussed with Dr. Rodrigues. She chronically debilitated from her lung disease. (3) Fracture of femoral neck, right Code(s): S72.001A - FRACTURE OF UNSP PART OF NECK OF RIGHT FEMUR, INIT Status : Acute Comment: Post-op hemiarthoplasty. (4) Shock Code(s): R57.9 - SHOCK, UNSPECIFIED Status: Acute Comment: Likely septic, from pneumonia. Continue IV dopamine (5) Pneumonia Code(s): J18.9 - PNEUMONIA, UNSPECIFIED ORGANISM Status: Resolved Comment: Levaquin (6) Septic shock Code(s): A41.9 - SEPSIS, UNSPECIFIED ORGANISM; R65.21 - SEVERE SEPSIS WITH SEPTIC SHOCK Status: Resolved Comment: Likley pneumonia source. BP improved. (7) Acute and chronic respiratory failure Code(s): J96.20 - ACUTE AND CHR RESP FAILURE, UNSP W HYPOXIA OR HYPERCAPNIA Status: Acute - Plan DVT proph w/SCDs * .
[2018-01-05] MEDS ORDERED: Sodium Chloride 0.9% 1,000 ML IV SCH (22:30)
[2018-01-06] MEDS: Furosemide 20 MG/2 ML VIAL SLOW IVP SCH (05:07)
[2018-01-06] MEDS: HumaLOG 300 UNITS/3 ML VIAL SC PRN ×3 (05:14→16:28)
[2018-01-06 05:42] LABS: Hemoglobin 9.8 g/dL (12.0-16.0); Mean Corpuscular HGB CONC 33.2 g/dL (32.0-36.0); Mean Corpuscular Hemoglobin 31.8 pg (27.0-31.0); Mean Corpuscular Volume 95.9 fL (78.0-98.0); Mean Platelet Volume 7.7 fL (7.4-10.4); Platelet Count 310 thou/uL (130-400); RBC Distribution Width 14.6 % (11.5-14.5); Red Blood Cell (RBC) Count 3.06 mill/uL (4.20-5.40)
[2018-01-06 05:47] LABS: Band 16 % (5-11); Lymphocytes 3 % (21-51); MDiff Complete? YES; Monocytes 2 % (0-10); Myelocyte 1 % (0-0); Neutrophil 78 % (42-75)
[2018-01-06 06:04] LABS: ALT (SGPT) 66 U/L (8-55); AST (SGOT) 46 U/L (5-34); Albumin 2.9 g/dL (3.4-4.8); Alkaline Phosphatase 118 U/L (40-150); Anion Gap 13 mmol/L (10-20); BUN (Urea Nitrogen) 41 mg/dL (9.8-20.1); Bilirubin, Total 0.7 mg/dL (0.2-1.2); Calc. Creatinine Clearance 102 mL/min (70-130); Calcium 9.5 mg/dL (7.8-10.44); Carbon Dioxide 31 mmol/L (23-31); Chloride 101 mmol/L (98-107); Estimated GFR-MDRD 86; Globulin 2.8 g/dL (2.4-3.5); Glucose 182 mg/dL (80-115); Potassium 4.2 mmol/L (3.5-5.1); Protein, Total 5.7 g/dL (6.0-8.3); Sodium 141 mmol/L (136-145)
[2018-01-06] MEDS: Enoxaparin Sodium 40 MG/0.4 ML SYRINGE SC SCH (08:51)
[2018-01-06] MEDS: Famotidine/PF 20 mg/2ml Vial SLOW IVP SCH ×2 (08:51→20:28)
--- NOTE | 2018-01-06 08:55 | PDOC.PN ---
- Subjective Encounter Start Date: 01/06/18 Encounter Start Time: 08:53 Subjective: non-responsive - Objective Resuscitation Status: Resuscitation Status FULL:Full Resuscitation MAR Reviewed: Yes Vital Signs & Weight: Vital Signs (12 hours) Temp Pulse Resp BP Pulse Ox 01/06/18 06:29 118 H 101/71 01/06/18 06:24 117 H 31 H 95 01/06/18 06:00 100.6 F H 31 H 01/06/18 04:00 98.2 F 30 H 01/06/18 02:12 110 H 01/06/18 02:00 29 H 01/06/18 00:00 98.3 F 29 H 01/05/18 23:33 88 25 H 94 L 01/05/18 22:17 86 01/05/18 22:00 24 H Weight Admit Weight 179 lb 14.355 oz Weight 183 lb 3.266 oz Most Recent Monitor Data Heart Rate from ECG 117 NIBP 101/71 NIBP BP-Mean 81 Respiration from ECG 32 SpO2 95 I&O: 01/05/18 01/06/18 01/07/18 06:59 06:59 06:59 Intake Total 2172 1894 Output Total 3580 3880 [facility] -1407 Result Diagrams: 01/06/18 05:10 01/06/18 05:10 Additional Labs: Accuchecks 01/06/18 01/06/18 01/05/18 05:14 00:50 17:02 POC Glucose 175 H 179 H 226 H 01/05/18 11:49 POC Glucose 193 H Phys Exam - Physical Examination pupils 5mm, fixed Neck: no JVD coarse BS with rhonchi Cardiovascular: RRR, no significant murmur Gastrointestinal: soft, positive bowel sounds Musculoskeletal: edema present Neurological: non-focal Dx/Plan (1) Encephalopathy acute Code(s): G93.40 - ENCEPHALOPATHY, UNSPECIFIED Status: Acute (2) Acute on chronic respiratory failure with hypercapnia Code(s): J96.22 - ACUTE AND CHRONIC RESPIRATORY FAILURE WITH HYPERCAPNIA Status: Acute Comment: Pt is intubated, in CCU. Hx of COPD with extensive chronic changes. Continue vent support, bronchodilators, steroids and wean as possible. Discussed with Dr. Rodrigues. She chronically debilitated from her lung disease. (3) Fall Code(s): W19.XXXA - UNSPECIFIED FALL, INITIAL ENCOUNTER Status: Acute Comment: resultant femoral neck fracture (4) Fracture of femoral neck, right Code(s): S72.001A - FRACTURE OF UNSP PART OF NECK OF RIGHT FEMUR, INIT Status : Acute Comment: Post-op hemiarthoplasty. (5) Pneumonia Code(s): J18.9 - PNEUMONIA, UNSPECIFIED ORGANISM Status: Resolved Comment: Levaquin (6) COPD with exacerbation Code(s): J44.1 - CHRONIC OBSTRUCTIVE PULMONARY DISEASE W (ACUTE) EXACERBATION Status: Acute Comment: Steroids, nebs. (7) Hypertension Code(s): I10 - ESSENTIAL (PRIMARY) HYPERTENSION Status: Chronic Comment: Meds held. - Plan +MRI brain? today -: cont vent, nebs, etc -: discuss with intesivist * .
[2018-01-06] MEDS ORDERED: Acetaminophen 650 MG Suppository PR PRN (09:15)
[2018-01-06] MEDS: Norepinephrine 8 MG/250 ML BAG IVPB PRN (10:08)
[2018-01-06] MEDS ORDERED: Sodium Chloride 0.9% 1,000 ML IV SCH (10:30)
[2018-01-06] MEDS ORDERED: Gadobenate Dimeglumine 529 MG/1 ML (20ML VIAL) ONE (12:37)
[2018-01-06] MEDS: Sodium Chloride 0.45% 1,000 ML IV SCH ×4 (13:17→23:54)
[2018-01-06] MEDS: Meropenem 2 GM, Admixture Fee 1 EACH in Sodium Chloride 0.9% 100 ML IVPB SCH ×2 (13:19→22:58)
--- NOTE | 2018-01-06 14:12 | MRI ---
MRI BRAIN WITH AND WITHOUT CONTRAST: DATE: 01/06/18 HISTORY: 67-year-old female with altered mental status. COMPARISON: No prior MRIs. There is a noncontrast CT of 12/25/17. TECHNIQUE: Multiple sequences obtained in axial, sagittal, and coronal planes; pre and post IV injection of gado linium-based contrast agent: 10 mL MultiHance. FINDINGS: Previous recent CT demonstrated small to moderate sized old infarctions in the left upper parietal re gion, a tiny one in right upper parietal cortex, and a small old infarction in the inferior aspect of the left cerebellar hemisphere in the left PICA territory. This MRI demonstrates a new finding of intra-axial heterogeneous T2 hyperintensity involving large po rtions of the left frontal and left parietal lobes, which have heterogeneously moderately restricted diffusion, consistent with cytotoxic edema. This restricted diffusion and cytotoxic edema extends to involve the posterior limb of the left internal capsule, left cerebral peduncle of the midbrain, and down to the left side of the upper freedom. The left cerebral lesion also involves the mesial left temporal lobe structures. It causes mass effec t, with effacement of sulci, throughout much of the upper 2/3 of the left cerebral hemisphere. There is another new finding of extrinsic compression and distortion of the lateral ventricles and third ve ntricle. Causing a left to right midline shift of the septum pellucidum a distance of 0.7 cm. There i s patchy faint and moderate, ill-defined enhancement of most of this large left cerebral hemispheric involved regions of the cytotoxic edema. There is extensive gyriform T1 hyperintensity throughout much of the upper portions of the left cereb ral hemisphere. There is also magnetic susceptibility artifact scattered throughout these regions, al l consistent with extensive petechial hemorrhages. There are multiple small and tiny patchy foci of mildly restricted diffusion scattered throughout muc h of the contralateral right frontal and parietal lobes. A few much smaller, patchy such lesions with restricted diffusion and ill-defined margins are present in the right middle cerebellar peduncle (brachium pontis), adjacent portion of right cerebellar deandre sphere, and contralateral left cerebellar hemisphere. Although normal flow signal voids are maintained in the left carotid siphon, the M1 segment of the le ft middle cerebral artery is not well visualized, and may be occluded. Furthermore, the contralateral right carotid siphon has absence of the normal flow signal void, proba rosario representing chronic occlusion. There is demonstration of blood flow in the proximal portions of the right middle cerebral artery, including M1 segment and branches. There are bilateral mastoid effusions. IMPRESSION: 1. 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 2. This is associated with mass effect, subfalcine herniation, and extensive petechial hemorrhage. 3. Multiple subacute small infarctions in the contralateral right posterior fossa and patchy such ar eas in the right cerebral hemisphere. 4. 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 KHANH Orozco POS: DIANE
--- NOTE | 2018-01-06 14:34 | RAD ---
CHEST 1 VIEW: HISTORY: Ventilated patient. Fever. COMPARISON: Radiograph 01/01/2018. FINDINGS: Right IJ central venous catheter. The tip is in good position. Endotracheal tube tip is in good pos ition below the clavicles. Enteric tube tip below the diaphragm out of the field of view. There are patchy airspace opacities i n both lower lobes as well as left upper and left middle lobe. IMPRESSION: Progressive patchy left-sided and bibasilar airspace opacity concerning for multifocal infection or a spiration. POS: [facility]
--- NOTE | 2018-01-06 15:07 | PRG ---
DATE OF SERVICE: 01/06/2018 SUBJECTIVE: Ms. Askew has not improved neurologically over the weekend. She has become febrile this morning. Cultures have been drawn. Antibiotics have been started. PHYSICAL EXAMINATION: GENERAL: She weakly open her eyes to sternal rub. Her pupils are sluggish. She is not spontaneously moving anything and the sedation has been held now for several days. LUNGS: Remarkable for coarse equal breath sounds. HEART: Regular rhythm. ABDOMEN: Soft. EXTREMITIES: Without asymmetry. All 4 extremities are mildly edematous. IMPRESSION: ? mid brain or posterior circulation cerebrovascular accident versus massive cortical cerebrovascular accident. I cant imagine that she has meningitis leading to her persistent encephalopathy. It would be unlikely that she has encephalitis as well. I have ordered an MRI with and without contrast today. I will make further recommendations after that. Her prognosis is obviously quite guarded and she clearly will not wean from mechanical ventilation without a tracheostomy. She would need a PEG as well. Palliative Care Saturday apparently met with family. There is a granddaughter I am told that is very verbally aggressive. They claimed that no one is talking to them and no one has done anything for their mother, but it is also noted that I have never seen family at the bedside during the day and I am not aware of them coming at night. ÁNGEL
--- NOTE | 2018-01-06 16:58 | EKG ---
Test Reason : SOB Blood Pressure : / mmHG Vent. Rate : 115 BPM Atrial Rate : 115 BPM P-R Int : 134 ms QRS Dur : 068 ms QT Int : 322 ms P-R-T Axes : 078 096 079 degrees QTc Int : 445 ms Sinus tachycardia Possible Left atrial enlargement Rightward axis Anteroseptal infarct , age undetermined Abnormal ECG Confirmed by ANTONIO LEYVA, ALLYN ([id number]), school photograph editor LIAT GRAVES ([id number]) on 01/06/2018 4:58:07 PM Referred By: Confirmed By:ALLYN ALVAREZ MD
[2018-01-06] MEDS: Vancomycin HCl 1 GM in Premix Bag 1 BAG IVPB SCH (20:28)
[2018-01-07] MEDS: Norepinephrine 8 MG/250 ML BAG IVPB PRN ×2 (04:47→20:35)
[2018-01-07 05:04] LABS: ALT (SGPT) 47 U/L (8-55); AST (SGOT) 28 U/L (5-34); Albumin 2.4 g/dL (3.4-4.8); Alkaline Phosphatase 91 U/L (40-150); Anion Gap 9 mmol/L (10-20); BUN (Urea Nitrogen) 36 mg/dL (9.8-20.1); Bilirubin, Total 0.8 mg/dL (0.2-1.2); Calc. Creatinine Clearance 116 mL/min (70-130); Calcium 8.8 mg/dL (7.8-10.44); Carbon Dioxide 31 mmol/L (23-31); Chloride 101 mmol/L (98-107); Estimated GFR-MDRD Greater than 90; Globulin 2.6 g/dL (2.4-3.5); Glucose 166 mg/dL (80-115); Potassium 3.5 mmol/L (3.5-5.1); Sodium 137 mmol/L (136-145)
[2018-01-07] MEDS: Meropenem 2 GM, Admixture Fee 1 EACH in Sodium Chloride 0.9% 100 ML IVPB SCH ×3 (05:17→20:36)
[2018-01-07] MEDS: Furosemide 20 MG/2 ML VIAL SLOW IVP SCH (05:17)
[2018-01-07] MEDS: HumaLOG 300 UNITS/3 ML VIAL SC PRN ×3 (05:30→18:10)
[2018-01-07 05:35] LABS: Mean Corpuscular Hemoglobin 29.5 pg (27.0-31.0); Mean Corpuscular Volume 95.2 fL (78.0-98.0); Mean Platelet Volume 7.4 fL (7.4-10.4); Platelet Count 278 thou/uL (130-400); RBC Distribution Width 14.3 % (11.5-14.5); Red Blood Cell (RBC) Count 2.72 mill/uL (4.20-5.40); White Blood Cell (WBC) Count 23.7 thou/uL (4.8-10.8)
--- NOTE | 2018-01-07 08:19 | PDOC.PN ---
- Subjective Encounter Start Date: 01/07/18 Encounter Start Time: 08:16 Subjective: non-responsive - Objective Resuscitation Status: Resuscitation Status FULL:Full Resuscitation MAR Reviewed: Yes Vital Signs & Weight: Vital Signs (12 hours) Temp Pulse Resp BP Pulse Ox 01/07/18 08:00 25 H 01/07/18 06:39 102 H 120/49 L 01/07/18 06:37 92 23 H 99 01/07/18 06:00 25 H 01/07/18 04:00 99.3 F 23 H 01/07/18 02:11 94 119/45 L 01/07/18 02:00 25 H 01/07/18 00:07 98 27 H 100 01/07/18 00:00 99.9 F H 28 H 01/06/18 22:00 91 23 H 127/49 L Weight Admit Weight 179 lb 14.355 oz Weight 189 lb 13.088 oz Most Recent Monitor Data Heart Rate from ECG 100 NIBP 109/46 NIBP BP-Mean 67 Respiration from ECG 25 SpO2 99 I&O: 01/06/18 01/07/18 01/08/18 06:59 06:59 06:59 Intake Total 1894 4357 Output Total 3880 1865 500 Balance -1986 2492 -500 Result Diagrams: 01/07/18 04:23 01/07/18 04:23 Additional Labs: Accuchecks 01/07/18 01/06/18 01/06/18 05:29 23:38 16:27 POC Glucose 163 H 190 H 255 H 01/06/18 10:57 POC Glucose 193 H Radiology Reviewed by me: Yes (cxr- LLL pna) EKG Reviewed by me: Yes (MRI-Large LMCA,infarct) Phys Exam - Physical Examination Neck: no JVD decreased BS, rales LLL Cardiovascular: RRR, no significant murmur Gastrointestinal: soft, positive bowel sounds Musculoskeletal: edema present Dx/Plan (1) Encephalopathy acute Code(s): G93.40 - ENCEPHALOPATHY, UNSPECIFIED Status: Acute (2) Acute on chronic respiratory failure with hypercapnia Code(s): J96.22 - ACUTE AND CHRONIC RESPIRATORY FAILURE WITH HYPERCAPNIA Status: Acute Comment: Pt is intubated, in CCU. Hx of COPD with extensive chronic changes. Continue vent support, bronchodilators, steroids and wean as possible. Discussed with Dr. Rodrigues. She chronically debilitated from her lung disease. (3) Fall Code(s): W19.XXXA - UNSPECIFIED FALL, INITIAL ENCOUNTER Status: Acute Comment: resultant femoral neck fracture (4) Fracture of femoral neck, right Code(s): S72.001A - FRACTURE OF UNSP PART OF NECK OF RIGHT FEMUR, INIT Status : Acute Comment: Post-op hemiarthoplasty. (5) Pneumonia Code(s): J18.9 - PNEUMONIA, UNSPECIFIED ORGANISM Status: Acute Qualifiers: Pneumonia type: due to Pneumococcus Laterality: left Lung location: lower lobe of lung Qualified Code(s): J13 - Pneumonia due to Streptococcus pneumoniae Comment: [place] (6) COPD with exacerbation Code(s): J44.1 - CHRONIC OBSTRUCTIVE PULMONARY DISEASE W (ACUTE) EXACERBATION Status: Acute Comment: Steroids, nebs. (7) Hypertension Code(s): I10 - ESSENTIAL (PRIMARY) HYPERTENSION Status: Chronic Comment: Meds held. (8) Cerebrovascular accident (CVA) due to occlusion of middle cerebral artery Code(s): I63.519 - CEREB INFRC D/T UNSP OCCLS OR STENOS OF UNSP MID CEREB ART Status: Acute Qualifiers: Laterality of affected vessel: left Qualified Code(s): I63.512 - Cerebral infarction due to unspecified occlusion or stenosis of left middle cerebral artery - Plan on iv antibx for seis/PNA -: vent dependent rewspiratory failure -: start ASA for CVA, risk of hemorrhagic conversion * .
[2018-01-07 08:25] LABS: Band 28 % (5-11); Lymphocytes 1 % (21-51); MDiff Complete? YES; Monocytes 2 % (0-10); Neutrophil 68 % (42-75); PLT Morphology Comment Appears Adequate; Polychromasia SLIGHT = 2-3 cells (100X) (0-2/hpf); RBC Morphology Normal; Reactive Lymphocytes 1 % (0-10); Toxic Granulation SLIGHT
--- NOTE | 2018-01-07 08:35 | RAD ---
CHEST ONE VIEW: Indication: Intubation. Comparison: 01-06-18 FINDINGS: Patchy opacities within both lung bases persist. ET tube gastric catheter in the right IJ central caitlin ous catheter unchanged. No pneumothorax is evident. IMPRESSION: Persistent pneumonia. POS: [facility]
[2018-01-07] MEDS: Vancomycin HCl 1 GM in Premix Bag 1 BAG IVPB SCH ×2 (08:42→20:27)
[2018-01-07] MEDS: Famotidine/PF 20 mg/2ml Vial SLOW IVP SCH ×2 (08:43→20:27)
[2018-01-07] MEDS: Sodium Chloride 0.45% 1,000 ML IV SCH ×2 (08:43→12:11)
[2018-01-07] MEDS: Enoxaparin Sodium 40 MG/0.4 ML SYRINGE SC SCH (08:43)
[2018-01-07] MEDS ORDERED: Digoxin 0.5 MG/2 ML AMP ONE (11:45)
[2018-01-07] MEDS ORDERED: Digoxin 0.5 MG/2 ML AMP SLOW IVP SCH (12:00)
[2018-01-07] MEDS: Diltiazem 125 MG in Sodium Chloride 0.9% 100 ML IVPB SCH (12:20)
--- NOTE | 2018-01-07 13:47 | PRG ---
DATE OF SERVICE: 01/07/2018 Ms. Askew as expected has not improved neurologically. She has developed rapid atrial fibrillatio n today. She is now on a Cardizem drip. PHYSICAL EXAMINATION: VITAL SIGNS: Her blood pressure is 110/56, respiratory rate in the high 20s, oximetry is 99%. LUNGS: Remarkable for faint wheezes. HEART: Irregular rhythm, rapid rate. ABDOMEN: Soft and nontender. EXTREMITIES: Without edema. NEURO: She really does not respond to sternal rub today. She has slight asymmetry of her pupils.. LABORATORY DATA: White count 23.7, hemoglobin 8.0, platelets 278,000. Sodium 137, potassium 3.5, chloride 101, bicarbonate 31, BUN 36, creatinine 0.6. Family called while I was at the bedside. I talked to her daughter by phone and explained to her jerrod t Ms. Askew has had a devastating stroke that she will succumb to. She cannot recover from this, especially with her other medical problems. I have encouraged her to get the family together make a decision to consider withdrawing care.
[2018-01-08] MEDS: HumaLOG 300 UNITS/3 ML VIAL SC PRN ×2 (00:21→18:00)
[2018-01-08] MEDS: Sodium Chloride 0.45% 1,000 ML IV SCH ×2 (00:22→17:59)
[2018-01-08] MEDS: Meropenem 2 GM, Admixture Fee 1 EACH in Sodium Chloride 0.9% 100 ML IVPB SCH ×3 (05:00→21:10)
[2018-01-08] MEDS: Furosemide 20 MG/2 ML VIAL SLOW IVP SCH (05:00)
[2018-01-08 05:16] LABS: Band 17 % (5-11); Lymphocytes 2 % (21-51); MDiff Complete? YES; Mean Corpuscular HGB CONC 31.1 g/dL (32.0-36.0); Mean Corpuscular Hemoglobin 29.9 pg (27.0-31.0); Mean Corpuscular Volume 96.1 fL (78.0-98.0); Mean Platelet Volume 7.6 fL (7.4-10.4); Monocytes 3 % (0-10); Neutrophil 78 % (42-75); Platelet Count 272 thou/uL (130-400); RBC Distribution Width 14.1 % (11.5-14.5); Red Blood Cell (RBC) Count 2.67 mill/uL (4.20-5.40); White Blood Cell (WBC) Count 20.5 thou/uL (4.8-10.8)
[2018-01-08 05:23] LABS: ALT (SGPT) 47 U/L (8-55); AST (SGOT) 32 U/L (5-34); Albumin 2.5 g/dL (3.4-4.8); Alkaline Phosphatase 101 U/L (40-150); Anion Gap 8 mmol/L (10-20); BUN (Urea Nitrogen) 30 mg/dL (9.8-20.1); Bilirubin, Total 0.6 mg/dL (0.2-1.2); Calc. Creatinine Clearance 129 mL/min (70-130); Calcium 8.9 mg/dL (7.8-10.44); Carbon Dioxide 31 mmol/L (23-31); Chloride 104 mmol/L (98-107); Estimated GFR-MDRD Greater than 90; Globulin 2.7 g/dL (2.4-3.5); Glucose 144 mg/dL (80-115); Potassium 3.6 mmol/L (3.5-5.1); Protein, Total 5.2 g/dL (6.0-8.3); Sodium 139 mmol/L (136-145)
--- NOTE | 2018-01-08 08:16 | PDOC.PN ---
- Subjective Encounter Start Date: 01/08/18 Encounter Start Time: 08:11 Subjective: UNRESPONSIVE - Objective Resuscitation Status: Resuscitation Status FULL:Full Resuscitation MAR Reviewed: Yes Vital Signs & Weight: Vital Signs (12 hours) Temp Pulse Resp BP Pulse Ox 01/08/18 06:52 82 128/55 L 01/08/18 06:51 83 26 H 99 01/08/18 06:00 22 H 01/08/18 04:00 26 H 01/08/18 03:00 98.2 F 01/08/18 02:03 89 108/42 L 01/08/18 02:00 21 H 01/08/18 00:25 85 17 97 01/08/18 00:00 22 H 01/07/18 23:00 98.1 F 01/07/18 22:23 88 115/55 L 01/07/18 22:00 26 H Weight Admit Weight 179 lb 14 oz Weight 190 lb 7.67 oz Most Recent Monitor Data Heart Rate from ECG 94 NIBP 137/46 NIBP BP-Mean 76 Respiration from ECG 25 SpO2 97 I&O: 01/07/18 01/08/18 01/09/18 06:59 06:59 06:59 Intake Total 4357 4240 Output Total 1865 3180 Balance 2492 1060 Result Diagrams: 01/08/18 04:35 01/08/18 04:35 Additional Labs: Accuchecks 01/08/18 01/08/18 01/07/18 04:43 00:06 18:09 POC Glucose 142 H 169 H 231 H 01/07/18 10:24 POC Glucose 214 H Radiology Reviewed by me: Yes (cxr-LLL PNA) Phys Exam - Physical Examination PUPILS FIXED COARSE bs WITH RALES IN LLL Cardiovascular: RRR, no significant murmur Gastrointestinal: soft, positive bowel sounds Musculoskeletal: edema present Dx/Plan (1) Encephalopathy acute Code(s): G93.40 - ENCEPHALOPATHY, UNSPECIFIED Status: Acute (2) Acute on chronic respiratory failure with hypercapnia Code(s): J96.22 - ACUTE AND CHRONIC RESPIRATORY FAILURE WITH HYPERCAPNIA Status: Acute Comment: Pt is intubated, in CCU. Hx of COPD with extensive chronic changes. Continue vent support, bronchodilators, steroids and wean as possible. Discussed with Dr. Rodrigues. She chronically debilitated from her lung disease. (3) Fall Code(s): W19.XXXA - UNSPECIFIED FALL, INITIAL ENCOUNTER Status: Acute Comment: resultant femoral neck fracture (4) Fracture of femoral neck, right Code(s): S72.001A - FRACTURE OF UNSP PART OF NECK OF RIGHT FEMUR, INIT Status : Acute Comment: Post-op hemiarthoplasty. (5) Pneumonia Code(s): J18.9 - PNEUMONIA, UNSPECIFIED ORGANISM Status: Acute Qualifiers: Pneumonia type: due to Pneumococcus Laterality: left Lung location: lower lobe of lung Qualified Code(s): J13 - Pneumonia due to Streptococcus pneumoniae Comment: Gerson (6) COPD with exacerbation Code(s): J44.1 - CHRONIC OBSTRUCTIVE PULMONARY DISEASE W (ACUTE) EXACERBATION Status: Acute Comment: Steroids, nebs. (7) Hypertension Code(s): I10 - ESSENTIAL (PRIMARY) HYPERTENSION Status: Chronic Comment: Meds held. (8) Cerebrovascular accident (CVA) due to occlusion of middle cerebral artery Code(s): I63.519 - CEREB INFRC D/T UNSP OCCLS OR STENOS OF UNSP MID CEREB ART Status: Acute Qualifiers: Laterality of affected vessel: left Qualified Code(s): I63.512 - Cerebral infarction due to unspecified occlusion or stenosis of left middle cerebral artery - Plan cont nutrition. VENT dependent. onpreesors. iv antibx -: prognosi poor , in discussion with level of care with family * .
--- NOTE | 2018-01-08 08:19 | RAD ---
PORTABLE UPRIGHT FRONTAL CHEST RADIOGRAPH: Date: 01-08-18 Comparison: 01-07-18 History: Ventilated patient. FINDINGS: Stable endotracheal tube, nasogastric tube, and right sided vascular catheter. Lungs are hyperinflated with increased linear interstitial densities suggesting underlying emphysemat ous change/COPD. There are asymmetric increased linear densities noted in the inferior lateral right lung base as well as within the lateral aspect of the left upper lobe and within the left lower lobe region. This includes focal opacity within the lateral aspect of the left lung base. The focal areas of increased density within the lung bases, particularly on the left, have developed since the 8 examination, suggesting infectious pneumonitis or aspiration. IMPRESSION: Findings suggesting underlying COPD. Superimposed increased density in the lung bases, left greater t arita right, may signify superimposed infectious pneumonitis/aspiration. Follow up to resolution advise d. POS: [facility]
[2018-01-08 08:25] LABS: Vancomycin, Trough 14.3 ug/mL
--- NOTE | 2018-01-08 09:24 | EEG ---
Referring Physician: Raheem AYALA EEG # [id number] TEST TYPE: ROUTINE PORTABLE INPATIENT REPORT: AN EEG USING THE INTERNATIONAL TEN-TWENTY SYSTEM OF ELECTRODE PLACEMENT WAS PERFORMED. The background activity consists of diffuse slowing in the 5-7 hertz range as well as some suppressed background activity. Photic stimulation was unremarkable. No epileptiform features were seen. IMPRESSION: THIS IS AN ABNORMAL STUDY FOR THE FINDINGS OF DIFFUSE SLOWING CONSISTENT WITH A DIFFUSE ENCEPHALOPATHIC PROCESS. Banana Handler: [place] Plasma Table Operator: EEG.[email or web address] NEAL
--- NOTE | 2018-01-08 09:28 | EEG ---
Referring Physician: Nora CABRERA EEG # [id number] TEST TYPE: STAT PORTABLE INPATIENT REPORT: AN EEG USING THE INTERNATIONAL TEN-TWENTY SYSTEM OF ELECTRODE PLACEMENT WAS PERFORMED. The best background is a 9 hertz alpha frequency. There is some mixed frequency slowing seen intermittently. Photic stimulation was unremarkable. No epileptiform features were noted. IMPRESSION: THIS IS AN ESSENTIALLY NORMAL EEG. Manufacturing Management Associate: [place] Rail Walker: EEG.MSSri NEAL
[2018-01-08] MEDS: Famotidine/PF 20 mg/2ml Vial SLOW IVP SCH ×2 (09:35→20:08)
[2018-01-08] MEDS: Enoxaparin Sodium 40 MG/0.4 ML SYRINGE SC SCH (09:35)
[2018-01-08] MEDS: Vancomycin HCl 1 GM in Premix Bag 1 BAG IVPB SCH ×2 (09:35→20:08)
--- NOTE | 2018-01-08 12:27 | PRG ---
DATE OF SERVICE: 01/08/2018 Still no family has attended at the bedside, even though they were given bad news by phone yesterday. PHYSICAL EXAMINATION: VITAL SIGNS: Blood pressure 131/56, heart rate 82, respiratory rate is 23. HEENT: Her pupils are sluggish and only slightly asymmetrical. LUNGS: Her lungs are clear. HEART: Regular rhythm. S1 and S2 are normal. ABDOMEN: Soft. She went into atrial fibrillation yesterday. LABORATORY DATA: White count is 20.5, hemoglobin 8.0, platelets 272,000. Sodium 139, potassium 3.6, chloride 104, bicarbonate 31, BUN 30, creatinine 0.56. Repeat EEG did not show any seizure activity. The audiovisual tech reported less activity in the left hemisp here. This was not in the report. IMPRESSION: 1. Massive thrombotic cerebrovascular accident. 2. Status post hip fracture repair. 3. Very severe chronic obstructive pulmonary disease with deconditioning. I see no reason to recommend a tracheostomy in this situation. Comfort care in my opinion is the bes t option. The son was contacted by phone this morning by Palliative Care, said he could not come tod , but he would try to be here between 10:30 and 11 tomorrow. I will be happy to meet with him.
[2018-01-08] MEDS: Diltiazem 125 MG in Sodium Chloride 0.9% 100 ML IVPB SCH (13:15)
[2018-01-08] MEDS: Norepinephrine 8 MG/250 ML BAG IVPB PRN (22:39)
[2018-01-09] MEDS: HumaLOG 300 UNITS/3 ML VIAL SC PRN ×3 (00:50→16:17)
[2018-01-09 04:39] LABS: ALT (SGPT) 53 U/L (8-55); AST (SGOT) 34 U/L (5-34); Albumin 2.5 g/dL (3.4-4.8); Alkaline Phosphatase 106 U/L (40-150); Anion Gap 11 mmol/L (10-20); BUN (Urea Nitrogen) 28 mg/dL (9.8-20.1); Bilirubin, Total 0.5 mg/dL (0.2-1.2); Calc. Creatinine Clearance 132 mL/min (70-130); Calcium 9.1 mg/dL (7.8-10.44); Carbon Dioxide 30 mmol/L (23-31); Chloride 103 mmol/L (98-107); Estimated GFR-MDRD Greater than 90; Glucose 146 mg/dL (80-115); Potassium 3.6 mmol/L (3.5-5.1); Protein, Total 5.5 g/dL (6.0-8.3); Sodium 140 mmol/L (136-145)
[2018-01-09 05:05] LABS: Hemoglobin 8.2 g/dL (12.0-16.0); Hypochromia SLIGHT = 6-15 cells (100X) (0-5/hpf); Lymphocytes 4 % (21-51); MDiff Complete? YES; Mean Corpuscular Hemoglobin 29.7 pg (27.0-31.0); Mean Corpuscular Volume 95.8 fL (78.0-98.0); Mean Platelet Volume 7.6 fL (7.4-10.4); Monocytes 1 % (0-10); Neutrophil 95 % (42-75); PLT Morphology Comment Appears Adequate; Platelet Count 309 thou/uL (130-400); Polychromasia SLIGHT = 2-3 cells (100X) (0-2/hpf); Red Blood Cell (RBC) Count 2.77 mill/uL (4.20-5.40); White Blood Cell (WBC) Count 15.3 thou/uL (4.8-10.8)
[2018-01-09] MEDS: Furosemide 20 MG/2 ML VIAL SLOW IVP SCH (05:53)
[2018-01-09] MEDS: Sodium Chloride 0.45% 1,000 ML IV SCH ×3 (05:53→20:15)
[2018-01-09 06:05] VITALS: BMI 31.6
[2018-01-09] MEDS: Meropenem 2 GM, Admixture Fee 1 EACH in Sodium Chloride 0.9% 100 ML IVPB SCH ×3 (07:47→21:40)
--- NOTE | 2018-01-09 08:24 | RAD ---
CHEST 1 VIEW: INDICATION: Intubation. COMPARISON: Prior exam dated 01/08/2018 at 4:13 a.m. FINDINGS: Chronic lung changes are stable. The patchy interstitial and airspace opacities within the right low er lobe and left lung are stable. No definite pleural effusion or pneumothorax is evident. Mild car diomegaly is unchanged. Right subclavian central venous catheter is similar-appearing. Osseous stru ctures are unchanged. IMPRESSION: Stable exam. POS: [facility]
[2018-01-09] MEDS: Famotidine/PF 20 mg/2ml Vial SLOW IVP SCH ×2 (09:16→20:15)
[2018-01-09] MEDS: Vancomycin HCl 1 GM in Premix Bag 1 BAG IVPB SCH (09:16)
[2018-01-09] MEDS: Enoxaparin Sodium 40 MG/0.4 ML SYRINGE SC SCH (09:16)
--- NOTE | 2018-01-09 12:58 | PRG ---
DATE OF SERVICE: 01/09/2018 She is opening her eyes more, but she is not cooperating with any type of commands. PHYSICAL EXAMINATION: VITAL SIGNS: Heart rate 74, blood pressure 122/50, respiratory rate in the 20s. LUNGS: Remarkable for distant breath sounds. CARDIOVASCULAR: Regular rhythm. ABDOMEN: Soft. LABORATORY: White count 15.3, hemoglobin 8.2, platelets 309,000. Sodium 140, potassium 3.6, chlorid e 103, bicarbonate 30, BUN 28, creatinine 0.55. Chest radiograph is unchanged. Blood cultures 1 out of 2 with coag negative staph. Her vancomycin will be stopped. IMPRESSION: 1. Respiratory failure associated with chronic obstructive pulmonary disease exacerbation. 2. Hip fracture complicated by a thrombotic cerebrovascular accident. Her son did not show up for t he meeting and the daughter told me he was not coming. The daughter, after I explained everything, w as very polite and left and said she had to go back to work. She stated that she would make all the decisions. Palliative care is trying to contact the daughter again to get the code status issues addressed and a lso plan for withdrawal of care. I have explained to the family that she will need a tracheostomy, a feeding tube and need to live in a jail if we are to proceed in an aggressive fashion. I kn ow her quite well from many years of interaction in the office and I do think she would want this and I relayed this to the family. The daughter told me that she would not want that. We will continue to follow.
--- NOTE | 2018-01-09 13:18 | PDOC.PN ---
- Subjective Encounter Start Date: 01/09/18 Encounter Start Time: 07:45 Subjective: awake, does not follow -: is on vent - Objective Resuscitation Status: Resuscitation Status FULL:Full Resuscitation MAR Reviewed: Yes Vital Signs & Weight: Vital Signs (12 hours) Temp Pulse Pulse Pulse Resp BP BP 01/09/18 12:15 74 122/50 L 01/09/18 12:00 17 01/09/18 11:00 97.9 F 01/09/18 10:28 83 98/55 L 01/09/18 10:00 22 H 01/09/18 08:44 69 74 113/47 L 01/09/18 08:00 19 01/09/18 07:13 71 122/64 01/09/18 07:00 97.9 F 01/09/18 06:00 17 01/09/18 04:00 97.8 F 23 H 01/09/18 02:28 72 01/09/18 02:00 25 H BP Pulse Ox Pulse Ox Pulse Ox 01/09/18 12:15 01/09/18 12:00 01/09/18 11:00 01/09/18 10:28 01/09/18 10:00 01/09/18 08:44 115/54 L 99 100 01/09/18 08:00 100 01/09/18 07:13 01/09/18 07:00 01/09/18 06:00 01/09/18 04:00 01/09/18 02:28 01/09/18 02:00 Weight Admit Weight 179 lb 14 oz Weight 184 lb 9.6 oz Most Recent Monitor Data Heart Rate from ECG 80 NIBP 131/56 NIBP BP-Mean 81 Respiration from ECG 24 SpO2 99 I&O: 01/08/18 01/09/18 01/10/18 06:59 06:59 06:59 Intake Total 4240 3889 120 Output Total 3180 3700 1025 Balance 1060 189 -905 Result Diagrams: 01/09/18 04:08 01/09/18 04:08 Additional Labs: Accuchecks 01/09/18 01/09/18 01/09/18 12:19 05:48 00:23 POC Glucose 230 H 146 H 152 H 01/08/18 01/08/18 17:21 14:56 POC Glucose 210 H 213 H Phys Exam - Physical Examination HEENT: PERRLA, sclera anicteric Neck: no JVD, supple Respiratory: no wheezing, no rales Cardiovascular: RRR, no significant murmur Gastrointestinal: soft, non-tender, positive bowel sounds Musculoskeletal: pulses present, edema present is not seen moving any extremities Dx/Plan (1) Acute on chronic respiratory failure with hypercapnia Code(s): J96.22 - ACUTE AND CHRONIC RESPIRATORY FAILURE WITH HYPERCAPNIA Status: Acute (2) Cerebrovascular accident (CVA) due to occlusion of middle cerebral artery Code(s): I63.519 - CEREB INFRC D/T UNSP OCCLS OR STENOS OF UNSP MID CEREB ART Status: Acute Qualifiers: Laterality of affected vessel: left Qualified Code(s): I63.512 - Cerebral infarction due to unspecified occlusion or stenosis of left middle cerebral artery (3) Encephalopathy acute Code(s): G93.40 - ENCEPHALOPATHY, UNSPECIFIED Status: Acute (4) Fracture of femoral neck, right Code(s): S72.001A - FRACTURE OF UNSP PART OF NECK OF RIGHT FEMUR, INIT Status : Acute Comment: Post-op hemiarthoplasty 12/28/2017. (5) Pneumonia Code(s): J18.9 - PNEUMONIA, UNSPECIFIED ORGANISM Status: Acute Qualifiers: Pneumonia type: due to Pneumococcus Laterality: left Lung location: lower lobe of lung Qualified Code(s): J13 - Pneumonia due to Streptococcus pneumoniae (6) COPD with exacerbation Code(s): J44.1 - CHRONIC OBSTRUCTIVE PULMONARY DISEASE W (ACUTE) EXACERBATION Status: Acute Comment: Steroids, nebs. (7) Gastro-esophageal reflux Code(s): K21.9 - GASTRO-ESOPHAGEAL REFLUX DISEASE WITHOUT ESOPHAGITIS Status: Chronic Comment: stable (8) Hypertension Code(s): I10 - ESSENTIAL (PRIMARY) HYPERTENSION Status: Chronic - Plan is on meropenem and vanc -: pt's son did not participate in today's family meeting -: daughter will decide tomorrow and make a decision -: nebs, solumedrol -: has large cva with herniation, encephalopathic, not moving any extre * . Review of Systems - Medications/Allergies Allergies/Adverse Reactions: Allergies Allergy/AdvReac Type Severity Reaction Status Date / Time esomeprazole magnesium Allergy Mild Verified 09/05/12 07:16 [From Nexium] bacitracin Allergy Verified 11/02/12 01:41 [From Neosporin ([id number])] bacitracin zinc Allergy Verified 11/02/12 01:41 [From Neosporin ([id number])] codeine Allergy Verified 09/05/12 06:35 metronidazole [From Flagyl] Allergy Verified 12/11/12 09:58 Metronidazole HCl Allergy Verified 12/11/12 09:58 [From Flagyl] neomycin sulfate Allergy Verified 11/02/12 01:41 [From Neosporin ([id number])] nitrofurantoin Allergy Verified 12/11/12 09:58 [Nitrofurantoin] Penicillins Allergy Verified 09/05/12 06:35 polymyxin B Allergy Verified 11/02/12 01:41 [From Neosporin ([id number])] sulfacetamide sodium Allergy Verified 12/11/12 09:58 [From Sulfamide] Medications: Current Medications Acetaminophen (Tylenol) 650 mg [place] Q6H PRN PRN Reason: Fever > 101 or Mild Pain Last Admin: 01/06/18 09:50 Dose: 650 mg Albuterol/Ipratropium (Duoneb) 3 ml NEB U2IB-NP [facility] Last Admin: 01/09/18 12:14 Dose: 3 ml Bisacodyl (Dulcolax) 10 mg PO DAILYPRN PRN PRN Reason: Constipation Dextrose/Water (Dextrose 50%) 25 gm SLOW IVP PRN PRN PRN Reason: Hypoglycemia Enoxaparin Sodium (Lovenox) 40 mg SC 0900 [facility] Last Admin: 01/09/18 09:16 Dose: 40 mg Famotidine (Pepcid) 20 mg SLOW IVP Q12HR [facility] Last Admin: 01/09/18 09:16 Dose: 20 mg Furosemide (Lasix) 20 mg SLOW IVP 0600 [facility] Last Admin: 01/09/18 05:53 Dose: 20 mg Glucagon (Glucagon) 1 mg IM PRN PRN PRN Reason: Hypoglycemia Dextrose/Water (D5w) 1,000 mls @ 0 mls/hr IV .Q0M PRN PRN Reason: Hypoglycemia Sodium Chloride (1/2 Normal Saline) 1,000 mls @ 100 mls/hr IV .Q10H [facility] Last Admin: 01/09/18 11:15 Dose: Not Given Norepinephrine Bitartrate (Levophed) 250 mls @ 0 mls/hr IVPB INF PRN; Protocol PRN Reason: SBP < 90 Last Admin: 01/08/18 22:39 Dose: 250 mls Meropenem 2 gm/ Miscellaneous Medication 1 each/ Sodium Chloride 100 mls @ 100 mls/hr IVPB Q8HR [facility] Last Admin: 01/09/18 07:47 Dose: 100 mls Diltiazem HCl 125 mg/ Sodium (Chloride) 125 mls @ 5 mls/hr IVPB INF [facility] Last Admin: 01/08/18 13:15 Dose: 125 mls Insulin Human Lispro (Humalog) 0 units SC .MILD SLIDING SCALE PRN PRN Reason: Mild Correctional Scale Last Admin: 01/09/18 12:25 Dose: 3 unit Insulin Human Lispro (Humalog) 0 units SC .BEDTIME SLIDING SC PRN PRN Reason: Bedtime Correctional Scale Methylprednisolone Sodium Succinate (Solu-Medrol) 40 mg IVP DAILY [facility] Last Admin: 01/09/18 09:16 Dose: 40 mg Mineral Oil/White Petrolatum (Lacri-Lube Ointment) 0 gm EA EYE PRN PRN PRN Reason: Dry Eyes Sodium Chloride (Flush - Normal Saline) 10 ml IVF Q12HR [facility] Last Admin: 01/09/18 09:17 Dose: 10 ml Sodium Chloride (Flush - Normal Saline) 10 ml IVF PRN PRN PRN Reason: Saline Flush
[2018-01-09] MEDS: Diltiazem 125 MG in Sodium Chloride 0.9% 100 ML IVPB SCH (14:17)
[2018-01-10] MEDS: HumaLOG 300 UNITS/3 ML VIAL SC PRN ×4 (00:09→21:02)
[2018-01-10 04:53] LABS: Band 10 % (5-11); Hemoglobin 8.7 g/dL (12.0-16.0); Lymphocytes 1 % (21-51); MDiff Complete? YES; Mean Corpuscular HGB CONC 31.2 g/dL (32.0-36.0); Mean Corpuscular Hemoglobin 29.4 pg (27.0-31.0); Mean Corpuscular Volume 94.1 fL (78.0-98.0); Mean Platelet Volume 7.5 fL (7.4-10.4); Monocytes 3 % (0-10); Neutrophil 86 % (42-75); PLT Morphology Comment Appears Adequate; Platelet Count 356 thou/uL (130-400); RBC Distribution Width 14.3 % (11.5-14.5); Red Blood Cell (RBC) Count 2.97 mill/uL (4.20-5.40); White Blood Cell (WBC) Count 13.6 thou/uL (4.8-10.8)
[2018-01-10 04:57] LABS: ALT (SGPT) 59 U/L (8-55); AST (SGOT) 37 U/L (5-34); Albumin 2.6 g/dL (3.4-4.8); Alkaline Phosphatase 113 U/L (40-150); Anion Gap 10 mmol/L (10-20); BUN (Urea Nitrogen) 32 mg/dL (9.8-20.1); Bilirubin, Total 0.6 mg/dL (0.2-1.2); Calc. Creatinine Clearance 128 mL/min (70-130); Calcium 9.1 mg/dL (7.8-10.44); Carbon Dioxide 32 mmol/L (23-31); Chloride 103 mmol/L (98-107); Estimated GFR-MDRD Greater than 90; Globulin 3.1 g/dL (2.4-3.5); Glucose 137 mg/dL (80-115); Potassium 3.9 mmol/L (3.5-5.1); Protein, Total 5.7 g/dL (6.0-8.3); Sodium 141 mmol/L (136-145)
[2018-01-10] MEDS: Meropenem 2 GM, Admixture Fee 1 EACH in Sodium Chloride 0.9% 100 ML IVPB SCH (06:08)
[2018-01-10] MEDS: Furosemide 20 MG/2 ML VIAL SLOW IVP SCH (06:09)
[2018-01-10] MEDS: Sodium Chloride 0.45% 1,000 ML IV SCH ×2 (06:16→18:08)
--- NOTE | 2018-01-10 08:10 | RAD ---
CHEST 1 VIEW: Date: 01/10/18 COMPARISON: 01/09/18. HISTORY: Ventilated patient. Respiratory distress. FINDINGS: Redemonstration of endotracheal tube, nasogastric tube, and a right-sided central venous catheter. Pl eural and parenchymal changes in the left and right lung bases are noted. Lungs are hyperinflated. St able emphysematous changes. No pneumothorax or osseous abnormalities. IMPRESSION: Worsening opacities in the lung bases. POS: H
[2018-01-10] MEDS: Enoxaparin Sodium 40 MG/0.4 ML SYRINGE SC SCH (08:58)
[2018-01-10] MEDS: Famotidine/PF 20 mg/2ml Vial SLOW IVP SCH (08:58)
--- NOTE | 2018-01-10 12:01 | PDOC.PN ---
- Subjective Encounter Start Date: 01/10/18 Encounter Start Time: 08:15 Subjective: on vent, has eyes open, is breathing over vent -: does not follow verbal stimuli -: not seen moving any extremities on purpose - Objective Resuscitation Status: Resuscitation Status FULL:Full Resuscitation MAR Reviewed: Yes Vital Signs & Weight: Vital Signs (12 hours) Temp Pulse Resp Pulse Ox 01/10/18 11:00 98.1 F 01/10/18 10:27 74 01/10/18 10:00 25 H 01/10/18 08:00 25 H 92 L 01/10/18 07:03 84 01/10/18 07:00 97.9 F 01/10/18 06:00 26 H 01/10/18 04:00 98.4 F 28 H 01/10/18 02:00 25 H 01/10/18 01:00 98.1 F Weight Admit Weight 179 lb 14 oz Weight 183 lb 13.848 oz Most Recent Monitor Data Heart Rate from ECG 75 NIBP 136/55 NIBP BP-Mean 82 Respiration from ECG 25 SpO2 91 I&O: 01/09/18 01/10/18 01/11/18 06:59 06:59 06:59 Intake Total 3889 3720 100 Output Total 3700 2265 875 Balance 189 1455 -775 Result Diagrams: 01/10/18 04:23 01/10/18 04:23 Additional Labs: Accuchecks 01/10/18 01/09/18 01/09/18 00:05 16:14 12:19 POC Glucose 231 H 207 H 230 H Phys Exam - Physical Examination HEENT: PERRLA, sclera anicteric Neck: no JVD, supple Respiratory: no wheezing, no rales Cardiovascular: RRR, no significant murmur Gastrointestinal: soft, no distention, positive bowel sounds Musculoskeletal: no edema, pulses present not oriented, has no gag reflex but does cough on trach suction Dx/Plan (1) Acute on chronic respiratory failure with hypercapnia Code(s): J96.22 - ACUTE AND CHRONIC RESPIRATORY FAILURE WITH HYPERCAPNIA Status: Acute (2) Cerebrovascular accident (CVA) due to occlusion of middle cerebral artery Code(s): I63.519 - CEREB INFRC D/T UNSP OCCLS OR STENOS OF UNSP MID CEREB ART Status: Acute Qualifiers: Laterality of affected vessel: left Qualified Code(s): I63.512 - Cerebral infarction due to unspecified occlusion or stenosis of left middle cerebral artery (3) Encephalopathy acute Code(s): G93.40 - ENCEPHALOPATHY, UNSPECIFIED Status: Acute (4) Fracture of femoral neck, right Code(s): S72.001A - FRACTURE OF UNSP PART OF NECK OF RIGHT FEMUR, INIT Status : Acute Comment: Post-op hemiarthoplasty 12/28/2017. (5) Pneumonia Code(s): J18.9 - PNEUMONIA, UNSPECIFIED ORGANISM Status: Acute Qualifiers: Pneumonia type: due to Pneumococcus Laterality: left Lung location: lower lobe of lung Qualified Code(s): J13 - Pneumonia due to Streptococcus pneumoniae (6) COPD with exacerbation Code(s): J44.1 - CHRONIC OBSTRUCTIVE PULMONARY DISEASE W (ACUTE) EXACERBATION Status: Acute Comment: Steroids, nebs. (7) Gastro-esophageal reflux Code(s): K21.9 - GASTRO-ESOPHAGEAL REFLUX DISEASE WITHOUT ESOPHAGITIS Status: Chronic Comment: stable (8) Hypertension Code(s): I10 - ESSENTIAL (PRIMARY) HYPERTENSION Status: Chronic Qualifiers: Hypertension type: essential hypertension Qualified Code(s): I10 - Essential (primary) hypertension - Plan poor prognosis -: is encephalopathic with large cva -: is on meropenem and vanc -: steroids, lasix -: family to d/w and palliative care staff about hospice/wd of care * . Review of Systems - Medications/Allergies Allergies/Adverse Reactions: Allergies Allergy/AdvReac Type Severity Reaction Status Date / Time esomeprazole magnesium Allergy Mild Verified 09/05/12 07:16 [From Nexium] bacitracin Allergy Verified 11/02/12 01:41 [From Neosporin ([id number]-jiv-[id number])] bacitracin zinc Allergy Verified 11/02/12 01:41 [From Neosporin ([id number])] codeine Allergy Verified 09/05/12 06:35 metronidazole [From Flagyl] Allergy Verified 12/11/12 09:58 Metronidazole HCl Allergy Verified 12/11/12 09:58 [From Flagyl] neomycin sulfate Allergy Verified 11/02/12 01:41 [From Neosporin ([id number]-dao-[id number])] nitrofurantoin Allergy Verified 12/11/12 09:58 [Nitrofurantoin] Penicillins Allergy Verified 09/05/12 06:35 polymyxin B Allergy Verified 11/02/12 01:41 [From Neosporin ([id number])] sulfacetamide sodium Allergy Verified 12/11/12 09:58 [From Sulfamide] Medications: Current Medications Acetaminophen (Tylenol) 650 mg ND Q6H PRN PRN Reason: Fever > 101 or Mild Pain Last Admin: 01/06/18 09:50 Dose: 650 mg Albuterol/Ipratropium (Duoneb) 3 ml NEB [id number] [facility] Last Admin: 01/10/18 07:01 Dose: 3 ml Bisacodyl (Dulcolax) 10 mg PO DAILYPRN PRN PRN Reason: Constipation Dextrose/Water (Dextrose 50%) 25 gm SLOW IVP PRN PRN PRN Reason: Hypoglycemia Enoxaparin Sodium (Lovenox) 40 mg SC 0900 [facility] Last Admin: 01/10/18 08:58 Dose: 40 mg Glucagon (Glucagon) 1 mg IM PRN PRN PRN Reason: Hypoglycemia Dextrose/Water (D5w) 1,000 mls @ 0 mls/hr IV .Q0M PRN PRN Reason: Hypoglycemia Sodium Chloride (1/2 Normal Saline) 1,000 mls @ 100 mls/hr IV .Q10H [facility] Last Admin: 01/10/18 06:16 Dose: 1,000 mls Diltiazem HCl 125 mg/ Sodium (Chloride) 125 mls @ 5 mls/hr IVPB INF [facility] Last Admin: 01/09/18 14:17 Dose: 125 mls Insulin Human Lispro (Humalog) 0 units SC .MILD SLIDING SCALE PRN PRN Reason: Mild Correctional Scale Last Admin: 01/10/18 00:09 Dose: 3 unit Insulin Human Lispro (Humalog) 0 units SC .BEDTIME SLIDING SC PRN PRN Reason: Bedtime Correctional Scale Methylprednisolone Sodium Succinate (Solu-Medrol) 40 mg IVP DAILY [facility] Last Admin: 01/10/18 08:57 Dose: 40 mg Mineral Oil/White Petrolatum (Lacri-Lube Ointment) 0 gm EA EYE PRN PRN PRN Reason: Dry Eyes Sodium Chloride (Flush - Normal Saline) 10 ml IVF Q12HR [facility] Last Admin: 01/10/18 08:58 Dose: 10 ml Sodium Chloride (Flush - Normal Saline) 10 ml IVF PRN PRN PRN Reason: Saline Flush
--- NOTE | 2018-01-10 12:37 | PRG ---
DATE OF SERVICE: 01/10/2018 SUBJECTIVE: Ms. Askew is clinically unchanged. She has her eyes open a deviated, but is not resp onsive. Her work of breathing is a little brighter today. OBJECTIVE: Heart rates in the 70s. She is afebrile. Respiratory rates in the teens. Oximetry is 9 2%. She remains mechanically ventilated. Lungs, heart, and abdomen are unchanged. IMPRESSION: Massive cerebrovascular accident with impending herniation. She will never recover from a functional standpoint. Family was supposed to be here this morning at 10:00 to make a decision about withdrawal of care, but they had not shown up when I walked out of the ICU 10 minutes ago. She needs to be a DNR and needs to have care withdrawn. I doubt she would last a day when she is ext ubated. Unfortunately, a very disconnected family makes caring for her in the best possible fashion, difficult in my opinion.
[2018-01-10] MEDS: Diltiazem 125 MG in Sodium Chloride 0.9% 100 ML IVPB SCH (15:00)
[2018-01-11] MEDS: Sodium Chloride 0.45% 1,000 ML IV SCH ×2 (03:52→13:00)
[2018-01-11] MEDS: HumaLOG 300 UNITS/3 ML VIAL SC PRN ×2 (03:53→18:31)
[2018-01-11] MEDS: Enoxaparin Sodium 40 MG/0.4 ML SYRINGE SC SCH (09:54)
--- NOTE | 2018-01-11 11:04 | PDOC.PN ---
- Subjective Encounter Start Date: 01/11/18 Encounter Start Time: 09:00 Subjective: awakens to touch, not oriented -: no purposefull movement seen -: on vent - Objective Resuscitation Status: Resuscitation Status FULL:Full Resuscitation MAR Reviewed: Yes Vital Signs & Weight: Vital Signs (12 hours) Temp Pulse Resp Pulse Ox 01/11/18 10:57 79 01/11/18 06:21 79 01/11/18 06:00 22 H 01/11/18 04:00 98.2 F 23 H 01/11/18 02:00 23 H 01/11/18 00:00 98.3 F 25 H 01/10/18 23:25 67 23 H 95 Weight Admit Weight 179 lb 14 oz Weight 182 lb 15.739 oz Most Recent Monitor Data Heart Rate from ECG 86 NIBP 141/56 NIBP BP-Mean 84 Respiration from ECG 25 SpO2 97 I&O: 01/10/18 01/11/18 01/12/18 06:59 06:59 06:59 Intake Total 3720 3836 Output Total 2265 3725 Balance 1455 111 Result Diagrams: 01/10/18 04:23 01/10/18 04:23 Additional Labs: Accuchecks 01/11/18 01/10/18 01/10/18 03:36 21:02 17:27 POC Glucose 206 H 199 H 224 H 01/10/18 12:26 POC Glucose 182 H Phys Exam - Physical Examination HEENT: PERRLA, moist MMs Neck: no JVD, supple Respiratory: no wheezing, no rales Cardiovascular: RRR, no significant murmur Gastrointestinal: soft, non-tender, positive bowel sounds Musculoskeletal: no edema, pulses present breathes over vent, pupils 4mm reacting, has mild reflex wd to babinski Dx/Plan (1) Acute on chronic respiratory failure with hypercapnia Code(s): J96.22 - ACUTE AND CHRONIC RESPIRATORY FAILURE WITH HYPERCAPNIA Status: Acute (2) Cerebrovascular accident (CVA) due to occlusion of middle cerebral artery Code(s): I63.519 - CEREB INFRC D/T UNSP OCCLS OR STENOS OF UNSP MID CEREB ART Status: Acute Qualifiers: Laterality of affected vessel: left Qualified Code(s): I63.512 - Cerebral infarction due to unspecified occlusion or stenosis of left middle cerebral artery (3) Encephalopathy acute Code(s): G93.40 - ENCEPHALOPATHY, UNSPECIFIED Status: Acute (4) Fracture of femoral neck, right Code(s): S72.001A - FRACTURE OF UNSP PART OF NECK OF RIGHT FEMUR, INIT Status : Acute Comment: Post-op hemiarthoplasty 12/28/2017. (5) Pneumonia Code(s): J18.9 - PNEUMONIA, UNSPECIFIED ORGANISM Status: Acute Qualifiers: Pneumonia type: due to Pneumococcus Laterality: left Lung location: lower lobe of lung Qualified Code(s): J13 - Pneumonia due to Streptococcus pneumoniae (6) COPD with exacerbation Code(s): J44.1 - CHRONIC OBSTRUCTIVE PULMONARY DISEASE W (ACUTE) EXACERBATION Status: Acute Comment: Steroids, nebs. (7) Gastro-esophageal reflux Code(s): K21.9 - GASTRO-ESOPHAGEAL REFLUX DISEASE WITHOUT ESOPHAGITIS Status: Chronic Comment: stable (8) Hypertension Code(s): I10 - ESSENTIAL (PRIMARY) HYPERTENSION Status: Chronic Qualifiers: Hypertension type: essential hypertension Qualified Code(s): I10 - Essential (primary) hypertension - Plan palliative care and family to decide on hospice/code status -: is on steroids, nebs and gentle iv hydration -: poor prognosis with massive left mca infarct and encephalopathy -: no clinical improvement from admission on 12/25/2017 neuro sweeney -: is developing foot drop, may wear orthotics for the same * . Review of Systems - Medications/Allergies Allergies/Adverse Reactions: Allergies Allergy/AdvReac Type Severity Reaction Status Date / Time esomeprazole magnesium Allergy Mild Verified 09/05/12 07:16 [From Nexium] bacitracin Allergy Verified 11/02/12 01:41 [From Neosporin ([id number]-yjk-[id number])] bacitracin zinc Allergy Verified 11/02/12 01:41 [From Neosporin (mtb-nnu-jauvh)] codeine Allergy Verified 09/05/12 06:35 metronidazole [From Flagyl] Allergy Verified 12/11/12 09:58 Metronidazole HCl Allergy Verified 12/11/12 09:58 [From Flagyl] neomycin sulfate Allergy Verified 11/02/12 01:41 [From Neosporin ([id number]-[id number]-[id number])] nitrofurantoin Allergy Verified 12/11/12 09:58 [Nitrofurantoin] Penicillins Allergy Verified 09/05/12 06:35 polymyxin B Allergy Verified 11/02/12 01:41 [From Neosporin ([id number]-dat-[id number])] sulfacetamide sodium Allergy Verified 12/11/12 09:58 [From Sulfamide] Medications: Current Medications Acetaminophen (Tylenol) 650 mg CA Q6H PRN PRN Reason: Fever > 101 or Mild Pain Last Admin: 01/06/18 09:50 Dose: 650 mg Albuterol/Ipratropium (Duoneb) 3 ml NEB [id number] [facility] Last Admin: 01/11/18 06:21 Dose: 3 ml Bisacodyl (Dulcolax) 10 mg PO DAILYPRN PRN PRN Reason: Constipation Dextrose/Water (Dextrose 50%) 25 gm SLOW IVP PRN PRN PRN Reason: Hypoglycemia Enoxaparin Sodium (Lovenox) 40 mg SC 0900 [facility] Last Admin: 01/11/18 09:54 Dose: 40 mg Glucagon (Glucagon) 1 mg IM PRN PRN PRN Reason: Hypoglycemia Dextrose/Water (D5w) 1,000 mls @ 0 mls/hr IV .Q0M PRN PRN Reason: Hypoglycemia Sodium Chloride (1/2 Normal Saline) 1,000 mls @ 100 mls/hr IV .Q10H [facility] Last Admin: 01/11/18 03:52 Dose: 1,000 mls Diltiazem HCl 125 mg/ Sodium (Chloride) 125 mls @ 5 mls/hr IVPB INF [facility] Last Admin: 01/10/18 15:00 Dose: 125 mls Insulin Human Lispro (Humalog) 0 units SC .MILD SLIDING SCALE PRN PRN Reason: Mild Correctional Scale Last Admin: 01/11/18 03:53 Dose: 3 unit Insulin Human Lispro (Humalog) 0 units SC .BEDTIME SLIDING SC PRN PRN Reason: Bedtime Correctional Scale Methylprednisolone Sodium Succinate (Solu-Medrol) 40 mg IVP DAILY [facility] Last Admin: 01/11/18 09:54 Dose: 40 mg Mineral Oil/White Petrolatum (Lacri-Lube Ointment) 0 gm EA EYE PRN PRN PRN Reason: Dry Eyes Sodium Chloride (Flush - Normal Saline) 10 ml IVF Q12HR [facility] Last Admin: 01/11/18 09:55 Dose: 10 ml Sodium Chloride (Flush - Normal Saline) 10 ml IVF PRN PRN PRN Reason: Saline Flush
--- NOTE | 2018-01-11 13:01 | PRG ---
DATE OF SERVICE: 01/11/2018 SUBJECTIVE: Ms. Askew remains unresponsive and in the event was intubated. OBJECTIVE: VITAL SIGNS: Pulse is 71, blood pressure is 118/47, sats are 97 on room air, respirations 24. HEENT: Pupils are equal. CHEST: Decreased breath sounds. No wheezing. CARDIAC: Normal S1, S2. No gallops. ABDOMEN: Soft, no masses. NEUROLOGIC: Unresponsive. LABORATORY DATA: No recent lab has been done. IMPRESSION: Massive intracerebral hemorrhage, respiratory failure. PLAN: Comfort care. Await family input. One-half hour critical care time.
[2018-01-12] MEDS: Sodium Chloride 0.45% 1,000 ML IV SCH ×2 (00:07→09:43)
[2018-01-12] MEDS: HumaLOG 300 UNITS/3 ML VIAL SC PRN (04:18)
--- NOTE | 2018-01-12 09:21 | PRG ---
DATE OF SERVICE: 01/12/2018 SUBJECTIVE: She remains unresponsive, on the vent. OBJECTIVE: VITAL SIGNS: Blood pressure is 85/37, pulse 53, sats are 99%, is unresponsive. CHEST: Decreased breath sounds, no wheezing. CARDIAC: Normal S1 and S2, no gallops. ABDOMEN: Soft without masses. NEUROLOGIC: Unresponsive. X-ray yesterday shows minimal bibasilar infiltrates. No lab was done this morning. IMPRESSION: 1. Status post cerebrovascular accident. 2. Respiratory failure. PLAN: Apparently, family is to arrive today to make a decision about comfort care. She is a DNR. Continue nutrition and supportive care. [id number] critical care time.
[2018-01-12] MEDS: Enoxaparin Sodium 40 MG/0.4 ML SYRINGE SC SCH (09:43)
[2018-01-12] MEDS ORDERED: Lorazepam 2 MG/ML VIAL SLOW IVP PRN (09:44)
--- NOTE | 2018-01-12 12:29 | PDOC.PN ---
- Subjective Encounter Start Date: 01/12/18 Encounter Start Time: 11:00 Subjective: awake, does not follow -: on vent - Objective Resuscitation Status: Resuscitation Status DNR:Do Not Resuscitate MAR Reviewed: Yes Vital Signs & Weight: Vital Signs (12 hours) Temp Pulse Resp Pulse Ox 01/12/18 12:00 27 H 01/12/18 10:00 28 H 01/12/18 09:56 88 01/12/18 08:00 98.0 F 25 H 98 01/12/18 06:46 88 01/12/18 06:00 26 H 01/12/18 04:00 97.8 F 25 H 01/12/18 02:00 28 H Weight Admit Weight 179 lb 14 oz Weight 182 lb 15.739 oz Most Recent Monitor Data Heart Rate from ECG 86 NIBP 133/51 NIBP BP-Mean 78 Respiration from ECG 28 SpO2 97 I&O: 01/11/18 01/12/18 01/13/18 06:59 06:59 06:59 Intake Total 3836 3737 Output Total 3725 3530 1410 Balance 111 207 -1410 Result Diagrams: 01/10/18 04:23 01/10/18 04:23 Additional Labs: Accuchecks 01/12/18 01/12/18 01/11/18 10:56 04:17 22:09 POC Glucose 141 H 190 H 187 H 01/11/18 18:08 POC Glucose 246 H Phys Exam - Physical Examination HEENT: PERRLA, sclera anicteric Neck: no JVD, supple Respiratory: no wheezing, no rales Cardiovascular: RRR, no significant murmur Gastrointestinal: soft, non-tender, positive bowel sounds Musculoskeletal: pulses present, edema present foot drop awake, not oriented, no purposefull movement, is overbreathing vent Dx/Plan (1) Acute on chronic respiratory failure with hypercapnia Code(s): J96.22 - ACUTE AND CHRONIC RESPIRATORY FAILURE WITH HYPERCAPNIA Status: Acute (2) Cerebrovascular accident (CVA) due to occlusion of middle cerebral artery Code(s): I63.519 - CEREB INFRC D/T UNSP OCCLS OR STENOS OF UNSP MID CEREB ART Status: Acute Qualifiers: Laterality of affected vessel: left Qualified Code(s): I63.512 - Cerebral infarction due to unspecified occlusion or stenosis of left middle cerebral artery (3) Encephalopathy acute Code(s): G93.40 - ENCEPHALOPATHY, UNSPECIFIED Status: Acute (4) Fracture of femoral neck, right Code(s): S72.001A - FRACTURE OF UNSP PART OF NECK OF RIGHT FEMUR, INIT Status : Acute Comment: Post-op hemiarthoplasty 12/28/2017. (5) Pneumonia Code(s): J18.9 - PNEUMONIA, UNSPECIFIED ORGANISM Status: Acute Qualifiers: Pneumonia type: due to Pneumococcus Laterality: left Lung location: lower lobe of lung Qualified Code(s): J13 - Pneumonia due to Streptococcus pneumoniae (6) COPD with exacerbation Code(s): J44.1 - CHRONIC OBSTRUCTIVE PULMONARY DISEASE W (ACUTE) EXACERBATION Status: Acute Comment: Steroids, nebs. (7) Gastro-esophageal reflux Code(s): K21.9 - GASTRO-ESOPHAGEAL REFLUX DISEASE WITHOUT ESOPHAGITIS Status: Chronic Comment: stable (8) Hypertension Code(s): I10 - ESSENTIAL (PRIMARY) HYPERTENSION Status: Chronic Qualifiers: Hypertension type: essential hypertension Qualified Code(s): I10 - Essential (primary) hypertension - Plan family to decide on withdrawal of care -: is dnr -: on nebs, steroids and iv fluids -: very poor prognosis with massive cva and encephalopathy * . Review of Systems - Medications/Allergies Allergies/Adverse Reactions: Allergies Allergy/AdvReac Type Severity Reaction Status Date / Time esomeprazole magnesium Allergy Mild Verified 09/05/12 07:16 [From Nexium] bacitracin Allergy Verified 11/02/12 01:41 [From Neosporin (cjw-tib-qrrqz)] bacitracin zinc Allergy Verified 11/02/12 01:41 [From Neosporin ([id number]-qhn-wugcm)] codeine Allergy Verified 09/05/12 06:35 metronidazole [From Flagyl] Allergy Verified 12/11/12 09:58 Metronidazole HCl Allergy Verified 12/11/12 09:58 [From Flagyl] neomycin sulfate Allergy Verified 11/02/12 01:41 [From Neosporin ([id number]-[id number])] nitrofurantoin Allergy Verified 12/11/12 09:58 [Nitrofurantoin] Penicillins Allergy Verified 09/05/12 06:35 polymyxin B Allergy Verified 11/02/12 01:41 [From Neosporin ([id number]-[id number]-jjord)] sulfacetamide sodium Allergy Verified 12/11/12 09:58 [From Sulfamide] Medications: Current Medications Acetaminophen (Tylenol) 650 mg ID Q6H PRN PRN Reason: Fever > 101 or Mild Pain Last Admin: 01/06/18 09:50 Dose: 650 mg Albuterol/Ipratropium (Duoneb) 3 ml NEB [id number] [facility] Last Admin: 01/12/18 06:45 Dose: 3 ml Bisacodyl (Dulcolax) 10 mg PO DAILYPRN PRN PRN Reason: Constipation Dextrose/Water (Dextrose 50%) 25 gm SLOW IVP PRN PRN PRN Reason: Hypoglycemia Enoxaparin Sodium (Lovenox) 40 mg SC 0900 [facility] Last Admin: 01/12/18 09:43 Dose: 40 mg Glucagon (Glucagon) 1 mg IM PRN PRN PRN Reason: Hypoglycemia Dextrose/Water (D5w) 1,000 mls @ 0 mls/hr IV .Q0M PRN PRN Reason: Hypoglycemia Sodium Chloride (1/2 Normal Saline) 1,000 mls @ 100 mls/hr IV .Q10H [facility] Last Admin: 01/12/18 09:43 Dose: 1,000 mls Diltiazem HCl 125 mg/ Sodium (Chloride) 125 mls @ 5 mls/hr IVPB INF [facility] Last Admin: 01/10/18 15:00 Dose: 125 mls Insulin Human Lispro (Humalog) 0 units SC .MILD SLIDING SCALE PRN PRN Reason: Mild Correctional Scale Last Admin: 01/12/18 04:18 Dose: 2 unit Insulin Human Lispro (Humalog) 0 units SC .BEDTIME SLIDING SC PRN PRN Reason: Bedtime Correctional Scale Lorazepam (Ativan) 2 mg SLOW IVP Q2H PRN PRN Reason: Anxiety/Agitation Methylprednisolone Sodium Succinate (Solu-Medrol) 40 mg IVP DAILY [facility] Last Admin: 01/12/18 09:44 Dose: 40 mg Mineral Oil/White Petrolatum (Lacri-Lube Ointment) 0 gm EA EYE PRN PRN PRN Reason: Dry Eyes Morphine Sulfate (Morphine) 4 mg SLOW IVP Q2H PRN PRN Reason: Moderate to Severe Pain (6-10) Sodium Chloride (Flush - Normal Saline) 10 ml IVF Q12HR [facility] Last Admin: 01/12/18 09:44 Dose: 10 ml Sodium Chloride (Flush - Normal Saline) 10 ml IVF PRN PRN PRN Reason: Saline Flush
[2018-01-12] MEDS: Morphine 4 MG/ML VIAL SLOW IVP PRN ×2 (13:22→18:33)
[2018-01-12] MEDS ORDERED: Scopolamine 1.5 mg/72 hour Patch TD SCH (17:30)
[2018-01-13] MEDS: Morphine 4 MG/ML VIAL SLOW IVP PRN (03:13)
[2018-01-13 08:35] VITALS: BP 85/50; TEMP 96.6
--- NOTE | 2018-01-13 20:17 | DIS ---
DATE OF : 01/13/2018 at 9:05 a.m. PRIMARY CAUSE OF : Acute respiratory failure with hypoxia and hypercarbia secondary to end-stage chronic obstructive pulmonary disease, massive cerebrovascular accident with occlusion of left middle cerebral artery, acute encephalopathy secondary to stroke, right femoral neck fracture status post hemiarthroplasty, pneumonia, chronic obstructive pulmonary disease exacerbation , factors contributing to , hypertension, end-stage chronic obstructive pulmonary disease. BRIEF COURSE DURING HOSPITALIZATION: Patient initially was admitted on the first after she had a fall and had right hip fracture with respiratory failure. She was intubated on arrival. Patient has known history of COPD, which is end stage. She was admitted to ICU. She has had consultation with Dr. Posadas/ Lilia, Dr. Myers for Orthopedic Surgery and Dr. Chavez for Neurology. Patient had a hemiarthroplasty done for the hip fracture. As the patient initially was unstable, she was stabilized and has had an MRI done on the which revealed large subacute infarct in the left middle cerebral artery territory involving an estimated 50-75% involvement of the territory. There was associated mass effect, subfalcine herniation and extensive petechial hemorrhage. There were also multiple subacute small infarcts in the contralateral right posterior fossa with patchy areas in the right cerebral hemisphere as well. She had chronic occlusion of right carotid siphon and perfusion of the right MCA and right anterior cerebral artery were presumably via collateral flow from intact [place] based on the MRI findings. Patient was encephalopathic all through her stay and was unresponsive. She was not having any voluntary movement. She remained on the vent all through her stay. As her prognosis was very poor, family consultations were held by Dr. Rodrigues who knew patient due to his long association with the patient due to COPD. After multiple deliberations, family decided for withdrawal of care and do not resuscitate status. She went for withdrawal of care yesterday that is on the . Patient was pronounced at 9:05 a.m. on the , this morning. The body will be released to family per hospital protocol. [facility]
== END 2018-01-13 09:05 | disposition expired | DRG 853 ==
LOC: ERS 16:58 → CCU 19:00 → ONC 01-12 14:59
PROVIDERS: ADMIT Family Medicine; ATTEND Family Medicine
PROC: 5A1955Z Respiratory Ventilation, Greater than 96 Consecutive Hours (ICD-10-PCS; 2017-12-25)
PROC: 0BH17EZ Insertion of Endotracheal Airway into Trachea, Via Natural or Artificial Opening (ICD-10-PCS; 2017-12-25)
PROC: 4A00X4Z Measurement of Central Nervous Electrical Activity, External Approach (ICD-10-PCS; 2017-12-25)
PROC: 05HM33Z Insertion of Infusion Device into Right Internal Jugular Vein, Percutaneous Approach (ICD-10-PCS; 2017-12-26)
PROC: 0SRR0JZ Replacement of Right Hip Joint, Femoral Surface with Synthetic Substitute, Open Approach (ICD-10-PCS; principal; 2017-12-28)
DX: A40.3 Sepsis due to Streptococcus pneumoniae (principal); S72.001A Fracture of unspecified part of neck of right femur, initial encounter for closed fracture; J13 Pneumonia due to Streptococcus pneumoniae; R65.21 Severe sepsis with septic shock; J96.02 Acute respiratory failure with hypercapnia; J96.01 Acute respiratory failure with hypoxia; I63.312 Cerebral infarction due to thrombosis of left middle cerebral artery; S32.512A Fracture of superior rim of left pubis, initial encounter for closed fracture; J44.0 Chronic obstructive pulmonary disease with (acute) lower respiratory infection; J44.1 Chronic obstructive pulmonary disease with (acute) exacerbation; G93.49 Other encephalopathy; W19.XXXA Unspecified fall, initial encounter; Y92.009 Unspecified place in unspecified non-institutional (private) residence as the place of occurrence of the external cause; E78.5 Hyperlipidemia, unspecified; K21.9 Gastro-esophageal reflux disease without esophagitis; I10 Essential (primary) hypertension; Z87.891 Personal history of nicotine dependence; E87.8 Other disorders of electrolyte and fluid balance, not elsewhere classified; J98.01 Acute bronchospasm; Z51.5 Encounter for palliative care; I48.91 Unspecified atrial fibrillation; Z66 Do not resuscitate
CPT/HCPCS: 31500; 36415; 36416; 36430; 43752; 51702; 70450; 70553; 71045; 71275; 72170; 80053; 80202; 81003; 81015; 82553; 82805; 83605; 83690; 83880; 84146; 84484; 85007; 85025; 85027; 85379; 86850; 86900; 86901; 87040; 87077; 87086; 87149; 87324; 87449; 87804; 89220; 93005; 94002; 94003; 94640; 94644; 94660; 94760; 95816; 95819; 96365; 96367; 96368; 96375; A9579; G8978-GP-CN; G8979-GP-CK; G8979-GP-CL; J0692; J1100; J1160; J1265; J1650; J1940; J1953; J1956; J2060; J2185; J2270; J2704; J2920; J3010; J3370; J3490; J7050; J7506; J7611; J7620; P9016; S0028